=== PATIENT | male | born 1960 | race Caucasian/White ===

== ENCOUNTER 2017-08-04 16:35 | Inpatient (IN) | payer OTHER ==
[2017-08-04] MEDS ORDERED: Labetalol 25mg/5ml Syringe IV STA (17:12)
[2017-08-04] MEDS ORDERED: Labetalol 25mg/5ml Syringe ONE (17:13)
[2017-08-04 17:25] LABS: BASO # 0.1 K/uL (0.0-0.2); BASO % 0.6 % (0.0-2.0); EOS # 0.1 K/uL (0.0-0.7); EOS % 0.7 % (0.0-4.0); HEMOGLOBIN 12.5 g/dL (12.0-18.0); LYMPH # 1.8 K/uL (1.0-4.3); LYMPH % 16.9 % (20.0-40.0); MEAN CELL VOLUME 87.8 fL (80.0-94.0); MEAN CORPUSCULAR HEMOGLOBIN 30.8 pg (27.0-31.0); MEAN CORPUSCULAR HGB CONC 35.1 g/dL (33.0-37.0); MONO # 0.5 K/uL (0.0-0.8); MONO % 5.1 % (0.0-10.0); NEUT # 8.1 K/uL (1.8-7.0); NEUT % 76.7 % (50.0-75.0); NRBC % 0.1 % (0.0-2.0); RBC 4.05 Mil/uL (4.40-5.90); RED CELL DISTRIBUTION WIDTH 13.6 % (11.5-14.5); WHITE BLOOD COUNT 10.6 K/uL (4.8-10.8)
[2017-08-04] MEDS ORDERED: Sodium Chloride 0.9% 1,000 ML IV ONE (17:33)
[2017-08-04] MEDS ORDERED: (Novolin R) Insulin Human Regular 100 units/ml vial IV ONE (17:33)
[2017-08-04 17:39] LABS: ALBUMIN 3.7 g/dL (3.5-5.0); CALCIUM 9.1 mg/dl (8.6-10.4)
[2017-08-04] MEDS ORDERED: Sodium Chloride 0.9% 1,000 ML ONE (17:51)
[2017-08-04] MEDS ORDERED: (Novolin R) Insulin Human Regular 100 units/ml vial ONE (17:52)
--- NOTE | 2017-08-04 18:12 | CT ---
PROCEDURE: CT scan brain dated 08/04/2017 HISTORY: Headache COMPARISON: None available. TECHNIQUE: Axial computed tomography images were obtained through the head/brain without intravenous contrast. Radiation dose: Total exam DLP = 881.46 mGy-cm. This CT exam was performed using one or more of the following dose reduction techniques: Automated exposure control, adjustment of the mA and/or kV according to patient size, and/or use of iterative reconstruction technique. FINDINGS: HEMORRHAGE: The current study reveals what appears represent a large amount of subarachnoid hemorrhage pre pontine cistern extending posteriorly and inferiorly into the ambient cistern more so on the right side and pre medullary cistern and anterior to upper cervicomedullary junction. . Hemorrhage is also seen layering along the tentorium. While this could be secondary to rupture of a telangiectasia the possibility of a basilar tip aneurysm must also be excluded. Followup CTA of the brain is recommended. BRAIN: There are mild chronic periventricular white matter ischemic changes seen extending peripherally into the deep and subcortical regions of both cerebral hemispheres most pronounced in the occipito parietal watershed zones. There are also chronic bilateral basal nuclei lacunar type infarcts. VENTRICLES: No obstructive hydrocephalus. CALVARIUM: Unremarkable. PARANASAL SINUSES: Unremarkable as visualized. No significant inflammatory changes. MASTOID AIR CELLS: Unremarkable as visualized. No inflammatory changes. OTHER FINDINGS: None. IMPRESSION: The current study reveals what appears represent a large amount of subarachnoid hemorrhage pre pontine cistern extending posteriorly and inferiorly into the ambient cistern more so on the right side and premedullary cistern and anterior to upper cervicomedullary junction. . Hemorrhage is also seen layering along the tentorium. While this could be secondary to rupture of a telangiectasia the possibility of a basilar tip aneurysm must also be excluded. Followup CTA of the brain is recommended. Findings discussed with Dr. Calvillo at approximately 6 p.m. with written down and read back verification.
--- NOTE | 2017-08-04 18:19 | C.PDOC ---
History Of Present Illness 56 year old male, whose PMHx includes HTN, presents to the ED for evaluation of headache which began at around 1300 today. Patient states he was at work when he started to feel hot and flushed. His blood pressure was noted to be 216/135 in ED. Patient denies vision change, chest pain, and shortness of breath. He reports that he is compliant with his blood pressure medication and did take it this morning. Time Seen by Provider: 08/04/17 17:11 Chief Complaint (Nursing): Abdominal Pain History Per: Patient History/Exam Limitations: no limitations Onset/Duration Of Symptoms: Hrs Current Symptoms Are (Timing): Still Present Quality Of Discomfort: Aching Associated Symptoms: denies: Chest Pain Additional History Per: Patient Past Medical History Reviewed: Historical Data, Nursing Documentation, Vital Signs Vital Signs: Last Vital Signs Temp 98 F 08/04/17 16:54 Pulse 101 H 08/04/17 18:55 Resp 33 H 08/04/17 18:55 BP 231/130 H 08/04/17 19:00 Pulse Ox 99 08/04/17 19:39 - Medical History PMH: Asthma, CHF, COPD, Diabetes, HTN (uncontrolled), Hypercholesterolemia Denies: Chronic Kidney Disease Surgical History: Appendectomy (1997), Coronary Stent (1 stent placed 5 years ago) - [facility] Procedures DETOXIFICATION SERVICES FOR SUBSTANCE ABUSE TREATMENT (05/17/15) INSERTION OF ENDOTRACHEAL AIRWAY INTO TRACHEA, VIA OPENING (05/17/15) MEASURE OF CARDIAC SAMPL & PRESSURE, L HEART, PERC APPROACH (05/17/15) OTHER APPENDECTOMY (04/09/98) PLAIN RADIOGRAPHY OF LEFT HEART USING OTHER CONTRAST (05/17/15) PLAIN RADIOGRAPHY OF MULT COR ART USING OTH CONTRAST (05/17/15) RESPIRATORY VENTILATION, 24-96 CONSECUTIVE HOURS (05/17/15) Family History: States: Unknown Family Hx - Social History Hx Tobacco Use: Yes Hx Alcohol Use: Yes Hx Substance Use: No - Immunization History Hx Tetanus Toxoid Vaccination: Yes Hx Influenza Vaccination: No Hx Pneumococcal Vaccination: No Review Of Systems Constitutional: Positive for: Other (feeling hot and flushed ) Eyes: Negative for: Vision Change Cardiovascular: Negative for: Chest Pain Respiratory: Negative for: Shortness of Breath Neurological: Positive for: Headache Physical Exam - Physical Exam Appears: Non-toxic Skin: Warm, Dry, Other (flushed ) Head: Atraumatic, Normacephalic Eye(s): bilateral: Normal Inspection, PERRL, EOMI Oral Mucosa: Moist Neck: Normal ROM, Supple Chest: Symmetrical, No Deformity, No Tenderness Cardiovascular: Rhythm Regular, No Murmur Respiratory: Normal Breath Sounds, No Rales, No Rhonchi, No Wheezing Gastrointestinal/Abdominal: Normal Exam, Soft, No Tenderness Extremity: Normal ROM, Pedal Edema (2+ pitting in both lower legs), Capillary Refill (less than 2 seconds ) Pulses: Left Carotid: Normal, Right Carotid: Normal Neurological/Psych: Oriented x3, Normal Speech, Normal Cognition, Normal Cranial Nerves, Cerebellar Signs, Normal Motor, Normal Sensation, Normal Reflexes Gait: Steady Extremity: Right: No Drift, Left: No Drift, Upper: No Drift, Lower: No Drift ED Course And Treatment - Laboratory Results Result Diagrams: 08/04/17 17:20 08/04/17 17:20 Lab Interpretation: Abnormal (Glucose 455, BNP 8630, normal Troponin) ECG: Interpreted By Me ECG Rhythm: Sinus Tachycardia, ST/T Changes (T waves inverted I,AVL) O2 Sat by Pulse Oximetry: 99 (on RA) Pulse Ox Interpretation: Normal - Radiology CXR: Interpreted by Me CXR Interpretation: Yes: Cardiomegaly, Other (bilateral patchy infiltrates ) - CT Scan/US CT brain Other Rad Studies (CT/US): Interpreted By Me, Read By Radiologist CT/US Interpretation: PROCEDURE: CT scan brain dated 08/04/2017. HISTORY: Headache. COMPARISON: None available. TECHNIQUE: Axial computed tomography images were obtained through the head/brain without intravenous contrast. Radiation dose: Total exam DLP = 881.46 mGy-cm. This CT exam was performed using one or more of the following dose reduction techniques: Automated exposure control, adjustment of the mA and/or kV according to patient size, and/ or use of iterative reconstruction technique. FINDINGS: HEMORRHAGE: The current study reveals what appears represent a large amount of subarachnoid hemorrhage pre pontine cistern extending posteriorly and inferiorly into the ambient cistern more so on the right side and pre medullary cistern and anterior to upper cervicomedullary junction. . Hemorrhage is also seen layering along the tentorium. While this could be secondary to rupture of a telangiectasia the possibility of a basilar tip aneurysm must also be excluded. Followup CTA of the brain is recommended. BRAIN: There are mild chronic periventricular white matter ischemic changes seen extending peripherally into the deep and subcortical regions of both cerebral hemispheres most pronounced in the occipito parietal watershed zones. There are also chronic bilateral basal nuclei lacunar type infarcts. VENTRICLES: No obstructive hydrocephalus. CALVARIUM: Unremarkable. PARANASAL SINUSES: Unremarkable as visualized. No significant inflammatory changes. MASTOID AIR CELLS: Unremarkable as visualized. No inflammatory changes. OTHER FINDINGS: None. IMPRESSION: The current study reveals what appears represent a large amount of subarachnoid hemorrhage pre pontine cistern extending posteriorly and inferiorly into the ambient cistern more so on the right side and premedullary cistern and anterior to upper cervicomedullary junction. . Hemorrhage is also seen layering along the tentorium. While this could be secondary to rupture of a telangiectasia the possibility of a basilar tip aneurysm must also be excluded. Followup CTA of the brain is recommended. Findings discussed with Dr. Calvillo at approximately 6 p.m. with written down and read back verification. CTA Head Other Rad Studies (CT/US): Interpreted By Me, Read By Radiologist, Radiology Report Reviewed CT/US Interpretation: EXAM: CT Angiography Head With Intravenous Contrast. CLINICAL HISTORY: 56 years old, male; Condition or disease; Other: Hemmorhage; Additional info: Subarachnoid. hemorrhoid. TECHNIQUE: Axial computed tomographic angiography images of the head with intravenous contrast using CT. angiography protocol. All CT scans at this facility use one or more dose reduction techniques, viz.: automated exposure control; ma/kV adjustment per patient size (including targeted exams where. dose is matched to indication; i.e. head); or iterative reconstruction technique. MIP reconstructed images were created and reviewed. CONTRAST: 100 mL of visipaque 320 administered intravenously. COMPARISON: CT - HEAD W/O CONTRAST 2017-08-04 17:38. FINDINGS : Right internal carotid artery: The right cavernous ICA with diffuse arteriosclerosis of the arterial wall. Intracranial segment is patent with no significant stenosis. No aneurysm. Right anterior cerebral artery: Unremarkable. No occlusion or significant stenosis. No aneurysm. Right middle cerebral artery: Unremarkable. No occlusion or significant stenosis. No aneurysm. Right posterior cerebral artery: Unremarkable. No occlusion or significant stenosis. No aneurysm. Right vertebral artery: Unremarkable as visualized. Left internal carotid artery: The left cavernous ICA with diffuse arteriosclerosis of the arterial wall. Intracranial segment is patent with no significant stenosis. No aneurysm. Left anterior cerebral artery: Unremarkable. No occlusion or significant stenosis. No aneurysm. Left middle cerebral artery: Unremarkable. No occlusion or significant stenosis. No aneurysm. Left posterior cerebral artery: Unremarkable. No occlusion or significant stenosis. No aneurysm. Left vertebral artery: Unremarkable as visualized. Basilar artery: Unremarkable. No occlusion or significant stenosis. No aneurysm Other findings: Persistent circulation pattern is seen on the right, normal anatomic variant. IMPRESSION: No significant vascular abnormalities are visualized. Stenosis, no aneurysm, no arterial occlusion. Progress Note: Case discussed with Dr Roque and Dr Carvajal. Patient is not a surgical candidate at this time. Case to be discussed with Dr Wilson for IR. Patient continued to be severely hypertensiove despite receiving Labetolol 20mg IVP x2, Nicardipine drip, Hydralazine 10mg IVP. He developed a flash pulmonary edema with decrease of pulse ox to 92% on 2l NC associated with respiratory distress. Patient denies assoicated chest pain. O2 increased to 100 % NRB and patient administered Lasix 80mg IVP and NTG 0.4mg SL. Cross catheter inserted and drained 1200ml of clear urine. BP gradually decreased to 170/90 and respiratory distress resolved. Reevaluation Time: 19:59 Reassessment Condition: Improved - Physician Consult Information Outcome Of Conversation: Dr Romeo evaluated patient for admission to ICU. Dr Robles notified and accepts patient for Dr Fish. Dr Wilson states patient can be transferred to [facility] tomorrow after stabilization tonight. Medical Decision Making Medical Decision Making: Progress: Bloodwork, CXR, CT Angiography Head, CTA Head/Neck, CT Head ordered and reviewed. Novolin IV, Trandate IV, Cardene IV, and IV Fluids administered. Patient with sudden onset of shortness of breath. Patient denies chest pain. Diffuse rales and tachypnea noted. EKG shows no ST segment changes. 80mg Lasix IVP and 0.4mg Nitroglycerin SL administered. Patient's blood pressure continues to be elevated. 10mg Hydralazine administered. 19:32 Patient's condition has improved. He is resting comfortably, and appears to be in no further respiratory distress. blood pressure is now 170/90. 1200cc of urine obtained. Disposition - Disposition Disposition: HOSPITALIZED Disposition Time: 20:00 Condition: CRITICAL - POA Present On Arrival: Poor Glycemic Control - Clinical Impression Clinical Impression: Pulmonary edema, Subarachnoid hemorrhage - Scribe Statement The provider has reviewed the documentation as recorded by the Scribe Provider Attestation: All medical record entries made by the Scribe were at my direction and personally dictated by me. I have reviewed the chart and agree that the record accurately reflects my personal performance of the history, physical exam, medical decision making, and the department course for this patient. I have also personally directed, reviewed, and agree with the discharge instructions and disposition.
[2017-08-04] MEDS ORDERED: Iodixanol 320 MG/ML 100 ML BOTTLE IV ONE (18:24)
[2017-08-04] MEDS: niCARdipine IV 25 MG in Sodium Chloride 0.9% 240 ML IV SCH ×2 (18:30→21:30)
[2017-08-04 19:33] LABS: TROPONIN I 0.077 ng/mL (0.00-0.120)
--- NOTE | 2017-08-04 20:19 | CP.PCM.CON ---
History of Present Illness - History of Present Illness History of Present Illness: Attending: Abe Becerra MD PMD: Angelica Cardenas MD Reason for Consult: Critical care management Chief Complaint: Headache/Vomiting The Patient was seen and examined in the ED with his family present HPI: The hx was obtained from the Patient, his family and after review of the medical records. He is a 56 years old male with hx of DM II, HTN , CAD and Alcohol dependence. He was brought to the ED after he developed a sudden severe cja-[id number]-qysomrhe headache at work, feeling hot and flush with dizziness, blurring of the vision, nausea, vomits. No loss of consciousness, no hx of trauma. No chest pain nor palpitations. In the ED he was found to have Blood Pressure of 248/136mmHg. He was treated with IV labetalol, Hydralazine and later Cardene started. He also developed new and sudden unset of Shortness of breath with rales in both lung bergman in the ED. Treated with IV lasix. 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 absent: Fever, Lethargy, Malaise, Weakness - EENT Eyes: Blurred Vision, Requires Corrective Lenses. absent: Diplopia, Sees Flashes Ears: absent: Decreased Hearing, Ear Discharge, Tinnitus Nose/Mouth/Throat: absent: Epistaxis, Nasal Congestion, Nasal Discharge, Sinus Pain, Sinus Pressure - Cardiovascular Cardiovascular: Dyspnea, Edema, Leg Edema. absent: Chest Pain, Palpitations - Respiratory Respiratory: Dyspnea. absent: Cough, Wheezing, Stridor - Gastrointestinal Gastrointestinal: Nausea, Vomiting. absent: Abdominal Pain, Constipation, Diarrhea - Genitourinary Genitourinary: absent: Dysuria, Flank Pain - Musculoskeletal Musculoskeletal: absent: Arthralgias, Muscle Weakness, Stiffness - Integumentary Integumentary: absent: Pruritus, Rash, Skin Ulcer, Sores, Striae - Neurological Neurological: Dizziness, Headaches. absent: Confusion, Focal Weakness, Weakness - Psychiatric Psychiatric: absent: Anxiety, Depression, Panic Attacks - Endocrine Endocrine: absent: Palpitations, Polydipsia, Polyphagia, Polyuria - Hematologic/Lymphatic Hematologic: absent: Easy Bleeding, Easy Bruising Past Patient History - Past Medical History & Family History Past Medical History?: Yes - Past Social History Smoking Status: Former Smoker Chewing Tobacco Use: No Cigar Use: No Alcohol: > 2 Drinks/Day Drugs: Denies, Inhalants Home Situation {Lives}: Alone - CARDIAC Hx Congestive Heart Failure: Yes Hx Hypercholesterolemia: Yes Hx Hypertension: Yes (uncontrolled) - PULMONARY Hx Asthma: Yes Hx Chronic Obstructive Pulmonary Disease (COPD): Yes - NEUROLOGICAL Hx Neurological Disorder: No - HEENT Hx HEENT Problems: No - RENAL Hx Chronic Kidney Disease: No - ENDOCRINE/METABOLIC Hx Diabetes Mellitus Type 2: Yes (uncontrolled) - HEMATOLOGICAL/ONCOLOGICAL Hx Blood Disorders: No - INTEGUMENTARY Hx Dermatological Problems: No - MUSCULOSKELETAL/RHEUMATOLOGICAL Hx Musculoskeletal Disorders: No Hx Falls: No - GASTROINTESTINAL Hx Gastrointestinal Disorders: No Other/Comment: "liver problem" - GENITOURINARY/GYNECOLOGICAL Hx Genitourinary Disorders: No - PSYCHIATRIC Hx Substance Use: No - SURGICAL HISTORY Hx Appendectomy: Yes (1997) Hx Coronary Stent: Yes (1 stent placed 5 years ago) - ANESTHESIA Hx Anesthesia: Yes Hx Anesthesia Reactions: No Hx Malignant Hyperthermia: No Meds Allergies/Adverse Reactions: Allergies Allergy/AdvReac Type Severity Reaction Status Date / Time No Known Allergies Allergy Verified 05/14/15 06:15 - Medications Medications: Current Medications Hydralazine HCl (Apresoline) 10 mg IVP STAT JESSE Last Admin: 08/04/17 19:04 Dose: 10 mg Nicardipine HCl 25 mg/ Sodium (Chloride) 250 mls @ 50 mls/hr IV .Q5H JESSE; 5 MG/ HR PRN Reason: Protocol Last Admin: 08/04/17 18:30 Dose: 50 mls/hr Nitroglycerin (Nitrostat Sl Tab) 0.4 mg SL Q5M PRN PRN Reason: Shortness of Breath Last Admin: 08/04/17 18:50 Dose: 0.4 mg Physical Exam - Constitutional Appears: No Acute Distress - Head Exam Head Exam: ATRAUMATIC, NORMAL INSPECTION, NORMOCEPHALIC - Eye Exam Eye Exam: absent: Normal appearance Pupil Exam: NORMAL ACCOMODATION, PERRL Additional comments: Right lateral rectus muscle weakness with Diplopia. - ENT Exam ENT Exam: Mucous Membranes Moist, Normal Exam, Normal External Ear Exam - Neck Exam Neck exam: Positive for: Full Rom, Normal Inspection. Negative for: Lymphadenopathy, Tenderness - Respiratory Exam Additional comments: Inspiratory rales generalized at both lung bergman. - Cardiovascular Exam Cardiovascular Exam: REGULAR RHYTHM, RRR, +S1, +S2. absent: Gallop - GI/Abdominal Exam Additional comments: Full, soft, nontender, +ve bowel sounds No viceromegaleas - Rectal Exam Rectal Exam: Deferred - Extremities Exam Extremities exam: Negative for: calf tenderness Additional comments: Trace edema to both lower extremities - Back Exam Back exam: NORMAL INSPECTION. 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 with diplopia - Psychiatric Exam Psychiatric exam: Normal Affect, Normal Mood - Skin Skin Exam: Dry, Intact, Normal Color, Warm Results - Vital Signs Recent Vital Signs: Last Vital Signs Temp 98 F 08/04/17 16:54 Pulse 101 H 08/04/17 18:55 Resp 33 H 08/04/17 18:55 BP 231/130 H 08/04/17 19:00 Pulse Ox 99 08/04/17 20:01 - Labs Result Diagrams: 08/04/17 17:20 08/04/17 17:20 Labs: Laboratory Results - last 24 hr 08/04/17 08/04/17 08/04/17 17:20 17:20 17:25 WBC 10.6 D RBC 4.05 L Hgb 12.5 Hct 35.5 MCV 87.8 D MCH 30.8 MCHC 35.1 RDW 13.6 Plt Count 239 MPV 9.0 Neut % (Auto) 76.7 H Lymph % (Auto) 16.9 L [place] % (Auto) 5.1 Eos % (Auto) 0.7 Baso % (Auto) 0.6 Neut # (Auto) 8.1 H Lymph # (Auto) 1.8 [place] # (Auto) 0.5 Eos # (Auto) 0.1 Baso # (Auto) 0.1 Sodium 137 Potassium 3.8 Chloride 104 Carbon Dioxide 20 L Anion Gap 18 BUN 26 H Creatinine 1.5 Est GFR ( Amer) 58 Est GFR (Non-Af Amer) 48 POC Glucose (mg/dL) 413 H* Random Glucose 455 H* D Calcium 9.1 Total Bilirubin 0.6 AST 65 H D ALT 48 Alkaline Phosphatase 169 H D Troponin I NT-Pro-B Natriuret Pep Total Protein 7.4 Albumin 3.7 Globulin 3.7 Albumin/Globulin Ratio 1.0 08/04/17 08/04/17 08/04/17 17:27 18:33 19:06 WBC RBC Hgb Hct MCV MCH MCHC RDW Plt Count MPV Neut % (Auto) Lymph % (Auto) [place] % (Auto) Eos % (Auto) Baso % (Auto) Neut # (Auto) Lymph # (Auto) [place] # (Auto) Eos # (Auto) Baso # (Auto) Sodium Potassium Chloride Carbon Dioxide Anion Gap BUN Creatinine Est GFR ( Amer) Est GFR (Non-Af Amer) POC Glucose (mg/dL) 419 H* 349 H Random Glucose Calcium Total Bilirubin AST ALT Alkaline Phosphatase Troponin I 0.0770 NT-Pro-B Natriuret Pep 8630 H Total Protein Albumin Globulin Albumin/Globulin Ratio - Imaging and Cardiology CT scan - head Status: Image reviewed by me, Report reviewed by me Additional comment: CT brain FINDINGS: HEMORRHAGE: The current study reveals what appears represent a large amount of subarachnoid hemorrhage pre pontine cistern extending posteriorly and inferiorly into the ambient cistern more so on the right side and pre medullary cistern and anterior to upper cervicomedullary junction. . Hemorrhage is also seen layering along the tentorium. While this could be secondary to rupture of a telangiectasia the possibility of a basilar tip aneurysm must also be excluded. Followup CTA of the brain is recommended. BRAIN: There are mild chronic periventricular white matter ischemic changes seen extending peripherally into the deep and subcortical regions of both cerebral hemispheres most pronounced in the occipito parietal watershed zones. There are also chronic bilateral basal nuclei lacunar type infarcts. VENTRICLES: No obstructive hydrocephalus. CALVARIUM: Unremarkable. PARANASAL SINUSES: Unremarkable as visualized. No significant inflammatory changes. MASTOID AIR CELLS: Unremarkable as visualized. No inflammatory changes. OTHER FINDINGS: None. IMPRESSION: The current study reveals what appears represent a large amount of subarachnoid hemorrhage pre pontine cistern extending posteriorly and inferiorly into the ambient cistern more so on the right side and premedullary cistern and anterior to upper cervicomedullary junction. . Hemorrhage is also seen layering along the tentorium. While this could be secondary to rupture of a telangiectasia the possibility of a basilar tip aneurysm must also be excluded. Followup CTA of the brain is recommended. Findings discussed with Dr. Calvillo at approximately 6 p.m. with written down and read back verification. CTA Brain Status: Report reviewed by me Additional comment: CTA Head FINDINGS: Right internal carotid artery: The right cavernous ICA with diffuse arteriosclerosis of the arterial wall. Intracranial segment is patent with no significant stenosis. No aneurysm. Right anterior cerebral artery: Unremarkable. No occlusion or significant stenosis. No aneurysm. Right middle cerebral artery: Unremarkable. No occlusion or significant stenosis. No aneurysm. Right posterior cerebral artery: Unremarkable. No occlusion or significant stenosis. No aneurysm. Right vertebral artery: Unremarkable as visualized. Left internal carotid artery: The left cavernous ICA with diffuse arteriosclerosis of the arterial wall. Intracranial segment is patent with no significant stenosis. No aneurysm. Left anterior cerebral artery: Unremarkable. No occlusion or significant stenosis. No aneurysm. Left middle cerebral artery: Unremarkable. No occlusion or significant stenosis. No aneurysm. Left posterior cerebral artery: Unremarkable. No occlusion or significant stenosis. No aneurysm. Left vertebral artery: Unremarkable as visualized. Basilar artery: Unremarkable. No occlusion or significant stenosis. No aneurysm Other findings: Persistent circulation pattern is seen on the right, normal anatomic variant. IMPRESSION: No significant vascular abnormalities are visualized. Stenosis, no aneurysm, no arterial occlusion. Chest x-ray Status: Image reviewed by me Additional comment: Increased Cardiac Silhouette Bibasal interstitial infiltrate Assessment & Plan - Assessment and Plan (Free Text) Assessment: #. Subaracnoid Hemorrhage #. Hypertensive Emergency #. Acute Pulmonary Edema #. Dm II with hyperglycemia #. Azotemia #. CAD Plan: 56 years old male with hx of DM II, HTN , CAD and Alcohol dependence, comes with sudden unset of headache associated with dizziness, blurring of the vision , nausea and vomits. In the ED he was found to have Blood Pressure of 248/ 136mmHg. Here he also developed sudden Shortness of breath with rales in both lung bergman.In the ICU he was noted to have weakness of the right lateral rectus muscle. #. 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 . Hemorrhage is also seen layering along the tentorium. - Dr Roque neurologist on consult - Dr Carvajal neurosurgeon was called by ED - Dr Lepe from IR was called by ED The patient was treated with Labetalol and Hydralazine in the ED. Cardene drip started. Titrate to maintain SBP 140-150mmHg or a MAP no lower than 110 - Neuro checks Q1h and repeat Head CT without contrast if any changes - Maintain head of bed 45 degrees up - Swallow evaluation - PT/OT #. Acute Pulmonary Edema most likely caused by the elevated blood pressure in a patient with hx of EF of 20-25% in 05/21/15 and Systolic/Diastolic Congested Heart failure. - Consult Cardiology Dr Davenport - Lasix 80mg given in ED - Lasix 40mg IV Daily - Restart Vasotec when patient start taking oral medication - Restart Coreg - ECHO #. DM II with hyperglycemia - Hold metformin for 48 hours post Radiocontrast - Regular insulin sliding scale according to accucheck - Levemir - HbA1c #. Azotemia - Follow renal labs #. Alcohol dependence - Banana bag with Thiamine/Folic Acid/ Multivitamins Low rate IV #. Stress ulcer Prophylaxis with #. DVT prophylaxis with SCD #. Code Status: Full Apparently Decision was made to transfer the patient to [facility] by ED Dr Calvillo and Dr Lepe from IR, but, because of the Flash Pulmonary edema and the patient becoming unstable, and the fact that no bed was available, Mr Osuna is being admitted to the ICU here at [facility] for management with stabilization and probably transfer in The AM if he agrees. Attempt was made to contact Dr Lepe but his Mail box was full on his telephone. Kaiden Romeo MD - Date & Time Date: 08/04/17 Time: 20:19
[2017-08-04] MEDS ORDERED: Insulin Detemir 100 units/ml Vial (Levemir) SC SCH (20:35)
[2017-08-04 21:16] LABS: ABG ALLEN TEST POS; ARTERIAL BLOOD GAS HCO3 21.3 mmol/L (21-28); ARTERIAL BLOOD GAS HEMOGLOBIN 12.3 g/dL (11.7-17.4); ARTERIAL BLOOD GAS O2 SAT 100.1 % (95-98); ARTERIAL BLOOD GAS PCO2 31 mm/Hg (35-45); ARTERIAL BLOOD GAS PO2 262 mm/Hg (80-100); ARTERIAL BLOOD GAS TCO2 20.2 mmol/L (22-28)
[2017-08-04 21:36] LABS: INR 1.1; PROTHROMBIN TIME 11.7 SECONDS (9.7-12.2)
[2017-08-04] MEDS ORDERED: Multivitamin (MVI) 10 ML, Thiamine 100 MG, Folic Acid 1 MG in Sodium Chloride 0.9% 1,00... IV ONE (21:43)
--- NOTE | 2017-08-04 23:32 | CP.PCM.HP ---
<Isaac Marion - Last Filed: 08/05/17 04:10> History of Present Illness - History of Present Illness History of Present Illness: This is a 56 yo male, originally from [place], with past medical hx of HTN, DM, HLD, cardiac stent, presenting to ER with chief complaint of headache. Pt was brought in by ambulance. 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 He started having a headache suddenly about 1 PM. He denies trauma. He says it has never happened before. It is frontal in location. It was 5/10 in intensity. He denies radiation. Denies fevers, chills, vomiting. He denies chest pain, palpitations, syncope, dizziness. 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 He denies any change in vision currently, but did have some blurry vision when the headache first started. Pt had cardiac cath done in [address] Arellano showing severe cardiomyopathy with EF of 20-25 percent. In ER, blood pressure, was in 240s systolic and patient was given IV labetalol and hydralazine and started on a nicardipine drip. Pt developed shortness of breath and flash pulmonary edema and rales were heard in the lungs. PMD: Theresa Specialists: none Insurance: [employer] PPO Code status: full code PMH: DM, HTN, HLD, cardiac stent (2017), asthma, COPD, heart failure with reduced ejection fraction PSH: appendectomy, cardiac stent Allergies: NKDA FH: Mother- - pt does not know her medical hx Father- - pt does not know his medical hx Social hx: Lives in [place], [place]. Former smoker. Quit 10 yrs ago. Smoked 3 ppd for 20 yrs. Lives alone with dog. Denies drug use. Says he drinks 1 beer/day. 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 Able to do all ADLs and live independently. Present on Admission - Present on Admission Any Indicators Present on Admission: No History of DVT/PE: No History of Uncontrolled Diabetes: No Urinary Catheter: No Decubitus Ulcer Present: No Review of Systems - Constitutional Constitutional: Headache. absent: Chills, Fever - EENT Eyes: absent: Blurred Vision, Change in Vision Ears: absent: Ear Pain Nose/Mouth/Throat: absent: Sore Throat, Neck Pain - Cardiovascular Cardiovascular: absent: Chest Pain, Chest Pain at Rest, Dyspnea - Respiratory Respiratory: Dyspnea. absent: Cough, Hemoptysis, Dyspnea on Exertion - Gastrointestinal Gastrointestinal: absent: Abdominal Pain, Nausea, Vomiting - Genitourinary Genitourinary: absent: Change in Urinary Stream, Difficulty Urinating - Musculoskeletal Musculoskeletal: absent: Numbness, Stiffness - Integumentary Integumentary: absent: Bleeding Lesions, Changing Lesions - Neurological Neurological: absent: Syncope, Tingling, Weakness - Psychiatric Psychiatric: absent: Hallucinations, Visual Hallucinations - Hematologic/Lymphatic Hematologic: absent: Easy Bleeding, Easy Bruising Past Patient History - Infectious Disease Hx of Infectious Diseases: None - Tetanus Immunizations Tetanus Immunization: Unknown - Past Medical History & Family History Past Medical History?: Yes Past Family History: Reviewed and not pertinent - Past Social History Smoking Status: Former Smoker Chewing Tobacco Use: No Cigar Use: No Alcohol: < 2 Drinks/Day Drugs: Denies Home Situation {Lives}: Alone - CARDIAC Hx Congestive Heart Failure: Yes Hx Hypercholesterolemia: Yes Hx Hypertension: Yes (uncontrolled) - PULMONARY Hx Asthma: Yes Hx Chronic Obstructive Pulmonary Disease (COPD): Yes - NEUROLOGICAL Hx Neurological Disorder: No - HEENT Hx HEENT Problems: No - RENAL Hx Chronic Kidney Disease: No - ENDOCRINE/METABOLIC Hx Diabetes Mellitus Type 2: Yes (uncontrolled) - HEMATOLOGICAL/ONCOLOGICAL Hx Blood Disorders: No - INTEGUMENTARY Hx Dermatological Problems: No - MUSCULOSKELETAL/RHEUMATOLOGICAL Hx Musculoskeletal Disorders: No Hx Falls: No - GASTROINTESTINAL Hx Gastrointestinal Disorders: No Other/Comment: "liver problem" - GENITOURINARY/GYNECOLOGICAL Hx Genitourinary Disorders: No - PSYCHIATRIC Hx Substance Use: No - SURGICAL HISTORY Hx Appendectomy: Yes (1997) Hx Coronary Stent: Yes (1 stent placed 5 years ago) - ANESTHESIA Hx Anesthesia: Yes Hx Anesthesia Reactions: No Hx Malignant Hyperthermia: No Meds Allergies/Adverse Reactions: Allergies Allergy/AdvReac Type Severity Reaction Status Date / Time No Known Allergies Allergy Verified 05/14/15 06:15 Physical Exam - Constitutional Appears: Non-toxic, No Acute Distress - Head Exam Head Exam: ATRAUMATIC, NORMAL INSPECTION, NORMOCEPHALIC - Eye Exam Eye Exam: PERRL. absent: EOMI, Nystagmus Additional comments: right lateral rectus weakness with diplopia - ENT Exam ENT Exam: Mucous Membranes Moist - Neck Exam Neck exam: Positive for: Full Rom, Normal Inspection - Respiratory Exam Respiratory Exam: Rales, NORMAL BREATHING PATTERN. absent: Respiratory Distress - Cardiovascular Exam Cardiovascular Exam: REGULAR RHYTHM, +S1, +S2 - GI/Abdominal Exam GI & Abdominal Exam: Normal Bowel Sounds, Soft. absent: Tenderness - Extremities Exam Extremities exam: Positive for: full ROM, normal inspection - Back Exam Back exam: NORMAL INSPECTION - Neurological Exam Neurological exam: Alert, CN II-XII Intact, Oriented x3 - Psychiatric Exam Psychiatric exam: Normal Affect, Normal Mood - Skin Skin Exam: Dry, Intact, Normal Color, Warm Results - Vital Signs Recent Vital Signs: Last Vital Signs Temp 98 F 08/04/17 16:54 Pulse 95 H 08/04/17 21:32 Resp 30 H 08/04/17 21:32 BP 165/80 H 08/04/17 21:32 Pulse Ox 98 08/04/17 21:32 - Labs Result Diagrams: 08/04/17 17:20 08/04/17 17:20 Labs: Laboratory Results - last 24 hr 08/04/17 08/04/17 08/04/17 17:20 17:20 17:25 WBC 10.6 D RBC 4.05 L Hgb 12.5 Hct 35.5 MCV 87.8 D MCH 30.8 MCHC 35.1 RDW 13.6 Plt Count 239 MPV 9.0 Neut % (Auto) 76.7 H Lymph % (Auto) 16.9 L [place] % (Auto) 5.1 Eos % (Auto) 0.7 Baso % (Auto) 0.6 Neut # (Auto) 8.1 H Lymph # (Auto) 1.8 [place] # (Auto) 0.5 Eos # (Auto) 0.1 Baso # (Auto) 0.1 PT INR APTT Puncture Site pCO2 pO2 HCO3 ABG pH ABG Total CO2 ABG O2 Saturation ABG Base Excess ABG Hemoglobin ABG Carboxyhemoglobin POC ABG HHb (Measured) ABG Methemoglobin Davon Test A-a O2 Difference Respiratory Index Hgb O2 Saturation Liter Flow FiO2 Sodium 137 Potassium 3.8 Chloride 104 Carbon Dioxide 20 L Anion Gap 18 BUN 26 H Creatinine 1.5 Est GFR ( Amer) 58 Est GFR (Non-Af Amer) 48 POC Glucose (mg/dL) 413 H* Random Glucose 455 H* D Calcium 9.1 Total Bilirubin 0.6 AST 65 H D ALT 48 Alkaline Phosphatase 169 H D Troponin I NT-Pro-B Natriuret Pep Total Protein 7.4 Albumin 3.7 Globulin 3.7 Albumin/Globulin Ratio 1.0 08/04/17 08/04/17 08/04/17 17:27 18:33 19:06 WBC RBC Hgb Hct MCV MCH MCHC RDW Plt Count MPV Neut % (Auto) Lymph % (Auto) [place] % (Auto) Eos % (Auto) Baso % (Auto) Neut # (Auto) Lymph # (Auto) [place] # (Auto) Eos # (Auto) Baso # (Auto) PT INR APTT Puncture Site pCO2 pO2 HCO3 ABG pH ABG Total CO2 ABG O2 Saturation ABG Base Excess ABG Hemoglobin ABG Carboxyhemoglobin POC ABG HHb (Measured) ABG Methemoglobin Davon Test A-a O2 Difference Respiratory Index Hgb O2 Saturation Liter Flow FiO2 Sodium Potassium Chloride Carbon Dioxide Anion Gap BUN Creatinine Est GFR ( Amer) Est GFR (Non-Af Amer) POC Glucose (mg/dL) 419 H* 349 H Random Glucose Calcium Total Bilirubin AST ALT Alkaline Phosphatase Troponin I 0.0770 NT-Pro-B Natriuret Pep 8630 H Total Protein Albumin Globulin Albumin/Globulin Ratio 08/04/17 08/04/17 08/04/17 20:32 21:06 21:14 WBC RBC Hgb Hct MCV MCH MCHC RDW Plt Count MPV Neut % (Auto) Lymph % (Auto) [place] % (Auto) Eos % (Auto) Baso % (Auto) Neut # (Auto) Lymph # (Auto) [place] # (Auto) Eos # (Auto) Baso # (Auto) PT 11.7 INR 1.1 APTT 34 Puncture Site Rba pCO2 31 L pO2 262 H HCO3 21.3 ABG pH 7.40 ABG Total CO2 20.2 L ABG O2 Saturation 100.1 H ABG Base Excess -4.6 L ABG Hemoglobin 12.3 ABG Carboxyhemoglobin 1.8 H POC ABG HHb (Measured) -0.1 L ABG Methemoglobin 1.3 Davon Test Pos A-a O2 Difference 412.0 Respiratory Index 1.6 Hgb O2 Saturation 97.1 Liter Flow 15.0 FiO2 100.0 Sodium Potassium Chloride Carbon Dioxide Anion Gap BUN Creatinine Est GFR ( Amer) Est GFR (Non-Af Amer) POC Glucose (mg/dL) 354 H Random Glucose Calcium Total Bilirubin AST ALT Alkaline Phosphatase Troponin I NT-Pro-B Natriuret Pep Total Protein Albumin Globulin Albumin/Globulin Ratio Assessment & Plan - Assessment and Plan (Free Text) Assessment: This is a 56 yo male, originally from [place], with past medical hx of HTN, DM, HLD, cardiac stent, presenting with 1. Headache/subarachnoid hemorrhage. -head ct shows large amount of subarachnoid hemorrhage pre pontine cistern extending posteriorly and inferiorly into the ambient cistern more so on the right side and premedullary cistern and anterior to upper cervicomedullary junction. . Hemorrhage is also seen layering along the tentorium. -neurosurgery consult. Dr. Carvajal. luli appreciated. -Dr. Carvajal wants patient transferred, Dr. Kaiden Romeo aware -neurology consult. Dr. Korya. rockwell appreciated -neurochecks -swallow evaluation -maintain head of bed 45 degrees up -CTA negative -will be seen by IR in morning -needs diagnostic angiography 2. Acute pulmonary edema -lasix 40 mg iv daily -cardiology consult. Dr. Pandya. rockwell appreciated -echo pending 3. Hypertensive emergency given IV labetalol and hydralazine in ER -currently on nicardipine drip -nitroglycerin SL .4 mg PRN 4. hx of DM -levemir 10 units sc HS -regular insulin sliding scale -accuchecks -hypoglycemia protocol -check hgb a1c 5. hx of alcohol use/abuse? -started pt on banana bag -continue to monitor 6. Azotemia -continue to monitor GI/DVT ppx -scds -pepcid 20 mg iv daily -full code status Dispo: plan was initially to transfer pt [facility] but pt was becoming unstable in ER so decision was made to admit here to ICU; f/u <Hernan Fish P - Last Filed: 08/05/17 07:19> Results - Vital Signs Recent Vital Signs: Last Vital Signs Temp 97.7 F 08/05/17 04:00 Pulse 91 H 08/05/17 07:02 Resp 19 08/05/17 07:02 BP 149/73 08/05/17 07:02 Pulse Ox 99 08/05/17 07:02 - Labs Result Diagrams: 08/05/17 06:00 08/05/17 06:00 Labs: Laboratory Results - last 24 hr 08/04/17 08/04/17 08/04/17 17:20 17:20 17:25 WBC 10.6 D RBC 4.05 L Hgb 12.5 Hct 35.5 MCV 87.8 D MCH 30.8 MCHC 35.1 RDW 13.6 Plt Count 239 MPV 9.0 Neut % (Auto) 76.7 H Lymph % (Auto) 16.9 L [place] % (Auto) 5.1 Eos % (Auto) 0.7 Baso % (Auto) 0.6 Neut # (Auto) 8.1 H Lymph # (Auto) 1.8 [place] # (Auto) 0.5 Eos # (Auto) 0.1 Baso # (Auto) 0.1 PT INR APTT Puncture Site pCO2 pO2 HCO3 ABG pH ABG Total CO2 ABG O2 Saturation ABG Base Excess ABG Hemoglobin ABG Carboxyhemoglobin POC ABG HHb (Measured) ABG Methemoglobin Davon Test A-a O2 Difference Respiratory Index Hgb O2 Saturation Liter Flow FiO2 Sodium 137 Potassium 3.8 Chloride 104 Carbon Dioxide 20 L Anion Gap 18 BUN 26 H Creatinine 1.5 Est GFR ( Amer) 58 Est GFR (Non-Af Amer) 48 POC Glucose (mg/dL) 413 H* Random Glucose 455 H* D Calcium 9.1 Phosphorus Magnesium Total Bilirubin 0.6 AST 65 H D ALT 48 Alkaline Phosphatase 169 H D Troponin I NT-Pro-B Natriuret Pep Total Protein 7.4 Albumin 3.7 Globulin 3.7 Albumin/Globulin Ratio 1.0 Triglycerides Cholesterol LDL Cholesterol Direct HDL Cholesterol Urine Color Urine Clarity Urine pH Ur Specific [place] Urine Protein Urine Glucose (UA) Urine Ketones Urine Blood Urine Nitrate Urine Bilirubin Urine Urobilinogen Ur Leukocyte Esterase Urine WBC (Auto) Urine RBC (Auto) Ur Squamous Epith Cells Amorphous Sediment Urine Bacteria 08/04/17 08/04/17 08/04/17 17:27 18:33 19:06 WBC RBC Hgb Hct MCV MCH MCHC RDW Plt Count MPV Neut % (Auto) Lymph % (Auto) [place] % (Auto) Eos % (Auto) Baso % (Auto) Neut # (Auto) Lymph # (Auto) [place] # (Auto) Eos # (Auto) Baso # (Auto) PT INR APTT Puncture Site pCO2 pO2 HCO3 ABG pH ABG Total CO2 ABG O2 Saturation ABG Base Excess ABG Hemoglobin ABG Carboxyhemoglobin POC ABG HHb (Measured) ABG Methemoglobin Davon Test A-a O2 Difference Respiratory Index Hgb O2 Saturation Liter Flow FiO2 Sodium Potassium Chloride Carbon Dioxide Anion Gap BUN Creatinine Est GFR ( Amer) Est GFR (Non-Af Amer) POC Glucose (mg/dL) 419 H* 349 H Random Glucose Calcium Phosphorus Magnesium Total Bilirubin AST ALT Alkaline Phosphatase Troponin I 0.0770 NT-Pro-B Natriuret Pep 8630 H Total Protein Albumin Globulin Albumin/Globulin Ratio Triglycerides Cholesterol LDL Cholesterol Direct HDL Cholesterol Urine Color Urine Clarity Urine pH Ur Specific [place] Urine Protein Urine Glucose (UA) Urine Ketones Urine Blood Urine Nitrate Urine Bilirubin Urine Urobilinogen Ur Leukocyte Esterase Urine WBC (Auto) Urine RBC (Auto) Ur Squamous Epith Cells Amorphous Sediment Urine Bacteria 08/04/17 08/04/17 08/04/17 20:32 21:06 21:14 WBC RBC Hgb Hct MCV MCH MCHC RDW Plt Count MPV Neut % (Auto) Lymph % (Auto) [place] % (Auto) Eos % (Auto) Baso % (Auto) Neut # (Auto) Lymph # (Auto) [place] # (Auto) Eos # (Auto) Baso # (Auto) PT 11.7 INR 1.1 APTT 34 Puncture Site Rba pCO2 31 L pO2 262 H HCO3 21.3 ABG pH 7.40 ABG Total CO2 20.2 L ABG O2 Saturation 100.1 H ABG Base Excess -4.6 L ABG Hemoglobin 12.3 ABG Carboxyhemoglobin 1.8 H POC ABG HHb (Measured) -0.1 L ABG Methemoglobin 1.3 Davon Test Pos A-a O2 Difference 412.0 Respiratory Index 1.6 Hgb O2 Saturation 97.1 Liter Flow 15.0 FiO2 100.0 Sodium Potassium Chloride Carbon Dioxide Anion Gap BUN Creatinine Est GFR ( Amer) Est GFR (Non-Af Amer) POC Glucose (mg/dL) 354 H Random Glucose Calcium Phosphorus Magnesium Total Bilirubin AST ALT Alkaline Phosphatase Troponin I NT-Pro-B Natriuret Pep Total Protein Albumin Globulin Albumin/Globulin Ratio Triglycerides Cholesterol LDL Cholesterol Direct HDL Cholesterol Urine Color Urine Clarity Urine pH Ur Specific [place] Urine Protein Urine Glucose (UA) Urine Ketones Urine Blood Urine Nitrate Urine Bilirubin Urine Urobilinogen Ur Leukocyte Esterase Urine WBC (Auto) Urine RBC (Auto) Ur Squamous Epith Cells Amorphous Sediment Urine Bacteria 08/04/17 08/05/17 08/05/17 23:45 06:00 06:00 WBC RBC Hgb Hct MCV MCH MCHC RDW Plt Count MPV Neut % (Auto) Lymph % (Auto) [place] % (Auto) Eos % (Auto) Baso % (Auto) Neut # (Auto) Lymph # (Auto) [place] # (Auto) Eos # (Auto) Baso # (Auto) PT INR APTT Puncture Site pCO2 pO2 HCO3 ABG pH ABG Total CO2 ABG O2 Saturation ABG Base Excess ABG Hemoglobin ABG Carboxyhemoglobin POC ABG HHb (Measured) ABG Methemoglobin Davon Test A-a O2 Difference Respiratory Index Hgb O2 Saturation Liter Flow FiO2 Sodium 141 Potassium 3.5 L Chloride 105 Carbon Dioxide 22 Anion Gap 18 BUN 30 H Creatinine 1.5 Est GFR ( Amer) 58 Est GFR (Non-Af Amer) 48 POC Glucose (mg/dL) 475 H* Random Glucose 333 H Calcium 8.6 Phosphorus 3.9 Magnesium 1.9 Total Bilirubin 0.6 AST 29 ALT 30 Alkaline Phosphatase 116 Troponin I 0.1170 NT-Pro-B Natriuret Pep Total Protein 6.7 Albumin 3.2 L Globulin 3.5 Albumin/Globulin Ratio 0.9 L Triglycerides 65 D Cholesterol 253 H LDL Cholesterol Direct 154 H HDL Cholesterol 82 H Urine Color Yellow Urine Clarity Hazy Urine pH 5.0 Ur Specific [place] 1.021 Urine Protein 2+ H Urine Glucose (UA) 3+ H Urine Ketones 1+ H Urine Blood 1+ H Urine Nitrate Negative Urine Bilirubin Negative Urine Urobilinogen Normal Ur Leukocyte Esterase Neg Urine WBC (Auto) 2 Urine RBC (Auto) 7 H Ur Squamous Epith Cells 2 Amorphous Sediment Occ H Urine Bacteria Rare 08/05/17 08/05/17 06:00 06:13 WBC 10.1 RBC 3.65 L Hgb 11.3 L Hct 32.2 L MCV 88.3 MCH 31.0 MCHC 35.1 RDW 14.2 Plt Count 224 MPV 9.4 Neut % (Auto) Lymph % (Auto) [place] % (Auto) Eos % (Auto) Baso % (Auto) Neut # (Auto) Lymph # (Auto) [place] # (Auto) Eos # (Auto) Baso # (Auto) PT INR APTT Puncture Site pCO2 pO2 HCO3 ABG pH ABG Total CO2 ABG O2 Saturation ABG Base Excess ABG Hemoglobin ABG Carboxyhemoglobin POC ABG HHb (Measured) ABG Methemoglobin Davon Test A-a O2 Difference Respiratory Index Hgb O2 Saturation Liter Flow FiO2 Sodium Potassium Chloride Carbon Dioxide Anion Gap BUN Creatinine Est GFR ( Amer) Est GFR (Non-Af Amer) POC Glucose (mg/dL) 343 H Random Glucose Calcium Phosphorus Magnesium Total Bilirubin AST ALT Alkaline Phosphatase Troponin I NT-Pro-B Natriuret Pep Total Protein Albumin Globulin Albumin/Globulin Ratio Triglycerides Cholesterol LDL Cholesterol Direct HDL Cholesterol Urine Color Urine Clarity Urine pH Ur Specific [place] Urine Protein Urine Glucose (UA) Urine Ketones Urine Blood Urine Nitrate Urine Bilirubin Urine Urobilinogen Ur Leukocyte Esterase Urine WBC (Auto) Urine RBC (Auto) Ur Squamous Epith Cells Amorphous Sediment Urine Bacteria Attending/Attestation - Attestation I have personally seen and examined this patient.: Yes I have fully participated in the care of the patient.: Yes I have reviewed all pertinent clinical information: Yes Notes (Text): 08/05/17 07:13 Spontaneous tentorial subdural and subarachnoid bleeding with secondary htn, leading to acute chf, in the baseline cardiomyopathy ef of 20-30% in 2016, improved with control of BP with nicardipine. Patient's only c/o headache but unchanged, on exam right lateral rectus paralysis noticed, unclear if old or new , not h/o diplopia. Plan Control BP with nicardipine, contine ccb any way to prevent vasosmapsm Plan for transfer to [facility] as per neuro intervention eco industrial development consultant Echo May avoid hypertonic saline due to presence of chf, rather use mannitol if needed for raised ict unless other contraindication, or hpertonic saline has to be use with cautiously with lasix. See orders for detail.
[2017-08-05] MEDS ORDERED: (Novolin R) Insulin Human Regular 100 units/ml vial SC SCH
[2017-08-05] MEDS: (Novolin R) Insulin Human Regular 100 units/ml vial SC SCH ×2 (00:15→06:35)
[2017-08-05] MEDS: niCARdipine IV 25 MG in Sodium Chloride 0.9% 240 ML IV SCH ×5 (00:25→15:21)
--- NOTE | 2017-08-05 01:31 | PCM.IRP ---
Chief Complaint: SAH Objective - Vital Signs/Intake and Output Vital Signs (last 24 hours): Vital Signs - 24 hr 08/04/17 08/04/17 08/04/17 16:54 17:10 17:26 Temperature 98 F Pulse Rate 100 H 83 84 Pulse Rate [ Apical] Respiratory 19 20 20 Rate Blood Pressure 248/136 H 234/135 H 209/125 H O2 Sat by Pulse 96 95 96 Oximetry 08/04/17 08/04/17 08/04/17 17:44 18:15 18:55 Temperature Pulse Rate 86 86 101 H Pulse Rate [ Apical] Respiratory 20 26 H 33 H Rate Blood Pressure 216/135 H 226/136 H 231/130 H O2 Sat by Pulse 99 95 94 L Oximetry 08/04/17 08/04/17 08/04/17 19:00 20:01 20:42 Temperature Pulse Rate 93 H Pulse Rate [ Apical] Respiratory 29 H Rate Blood Pressure 231/130 H 159/79 H O2 Sat by Pulse 99 100 Oximetry 08/04/17 08/04/17 08/04/17 21:20 21:29 21:30 Temperature Pulse Rate 96 H 96 H 96 H Pulse Rate [ Apical] Respiratory 26 H Rate Blood Pressure 173/84 H O2 Sat by Pulse 100 Oximetry 08/04/17 08/04/17 08/04/17 21:32 21:47 22:00 Temperature 97.5 F L Pulse Rate 95 H 95 H Pulse Rate [ 94 H Apical] Respiratory 30 H 25 H 25 H Rate Blood Pressure 165/80 H 162/83 H O2 Sat by Pulse 98 100 100 Oximetry 08/04/17 08/04/17 08/05/17 22:03 23:02 00:00 Temperature 97.4 F L Pulse Rate 94 H 100 H 103 H Pulse Rate [ Apical] Respiratory 28 H 30 H 28 H Rate Blood Pressure 144/87 157/81 H 157/81 H O2 Sat by Pulse 100 100 100 Oximetry 08/05/17 08/05/17 00:03 01:02 Temperature Pulse Rate 101 H 100 H Pulse Rate [ Apical] Respiratory 26 H 25 H Rate Blood Pressure 158/79 H 163/78 H O2 Sat by Pulse 100 Oximetry Intake and Output (last 12 hours): Intake & Output 08/04/17 08/04/17 08/05/17 06:59 18:59 06:59 Intake Total 830 Output Total 2705 Balance -1875 Weight 197 lb Intake: IV 350 Intake, IV Amount 480 Left Antecubital 400 Right Antecubital 80 Output: Urine 2705 Urethral (Cross) 410 - Medications Medications: Current Medications Famotidine (Pepcid) 20 mg IVP DAILY JESSE Furosemide (Lasix) 40 mg IVP DAILY JESSE Hydralazine HCl (Apresoline) 10 mg IVP STAT JESSE Last Admin: 08/04/17 19:04 Dose: 10 mg Nicardipine HCl 25 mg/ Sodium (Chloride) 250 mls @ 50 mls/hr IV .Q5H JESSE; 5 MG/ HR PRN Reason: Protocol Last Admin: 08/05/17 00:25 Dose: 10 mg/hr, 100 mls/hr Multivitamins/Vitamin C 10 ml/Thiamine HCl 100 mg/ Folic Acid 1 mg/ Sodium Chloride 1,011.2 mls @ 40 mls/hr IV .Q24H ONE Stop: 08/05/17 21:42 Last Admin: 08/05/17 00:10 Dose: 40 mls/hr Insulin Detemir (Levemir) 10 unit SC HS JESSE Last Admin: 08/04/17 20:40 Dose: 10 unit Insulin Human Regular (Novolin R) 0 unit SC Q6 JESSE PRN Reason: Protocol Last Admin: 08/05/17 00:15 Dose: 12 unit Nitroglycerin (Nitrostat Sl Tab) 0.4 mg SL Q5M PRN PRN Reason: Shortness of Breath Last Admin: 08/04/17 18:50 Dose: 0.4 mg - Labs Labs (last 24 hours): Laboratory Results - last 24 hr 08/04/17 08/04/17 08/04/17 17:20 17:20 17:25 WBC 10.6 D RBC 4.05 L Hgb 12.5 Hct 35.5 MCV 87.8 D MCH 30.8 MCHC 35.1 RDW 13.6 Plt Count 239 MPV 9.0 Neut % (Auto) 76.7 H Lymph % (Auto) 16.9 L [place] % (Auto) 5.1 Eos % (Auto) 0.7 Baso % (Auto) 0.6 Neut # (Auto) 8.1 H Lymph # (Auto) 1.8 [place] # (Auto) 0.5 Eos # (Auto) 0.1 Baso # (Auto) 0.1 PT INR APTT Puncture Site pCO2 pO2 HCO3 ABG pH ABG Total CO2 ABG O2 Saturation ABG Base Excess ABG Hemoglobin ABG Carboxyhemoglobin POC ABG HHb (Measured) ABG Methemoglobin Davon Test A-a O2 Difference Respiratory Index Hgb O2 Saturation Liter Flow FiO2 Sodium 137 Potassium 3.8 Chloride 104 Carbon Dioxide 20 L Anion Gap 18 BUN 26 H Creatinine 1.5 Est GFR ( Amer) 58 Est GFR (Non-Af Amer) 48 POC Glucose (mg/dL) 413 H* Random Glucose 455 H* D Calcium 9.1 Total Bilirubin 0.6 AST 65 H D ALT 48 Alkaline Phosphatase 169 H D Troponin I NT-Pro-B Natriuret Pep Total Protein 7.4 Albumin 3.7 Globulin 3.7 Albumin/Globulin Ratio 1.0 08/04/17 08/04/17 08/04/17 17:27 18:33 19:06 WBC RBC Hgb Hct MCV MCH MCHC RDW Plt Count MPV Neut % (Auto) Lymph % (Auto) [place] % (Auto) Eos % (Auto) Baso % (Auto) Neut # (Auto) Lymph # (Auto) [place] # (Auto) Eos # (Auto) Baso # (Auto) PT INR APTT Puncture Site pCO2 pO2 HCO3 ABG pH ABG Total CO2 ABG O2 Saturation ABG Base Excess ABG Hemoglobin ABG Carboxyhemoglobin POC ABG HHb (Measured) ABG Methemoglobin Davon Test A-a O2 Difference Respiratory Index Hgb O2 Saturation Liter Flow FiO2 Sodium Potassium Chloride Carbon Dioxide Anion Gap BUN Creatinine Est GFR ( Amer) Est GFR (Non-Af Amer) POC Glucose (mg/dL) 419 H* 349 H Random Glucose Calcium Total Bilirubin AST ALT Alkaline Phosphatase Troponin I 0.0770 NT-Pro-B Natriuret Pep 8630 H Total Protein Albumin Globulin Albumin/Globulin Ratio 08/04/17 08/04/17 08/04/17 20:32 21:06 21:14 WBC RBC Hgb Hct MCV MCH MCHC RDW Plt Count MPV Neut % (Auto) Lymph % (Auto) [place] % (Auto) Eos % (Auto) Baso % (Auto) Neut # (Auto) Lymph # (Auto) [place] # (Auto) Eos # (Auto) Baso # (Auto) PT 11.7 INR 1.1 APTT 34 Puncture Site Rba pCO2 31 L pO2 262 H HCO3 21.3 ABG pH 7.40 ABG Total CO2 20.2 L ABG O2 Saturation 100.1 H ABG Base Excess -4.6 L ABG Hemoglobin 12.3 ABG Carboxyhemoglobin 1.8 H POC ABG HHb (Measured) -0.1 L ABG Methemoglobin 1.3 Davon Test Pos A-a O2 Difference 412.0 Respiratory Index 1.6 Hgb O2 Saturation 97.1 Liter Flow 15.0 FiO2 100.0 Sodium Potassium Chloride Carbon Dioxide Anion Gap BUN Creatinine Est GFR ( Amer) Est GFR (Non-Af Amer) POC Glucose (mg/dL) 354 H Random Glucose Calcium Total Bilirubin AST ALT Alkaline Phosphatase Troponin I NT-Pro-B Natriuret Pep Total Protein Albumin Globulin Albumin/Globulin Ratio 08/04/17 23:45 WBC RBC Hgb Hct MCV MCH MCHC RDW Plt Count MPV Neut % (Auto) Lymph % (Auto) [place] % (Auto) Eos % (Auto) Baso % (Auto) Neut # (Auto) Lymph # (Auto) [place] # (Auto) Eos # (Auto) Baso # (Auto) PT INR APTT Puncture Site pCO2 pO2 HCO3 ABG pH ABG Total CO2 ABG O2 Saturation ABG Base Excess ABG Hemoglobin ABG Carboxyhemoglobin POC ABG HHb (Measured) ABG Methemoglobin Davon Test A-a O2 Difference Respiratory Index Hgb O2 Saturation Liter Flow FiO2 Sodium Potassium Chloride Carbon Dioxide Anion Gap BUN Creatinine Est GFR ( Amer) Est GFR (Non-Af Amer) POC Glucose (mg/dL) 475 H* Random Glucose Calcium Total Bilirubin AST ALT Alkaline Phosphatase Troponin I NT-Pro-B Natriuret Pep Total Protein Albumin Globulin Albumin/Globulin Ratio Assessment/Plan - Assessment and Plan (Free Text) Assessment: 56 year old male with SAH. CTA negative. Differential dx includes aneurysmal/ avm rupture versus permiicecephalic bleed. Plan: 1- will see patient in am. 2-will need diagnostic angiography, plan will be to transfer patient to [facility] [place]. - Date & Time Date: 08/05/17 Time: 01:31
--- NOTE | 2017-08-05 05:25 | CT ---
EXAM: CT Head Without Intravenous Contrast CLINICAL HISTORY: 56 years old, male; Pain; Other: Follow up subaracnoid hemorrhage; Patient HX: 08-04-17 TECHNIQUE: Axial computed tomography images of the head/brain without intravenous contrast. All CT scans at this facility use one or more dose reduction techniques, viz.: automated exposure control; ma/kV adjustment per patient size (including targeted exams where dose is matched to indication; i.e. head); or iterative reconstruction technique. 134 images are submitted. COMPARISON: CT - HEAD W/O CONTRAST 2017-08-04 17:38 FINDINGS: Brain: There is bilateral tentorial subdural hemorrhage and subarachnoid hemorrhage in the pre-pontine and interpeduncular cisterns. There is interval redistribution of the hemorrhage. Cerebral and cerebellar volume loss. Patchy hypodensity is seen in the periventricular and subcortical white matter. Ventricles: There is interval layering intraventricular hemorrhage involving the posterior horn of lateral ventricles. Bones/joints: Unremarkable. No acute fracture. Soft tissues: Posterior scalp soft tissue swelling near the vertex. Vasculature: Vascular calcifications. Sinuses: Patchy sinus disease. Mastoid air cells: Unremarkable. No mastoid effusion. Orbits: Globe and lens are intact. IMPRESSION: 1. 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 Correlation with neurosurgical expectation/history clinical evaluation and further workup or followup as recommended by patient's clinical data.
[2017-08-05 06:08] LABS: SQUAMOUS EPITHIAL 2 /hpf (0-5); URINE AMORPHOUS SEDIMENT OCC /ul (<OCC); URINE BACTERIA RARE (<OCC); URINE BILIRUBIN NEGATIVE (NEGATIVE); URINE BLOOD 1+ (NEGATIVE); URINE CLARITY Hazy (Clear); URINE COLOR Yellow (YELLOW); URINE GLUCOSE (UA) 3+ mg/dL (Normal); URINE LEUKOCYTE ESTERASE NEG Leu/uL (Negative); URINE PROTEIN 2+ mg/dL (NEGATIVE); URINE UROBILINOGEN NORMAL mg/dL (0.2-1.0)
[2017-08-05 06:09] LABS: HEMOGLOBIN 11.3 g/dL (12.0-18.0); MEAN CELL VOLUME 88.3 fL (80.0-94.0); MEAN CORPUSCULAR HGB CONC 35.1 g/dL (33.0-37.0); MEAN PLATELET VOLUME 9.4 fL (7.2-11.7); RBC 3.65 Mil/uL (4.40-5.90); RED CELL DISTRIBUTION WIDTH 14.2 % (11.5-14.5); WHITE BLOOD COUNT 10.1 K/uL (4.8-10.8)
[2017-08-05 06:34] LABS: TROPONIN I 0.117 ng/mL (0.00-0.120)
[2017-08-05 06:36] LABS: ALB/GLOB RATIO 0.9 (1.0-2.1); ALBUMIN 3.2 g/dL (3.5-5.0); CALCIUM 8.6 mg/dl (8.6-10.4)
--- NOTE | 2017-08-05 08:21 | RAD ---
Chest x-ray single frontal view History: Shortness of breath. Comparison: 05/24/2015 Findings: Confluent consolidative changes noted at the right lung base suggestive for infiltrate and or atelectasis. Moderate venous congestion. Right hilar prominence. Mild cardiomegaly. Impression: Confluent consolidative changes noted at the right lung base suggestive for infiltrate and or atelectasis. Moderate venous congestion. Right hilar prominence. Mild cardiomegaly.
--- NOTE | 2017-08-05 08:32 | RAD ---
Chest x-ray single frontal view History: Pulmonary congestion. Comparison: 08/04/2017 Findings: Prominent patchy consolidative opacifications seen within the right mid to lower lung zone. Diffuse increased interstitial lung markings which may represent edema and or infiltrate. Right hilar prominence. Cardiomegaly. Degenerative changes in the spine. Impression: Prominent patchy consolidative opacifications seen within the right mid to lower lung zone. Diffuse increased interstitial lung markings which may represent edema and or infiltrate. Right hilar prominence. Cardiomegaly.
[2017-08-05] MEDS ORDERED: Acetylcysteine 20% Inhal Soln (4ml) PO SCH (09:00)
[2017-08-05] MEDS ORDERED: Potassium Chloride 20 mEq/15 ml LIQ UD PO ONE (09:15)
[2017-08-05] MEDS ORDERED: (Novolog) Insulin Aspart, Recombinant 100 u/ml 10 ml vial SC SCH (09:15)
[2017-08-05] MEDS: (Novolog) Insulin Aspart, Recombinant 100 u/ml 10 ml vial SC SCH ×3 (10:10→21:00)
--- NOTE | 2017-08-05 10:20 | CT ---
PROCEDURE: CT Angiography of the Brain. HISTORY: Subarachnoid hemorrhage COMPARISON: None available. TECHNIQUE: CT angiography of the intracranial arteries was performed. Coronal and sagittal maximum intensity projectionreformatted images were generated. This CT exam was performed using one or more of the following dose reduction techniques: Automated exposure control, adjustment of the mA and/or kV according to patient size, and/or use of iterative reconstruction technique. FINDINGS: INTERNAL CEREBRAL ARTERIES: There is normal flow and moderate atherosclerotic calcifications in the cavernous carotid segments. The skull base, petrous, cavernous and supraclinoid segments are bilaterally widely patent. ANTERIOR CEREBRAL ARTERIES: Normal flow. A1 and A2 segments are widely patent. Smaller distal branches unremarkable, as visualized. MIDDLE CEREBRAL ARTERIES: Normal flow. M1 and M2 segments are widely patent. Perisylvian branches grossly symmetric. POSTERIOR CIRCULATION: Basilar Artery: Normal flow in caliber. Distal Vertebral Arteries: Normal flow in caliber. Posterior Cerebral Arteries: Normal flow in caliber. Posterior Inferior Cerebellar Arteries: Normal flow in caliber. ANEURYSM/ VASCULAR MALFORMATIONS: None. OTHER FINDINGS: None. IMPRESSION: No evidence for saccular aneurysm. Moderate atherosclerotic vascular calcifications in the cavernous segments of the internal carotid arteries. No evidence for occlusion or intraluminal thrombus. A preliminary report was provided by [employer].
--- NOTE | 2017-08-05 10:44 | CP.CCUPN ---
<Jerod Flood - Last Filed: 08/05/17 10:39> CCU Subjective - Physician Review Subjective (Free Text): Patient seen and examined at bedside. No overnight events reported. Patient still complains of blurry vision (Improved), and headache (Improve). Patient denies any fever, chills, SOB, abdominal pain, nausea, vomiting, change sin bowel habits or urinary symptoms. CCU Objective - Vital Signs / Intake & Output Vital Signs (Last 4 hours): Vital Signs Pulse Resp BP Pulse Ox 08/05/17 10:09 147/71 08/05/17 07:02 91 H 19 149/73 99 Intake and Output (Last 8hrs): Intake & Output 08/04/17 08/05/17 08/05/17 22:59 06:59 14:59 Intake Total 200 1830 140 Output Total 2445 1150 Balance -2245 680 140 Weight 197 lb Intake: IV 100 750 Intake, IV Amount 100 1080 140 Left Antecubital 100 800 100 Right Antecubital 280 40 Output: Urine 2445 1150 Urethral (Cross) 150 1150 - Physical Exam Head: Positive for: Atraumatic, Normocephalic Pupils: Positive for: PERRL Extroacular Muscles: Positive for: EOMI Conjunctiva: Positive for: Normal Mouth: Positive for: Moist Mucous Membranes Respiratory/Chest: Positive for: Clear to Auscultation Cardiovascular: Positive for: Regular Rate and Rhythm, Normal S1, S2 Abdomen: Positive for: Normal Bowel Sounds. Negative for: Tenderness Upper Extremity: Positive for: Normal Inspection Lower Extremity: Positive for: Normal Inspection Neurological: Positive for: GCS=15, CN II-XII Intact, Motor Func Grossly Intact , Normal Sensory Function Psychiatric: Positive for: Alert, Oriented x 3, Normal Affect, Normal Mood - Medications Active Medications: Active Medications Generic Name Dose Route Start Last Admin Trade Name Freq PRN Reason Stop Dose Admin Acetylcysteine 8 ml 08/05/17 09:00 Acetylcysteine 20% PO 08/06/17 21:01 Q12H JESSE Famotidine 20 mg 08/05/17 10:00 Pepcid IVP DAILY JESSE Furosemide 40 mg 08/05/17 10:00 08/05/17 10:09 Lasix PO 40 mg DAILY JESSE Administration Hydralazine HCl 10 mg 08/04/17 19:15 08/04/17 19:04 Apresoline IVP 10 mg STAT JESSE Administration Hydralazine HCl 10 mg 08/05/17 10:00 Apresoline PO Q8H JESSE Nicardipine HCl 25 mg/ Sodium 250 mls @ 50 mls/hr 08/04/17 18:15 08/05/17 06: 05 Chloride IV 10 mg/hr .Q5H JESSE 100 mls/hr Protocol Administration 5 MG/HR Levetiracetam 500 mg/ Dextrose 105 mls @ 420 mls/hr 08/05/17 10:00 IVPB Q12H JESSE Insulin Aspart 0 unit 08/05/17 09:30 08/05/17 10:10 Novolog SC 4 unit Q4 JESSE Administration Protocol Insulin Detemir 20 unit 08/05/17 09:12 Levemir SC HS JESSE Isosorbide Dinitrate 10 mg 08/05/17 10:00 Isordil PO BID JESSE Labetalol HCl 200 mg 08/05/17 09:15 Trandate PO Q8 JESSE Nitroglycerin 0.4 mg 08/04/17 19:03 08/04/17 18:50 Nitrostat Sl Tab SL 0.4 mg Q5M PRN Administration Shortness of Breath - Patient Studies Lab Studies: Lab Studies 08/05/17 08/05/17 08/05/17 Range/Units 09:22 06:13 06:00 WBC 10.1 (4.8-10.8) K/uL RBC 3.65 L (4.40-5.90) Mil/uL Hgb 11.3 L (12.0-18.0) g/dL Hct 32.2 L (35.0-51.0) % MCV 88.3 (80.0-94.0) fL MCH 31.0 (27.0-31.0) pg MCHC 35.1 (33.0-37.0) g/dL RDW 14.2 (11.5-14.5) % Plt Count 224 (130-400) K/uL MPV 9.4 (7.2-11.7) fL Neut % (Auto) (50.0-75.0) % Lymph % (Auto) (20.0-40.0) % [place] % (Auto) (0.0-10.0) % Eos % (Auto) (0.0-4.0) % Baso % (Auto) (0.0-2.0) % Neut # (Auto) (1.8-7.0) K/uL Lymph # (Auto) (1.0-4.3) K/uL [place] # (Auto) (0.0-0.8) K/uL Eos # (Auto) (0.0-0.7) K/uL Baso # (Auto) (0.0-0.2) K/uL PT (9.7-12.2) SECONDS INR APTT (21-34) SECONDS Puncture Site pCO2 (35-45) mm/Hg pO2 (80-100) mm/Hg HCO3 (21-28) mmol/L ABG pH (7.35-7.45) ABG Total CO2 (22-28) mmol/L ABG O2 Saturation (95-98) % ABG Base Excess (-2.0-3.0) mmol/L ABG Hemoglobin (11.7-17.4) g/dL ABG Carboxyhemoglobin (0.5-1.5) % POC ABG HHb (Measured) (0.0-5.0) % ABG Methemoglobin (0.0-3.0) % Davon Test A-a O2 Difference mm/Hg Respiratory Index Hgb O2 Saturation (95.0-98.0) % Liter Flow FiO2 % Sodium (132-148) mmol/L Potassium (3.6-5.2) mmol/L Chloride (98-107) mmol/L Carbon Dioxide (22-30) mmol/L Anion Gap (10-20) BUN (9-20) mg/dL Creatinine (0.8-1.5) mg/dL Est GFR ( Amer) Est GFR (Non-Af Amer) POC Glucose (mg/dL) 254 H 343 H (65-110) mg/dL Random Glucose (75-110) mg/dL Calcium (8.6-10.4) mg/dl Phosphorus (2.5-4.5) mg/dL Magnesium (1.6-2.3) mg/dL Total Bilirubin (0.2-1.3) mg/dL AST (17-59) U/L ALT (21-72) U/L Alkaline Phosphatase (38-126) U/L Troponin I (0.00-0.120) ng/mL NT-Pro-B Natriuret Pep (0-900) pg/mL Total Protein (6.3-8.3) g/dL Albumin (3.5-5.0) g/dL Globulin (2.2-3.9) gm/dL Albumin/Globulin Ratio (1.0-2.1) Triglycerides (0-149) mg/dL Cholesterol (0-199) mg/dL LDL Cholesterol Direct (0-129) mg/dL HDL Cholesterol (30-70) mg/dL Urine Color (YELLOW) Urine Clarity (Clear) Urine pH (5.0-8.0) Ur Specific Hagerman (1.003-1.030) Urine Protein (NEGATIVE) mg/dL Urine Glucose (UA) (Normal) mg/dL Urine Ketones (NEGATIVE) mg/dL Urine Blood (NEGATIVE) Urine Nitrate (NEGATIVE) Urine Bilirubin (NEGATIVE) Urine Urobilinogen (0.2-1.0) mg/dL Ur Leukocyte Esterase (Negative) Lb/uL Urine WBC (Auto) (0-5) /hpf Urine RBC (Auto) (0-3) /hpf Ur Squamous Epith Cells (0-5) /hpf Amorphous Sediment (<OCC) /ul Urine Bacteria (<OCC) 08/05/17 08/05/17 08/04/17 Range/Units 06:00 06:00 23:45 WBC (4.8-10.8) K/uL RBC (4.40-5.90) Mil/uL Hgb (12.0-18.0) g/dL Hct (35.0-51.0) % MCV (80.0-94.0) fL MCH (27.0-31.0) pg MCHC (33.0-37.0) g/dL RDW (11.5-14.5) % Plt Count (130-400) K/uL MPV (7.2-11.7) fL Neut % (Auto) (50.0-75.0) % Lymph % (Auto) (20.0-40.0) % [place] % (Auto) (0.0-10.0) % Eos % (Auto) (0.0-4.0) % Baso % (Auto) (0.0-2.0) % Neut # (Auto) (1.8-7.0) K/uL Lymph # (Auto) (1.0-4.3) K/uL [place] # (Auto) (0.0-0.8) K/uL Eos # (Auto) (0.0-0.7) K/uL Baso # (Auto) (0.0-0.2) K/uL PT (9.7-12.2) SECONDS INR APTT (21-34) SECONDS Puncture Site pCO2 (35-45) mm/Hg pO2 (80-100) mm/Hg HCO3 (21-28) mmol/L ABG pH (7.35-7.45) ABG Total CO2 (22-28) mmol/L ABG O2 Saturation (95-98) % ABG Base Excess (-2.0-3.0) mmol/L ABG Hemoglobin (11.7-17.4) g/dL ABG Carboxyhemoglobin (0.5-1.5) % POC ABG HHb (Measured) (0.0-5.0) % ABG Methemoglobin (0.0-3.0) % Davon Test A-a O2 Difference mm/Hg Respiratory Index Hgb O2 Saturation (95.0-98.0) % Liter Flow FiO2 % Sodium 141 (132-148) mmol/L Potassium 3.5 L (3.6-5.2) mmol/L Chloride 105 (98-107) mmol/L Carbon Dioxide 22 (22-30) mmol/L Anion Gap 18 (10-20) BUN 30 H (9-20) mg/dL Creatinine 1.5 (0.8-1.5) mg/dL Est GFR ( Amer) 58 Est GFR (Non-Af Amer) 48 POC Glucose (mg/dL) 475 H* (65-110) mg/dL Random Glucose 333 H (75-110) mg/dL Calcium 8.6 (8.6-10.4) mg/dl Phosphorus 3.9 (2.5-4.5) mg/dL Magnesium 1.9 (1.6-2.3) mg/dL Total Bilirubin 0.6 (0.2-1.3) mg/dL AST 29 (17-59) U/L ALT 30 (21-72) U/L Alkaline Phosphatase 116 (38-126) U/L Troponin I 0.1170 (0.00-0.120) ng/mL NT-Pro-B Natriuret Pep (0-900) pg/mL Total Protein 6.7 (6.3-8.3) g/dL Albumin 3.2 L (3.5-5.0) g/dL Globulin 3.5 (2.2-3.9) gm/dL Albumin/Globulin Ratio 0.9 L (1.0-2.1) Triglycerides 65 D (0-149) mg/dL Cholesterol 253 H (0-199) mg/dL LDL Cholesterol Direct 154 H (0-129) mg/dL HDL Cholesterol 82 H (30-70) mg/dL Urine Color Yellow (YELLOW) Urine Clarity Hazy (Clear) Urine pH 5.0 (5.0-8.0) Ur Specific Hagerman 1.021 (1.003-1.030) Urine Protein 2+ H (NEGATIVE) mg/dL Urine Glucose (UA) 3+ H (Normal) mg/dL Urine Ketones 1+ H (NEGATIVE) mg/dL Urine Blood 1+ H (NEGATIVE) Urine Nitrate Negative (NEGATIVE) Urine Bilirubin Negative (NEGATIVE) Urine Urobilinogen Normal (0.2-1.0) mg/dL Ur Leukocyte Esterase Neg (Negative) Lb/uL Urine WBC (Auto) 2 (0-5) /hpf Urine RBC (Auto) 7 H (0-3) /hpf Ur Squamous Epith Cells 2 (0-5) /hpf Amorphous Sediment Occ H (<OCC) /ul Urine Bacteria Rare (<OCC) 08/04/17 08/04/17 08/04/17 Range/Units 21:14 21:06 20:32 WBC (4.8-10.8) K/uL RBC (4.40-5.90) Mil/uL Hgb (12.0-18.0) g/dL Hct (35.0-51.0) % MCV (80.0-94.0) fL MCH (27.0-31.0) pg MCHC (33.0-37.0) g/dL RDW (11.5-14.5) % Plt Count (130-400) K/uL MPV (7.2-11.7) fL Neut % (Auto) (50.0-75.0) % Lymph % (Auto) (20.0-40.0) % [place] % (Auto) (0.0-10.0) % Eos % (Auto) (0.0-4.0) % Baso % (Auto) (0.0-2.0) % Neut # (Auto) (1.8-7.0) K/uL Lymph # (Auto) (1.0-4.3) K/uL [place] # (Auto) (0.0-0.8) K/uL Eos # (Auto) (0.0-0.7) K/uL Baso # (Auto) (0.0-0.2) K/uL PT 11.7 (9.7-12.2) SECONDS INR 1.1 APTT 34 (21-34) SECONDS Puncture Site Rba pCO2 31 L (35-45) mm/Hg pO2 262 H (80-100) mm/Hg HCO3 21.3 (21-28) mmol/L ABG pH 7.40 (7.35-7.45) ABG Total CO2 20.2 L (22-28) mmol/L ABG O2 Saturation 100.1 H (95-98) % ABG Base Excess -4.6 L (-2.0-3.0) mmol/L ABG Hemoglobin 12.3 (11.7-17.4) g/dL ABG Carboxyhemoglobin 1.8 H (0.5-1.5) % POC ABG HHb (Measured) -0.1 L (0.0-5.0) % ABG Methemoglobin 1.3 (0.0-3.0) % Davon Test Pos A-a O2 Difference 412.0 mm/Hg Respiratory Index 1.6 Hgb O2 Saturation 97.1 (95.0-98.0) % Liter Flow 15.0 FiO2 100.0 % Sodium (132-148) mmol/L Potassium (3.6-5.2) mmol/L Chloride (98-107) mmol/L Carbon Dioxide (22-30) mmol/L Anion Gap (10-20) BUN (9-20) mg/dL Creatinine (0.8-1.5) mg/dL Est GFR ( Amer) Est GFR (Non-Af Amer) POC Glucose (mg/dL) 354 H (65-110) mg/dL Random Glucose (75-110) mg/dL Calcium (8.6-10.4) mg/dl Phosphorus (2.5-4.5) mg/dL Magnesium (1.6-2.3) mg/dL Total Bilirubin (0.2-1.3) mg/dL AST (17-59) U/L ALT (21-72) U/L Alkaline Phosphatase (38-126) U/L Troponin I (0.00-0.120) ng/mL NT-Pro-B Natriuret Pep (0-900) pg/mL Total Protein (6.3-8.3) g/dL Albumin (3.5-5.0) g/dL Globulin (2.2-3.9) gm/dL Albumin/Globulin Ratio (1.0-2.1) Triglycerides (0-149) mg/dL Cholesterol (0-199) mg/dL LDL Cholesterol Direct (0-129) mg/dL HDL Cholesterol (30-70) mg/dL Urine Color (YELLOW) Urine Clarity (Clear) Urine pH (5.0-8.0) Ur Specific Hagerman (1.003-1.030) Urine Protein (NEGATIVE) mg/dL Urine Glucose (UA) (Normal) mg/dL Urine Ketones (NEGATIVE) mg/dL Urine Blood (NEGATIVE) Urine Nitrate (NEGATIVE) Urine Bilirubin (NEGATIVE) Urine Urobilinogen (0.2-1.0) mg/dL Ur Leukocyte Esterase (Negative) Lb/uL Urine WBC (Auto) (0-5) /hpf Urine RBC (Auto) (0-3) /hpf Ur Squamous Epith Cells (0-5) /hpf Amorphous Sediment (<OCC) /ul Urine Bacteria (<OCC) 08/04/17 08/04/17 08/04/17 Range/Units 19:06 18:33 17:27 WBC (4.8-10.8) K/uL RBC (4.40-5.90) Mil/uL Hgb (12.0-18.0) g/dL Hct (35.0-51.0) % MCV (80.0-94.0) fL MCH (27.0-31.0) pg MCHC (33.0-37.0) g/dL RDW (11.5-14.5) % Plt Count (130-400) K/uL MPV (7.2-11.7) fL Neut % (Auto) (50.0-75.0) % Lymph % (Auto) (20.0-40.0) % [place] % (Auto) (0.0-10.0) % Eos % (Auto) (0.0-4.0) % Baso % (Auto) (0.0-2.0) % Neut # (Auto) (1.8-7.0) K/uL Lymph # (Auto) (1.0-4.3) K/uL [place] # (Auto) (0.0-0.8) K/uL Eos # (Auto) (0.0-0.7) K/uL Baso # (Auto) (0.0-0.2) K/uL PT (9.7-12.2) SECONDS INR APTT (21-34) SECONDS Puncture Site pCO2 (35-45) mm/Hg pO2 (80-100) mm/Hg HCO3 (21-28) mmol/L ABG pH (7.35-7.45) ABG Total CO2 (22-28) mmol/L ABG O2 Saturation (95-98) % ABG Base Excess (-2.0-3.0) mmol/L ABG Hemoglobin (11.7-17.4) g/dL ABG Carboxyhemoglobin (0.5-1.5) % POC ABG HHb (Measured) (0.0-5.0) % ABG Methemoglobin (0.0-3.0) % Davon Test A-a O2 Difference mm/Hg Respiratory Index Hgb O2 Saturation (95.0-98.0) % Liter Flow FiO2 % Sodium (132-148) mmol/L Potassium (3.6-5.2) mmol/L Chloride (98-107) mmol/L Carbon Dioxide (22-30) mmol/L Anion Gap (10-20) BUN (9-20) mg/dL Creatinine (0.8-1.5) mg/dL Est GFR ( Amer) Est GFR (Non-Af Amer) POC Glucose (mg/dL) 349 H 419 H* (65-110) mg/dL Random Glucose (75-110) mg/dL Calcium (8.6-10.4) mg/dl Phosphorus (2.5-4.5) mg/dL Magnesium (1.6-2.3) mg/dL Total Bilirubin (0.2-1.3) mg/dL AST (17-59) U/L ALT (21-72) U/L Alkaline Phosphatase (38-126) U/L Troponin I 0.0770 (0.00-0.120) ng/mL NT-Pro-B Natriuret Pep 8630 H (0-900) pg/mL Total Protein (6.3-8.3) g/dL Albumin (3.5-5.0) g/dL Globulin (2.2-3.9) gm/dL Albumin/Globulin Ratio (1.0-2.1) Triglycerides (0-149) mg/dL Cholesterol (0-199) mg/dL LDL Cholesterol Direct (0-129) mg/dL HDL Cholesterol (30-70) mg/dL Urine Color (YELLOW) Urine Clarity (Clear) Urine pH (5.0-8.0) Ur Specific Hagerman (1.003-1.030) Urine Protein (NEGATIVE) mg/dL Urine Glucose (UA) (Normal) mg/dL Urine Ketones (NEGATIVE) mg/dL Urine Blood (NEGATIVE) Urine Nitrate (NEGATIVE) Urine Bilirubin (NEGATIVE) Urine Urobilinogen (0.2-1.0) mg/dL Ur Leukocyte Esterase (Negative) Lb/uL Urine WBC (Auto) (0-5) /hpf Urine RBC (Auto) (0-3) /hpf Ur Squamous Epith Cells (0-5) /hpf Amorphous Sediment (<OCC) /ul Urine Bacteria (<OCC) 08/04/17 08/04/17 08/04/17 Range/Units 17:25 17:20 17:20 WBC 10.6 D (4.8-10.8) K/uL RBC 4.05 L (4.40-5.90) Mil/uL Hgb 12.5 (12.0-18.0) g/dL Hct 35.5 (35.0-51.0) % MCV 87.8 D (80.0-94.0) fL MCH 30.8 (27.0-31.0) pg MCHC 35.1 (33.0-37.0) g/dL RDW 13.6 (11.5-14.5) % Plt Count 239 (130-400) K/uL MPV 9.0 (7.2-11.7) fL Neut % (Auto) 76.7 H (50.0-75.0) % Lymph % (Auto) 16.9 L (20.0-40.0) % [place] % (Auto) 5.1 (0.0-10.0) % Eos % (Auto) 0.7 (0.0-4.0) % Baso % (Auto) 0.6 (0.0-2.0) % Neut # (Auto) 8.1 H (1.8-7.0) K/uL Lymph # (Auto) 1.8 (1.0-4.3) K/uL [place] # (Auto) 0.5 (0.0-0.8) K/uL Eos # (Auto) 0.1 (0.0-0.7) K/uL Baso # (Auto) 0.1 (0.0-0.2) K/uL PT (9.7-12.2) SECONDS INR APTT (21-34) SECONDS Puncture Site pCO2 (35-45) mm/Hg pO2 (80-100) mm/Hg HCO3 (21-28) mmol/L ABG pH (7.35-7.45) ABG Total CO2 (22-28) mmol/L ABG O2 Saturation (95-98) % ABG Base Excess (-2.0-3.0) mmol/L ABG Hemoglobin (11.7-17.4) g/dL ABG Carboxyhemoglobin (0.5-1.5) % POC ABG HHb (Measured) (0.0-5.0) % ABG Methemoglobin (0.0-3.0) % Davon Test A-a O2 Difference mm/Hg Respiratory Index Hgb O2 Saturation (95.0-98.0) % Liter Flow FiO2 % Sodium 137 (132-148) mmol/L Potassium 3.8 (3.6-5.2) mmol/L Chloride 104 (98-107) mmol/L Carbon Dioxide 20 L (22-30) mmol/L Anion Gap 18 (10-20) BUN 26 H (9-20) mg/dL Creatinine 1.5 (0.8-1.5) mg/dL Est GFR ( Amer) 58 Est GFR (Non-Af Amer) 48 POC Glucose (mg/dL) 413 H* (65-110) mg/dL Random Glucose 455 H* D (75-110) mg/dL Calcium 9.1 (8.6-10.4) mg/dl Phosphorus (2.5-4.5) mg/dL Magnesium (1.6-2.3) mg/dL Total Bilirubin 0.6 (0.2-1.3) mg/dL AST 65 H D (17-59) U/L ALT 48 (21-72) U/L Alkaline Phosphatase 169 H D (38-126) U/L Troponin I (0.00-0.120) ng/mL NT-Pro-B Natriuret Pep (0-900) pg/mL Total Protein 7.4 (6.3-8.3) g/dL Albumin 3.7 (3.5-5.0) g/dL Globulin 3.7 (2.2-3.9) gm/dL Albumin/Globulin Ratio 1.0 (1.0-2.1) Triglycerides (0-149) mg/dL Cholesterol (0-199) mg/dL LDL Cholesterol Direct (0-129) mg/dL HDL Cholesterol (30-70) mg/dL Urine Color (YELLOW) Urine Clarity (Clear) Urine pH (5.0-8.0) Ur Specific Hagerman (1.003-1.030) Urine Protein (NEGATIVE) mg/dL Urine Glucose (UA) (Normal) mg/dL Urine Ketones (NEGATIVE) mg/dL Urine Blood (NEGATIVE) Urine Nitrate (NEGATIVE) Urine Bilirubin (NEGATIVE) Urine Urobilinogen (0.2-1.0) mg/dL Ur Leukocyte Esterase (Negative) Lb/uL Urine WBC (Auto) (0-5) /hpf Urine RBC (Auto) (0-3) /hpf Ur Squamous Epith Cells (0-5) /hpf Amorphous Sediment (<OCC) /ul Urine Bacteria (<OCC) Laboratory Results - last 24 hr 08/04/17 08/04/17 08/04/17 17:20 17:20 17:25 WBC 10.6 D RBC 4.05 L Hgb 12.5 Hct 35.5 MCV 87.8 D MCH 30.8 MCHC 35.1 RDW 13.6 Plt Count 239 MPV 9.0 Neut % (Auto) 76.7 H Lymph % (Auto) 16.9 L [place] % (Auto) 5.1 Eos % (Auto) 0.7 Baso % (Auto) 0.6 Neut # (Auto) 8.1 H Lymph # (Auto) 1.8 [place] # (Auto) 0.5 Eos # (Auto) 0.1 Baso # (Auto) 0.1 PT INR APTT Puncture Site pCO2 pO2 HCO3 ABG pH ABG Total CO2 ABG O2 Saturation ABG Base Excess ABG Hemoglobin ABG Carboxyhemoglobin POC ABG HHb (Measured) ABG Methemoglobin Davon Test A-a O2 Difference Respiratory Index Hgb O2 Saturation Liter Flow FiO2 Sodium 137 Potassium 3.8 Chloride 104 Carbon Dioxide 20 L Anion Gap 18 BUN 26 H Creatinine 1.5 Est GFR ( Amer) 58 Est GFR (Non-Af Amer) 48 POC Glucose (mg/dL) 413 H* Random Glucose 455 H* D Calcium 9.1 Phosphorus Magnesium Total Bilirubin 0.6 AST 65 H D ALT 48 Alkaline Phosphatase 169 H D Troponin I NT-Pro-B Natriuret Pep Total Protein 7.4 Albumin 3.7 Globulin 3.7 Albumin/Globulin Ratio 1.0 Triglycerides Cholesterol LDL Cholesterol Direct HDL Cholesterol Urine Color Urine Clarity Urine pH Ur Specific Hagerman Urine Protein Urine Glucose (UA) Urine Ketones Urine Blood Urine Nitrate Urine Bilirubin Urine Urobilinogen Ur Leukocyte Esterase Urine WBC (Auto) Urine RBC (Auto) Ur Squamous Epith Cells Amorphous Sediment Urine Bacteria 08/04/17 08/04/17 08/04/17 17:27 18:33 19:06 WBC RBC Hgb Hct MCV MCH MCHC RDW Plt Count MPV Neut % (Auto) Lymph % (Auto) [place] % (Auto) Eos % (Auto) Baso % (Auto) Neut # (Auto) Lymph # (Auto) [place] # (Auto) Eos # (Auto) Baso # (Auto) PT INR APTT Puncture Site pCO2 pO2 HCO3 ABG pH ABG Total CO2 ABG O2 Saturation ABG Base Excess ABG Hemoglobin ABG Carboxyhemoglobin POC ABG HHb (Measured) ABG Methemoglobin Davon Test A-a O2 Difference Respiratory Index Hgb O2 Saturation Liter Flow FiO2 Sodium Potassium Chloride Carbon Dioxide Anion Gap BUN Creatinine Est GFR ( Amer) Est GFR (Non-Af Amer) POC Glucose (mg/dL) 419 H* 349 H Random Glucose Calcium Phosphorus Magnesium Total Bilirubin AST ALT Alkaline Phosphatase Troponin I 0.0770 NT-Pro-B Natriuret Pep 8630 H Total Protein Albumin Globulin Albumin/Globulin Ratio Triglycerides Cholesterol LDL Cholesterol Direct HDL Cholesterol Urine Color Urine Clarity Urine pH Ur Specific Hagerman Urine Protein Urine Glucose (UA) Urine Ketones Urine Blood Urine Nitrate Urine Bilirubin Urine Urobilinogen Ur Leukocyte Esterase Urine WBC (Auto) Urine RBC (Auto) Ur Squamous Epith Cells Amorphous Sediment Urine Bacteria 08/04/17 08/04/17 08/04/17 20:32 21:06 21:14 WBC RBC Hgb Hct MCV MCH MCHC RDW Plt Count MPV Neut % (Auto) Lymph % (Auto) [place] % (Auto) Eos % (Auto) Baso % (Auto) Neut # (Auto) Lymph # (Auto) [place] # (Auto) Eos # (Auto) Baso # (Auto) PT 11.7 INR 1.1 APTT 34 Puncture Site Rba pCO2 31 L pO2 262 H HCO3 21.3 ABG pH 7.40 ABG Total CO2 20.2 L ABG O2 Saturation 100.1 H ABG Base Excess -4.6 L ABG Hemoglobin 12.3 ABG Carboxyhemoglobin 1.8 H POC ABG HHb (Measured) -0.1 L ABG Methemoglobin 1.3 Davon Test Pos A-a O2 Difference 412.0 Respiratory Index 1.6 Hgb O2 Saturation 97.1 Liter Flow 15.0 FiO2 100.0 Sodium Potassium Chloride Carbon Dioxide Anion Gap BUN Creatinine Est GFR ( Amer) Est GFR (Non-Af Amer) POC Glucose (mg/dL) 354 H Random Glucose Calcium Phosphorus Magnesium Total Bilirubin AST ALT Alkaline Phosphatase Troponin I NT-Pro-B Natriuret Pep Total Protein Albumin Globulin Albumin/Globulin Ratio Triglycerides Cholesterol LDL Cholesterol Direct HDL Cholesterol Urine Color Urine Clarity Urine pH Ur Specific Hagerman Urine Protein Urine Glucose (UA) Urine Ketones Urine Blood Urine Nitrate Urine Bilirubin Urine Urobilinogen Ur Leukocyte Esterase Urine WBC (Auto) Urine RBC (Auto) Ur Squamous Epith Cells Amorphous Sediment Urine Bacteria 08/04/17 08/05/17 08/05/17 23:45 06:00 06:00 WBC RBC Hgb Hct MCV MCH MCHC RDW Plt Count MPV Neut % (Auto) Lymph % (Auto) [place] % (Auto) Eos % (Auto) Baso % (Auto) Neut # (Auto) Lymph # (Auto) [place] # (Auto) Eos # (Auto) Baso # (Auto) PT INR APTT Puncture Site pCO2 pO2 HCO3 ABG pH ABG Total CO2 ABG O2 Saturation ABG Base Excess ABG Hemoglobin ABG Carboxyhemoglobin POC ABG HHb (Measured) ABG Methemoglobin Davon Test A-a O2 Difference Respiratory Index Hgb O2 Saturation Liter Flow FiO2 Sodium 141 Potassium 3.5 L Chloride 105 Carbon Dioxide 22 Anion Gap 18 BUN 30 H Creatinine 1.5 Est GFR ( Amer) 58 Est GFR (Non-Af Amer) 48 POC Glucose (mg/dL) 475 H* Random Glucose 333 H Calcium 8.6 Phosphorus 3.9 Magnesium 1.9 Total Bilirubin 0.6 AST 29 ALT 30 Alkaline Phosphatase 116 Troponin I 0.1170 NT-Pro-B Natriuret Pep Total Protein 6.7 Albumin 3.2 L Globulin 3.5 Albumin/Globulin Ratio 0.9 L Triglycerides 65 D Cholesterol 253 H LDL Cholesterol Direct 154 H HDL Cholesterol 82 H Urine Color Yellow Urine Clarity Hazy Urine pH 5.0 Ur Specific Hagerman 1.021 Urine Protein 2+ H Urine Glucose (UA) 3+ H Urine Ketones 1+ H Urine Blood 1+ H Urine Nitrate Negative Urine Bilirubin Negative Urine Urobilinogen Normal Ur Leukocyte Esterase Neg Urine WBC (Auto) 2 Urine RBC (Auto) 7 H Ur Squamous Epith Cells 2 Amorphous Sediment Occ H Urine Bacteria Rare 08/05/17 08/05/17 08/05/17 06:00 06:13 09:22 WBC 10.1 RBC 3.65 L Hgb 11.3 L Hct 32.2 L MCV 88.3 MCH 31.0 MCHC 35.1 RDW 14.2 Plt Count 224 MPV 9.4 Neut % (Auto) Lymph % (Auto) [place] % (Auto) Eos % (Auto) Baso % (Auto) Neut # (Auto) Lymph # (Auto) [place] # (Auto) Eos # (Auto) Baso # (Auto) PT INR APTT Puncture Site pCO2 pO2 HCO3 ABG pH ABG Total CO2 ABG O2 Saturation ABG Base Excess ABG Hemoglobin ABG Carboxyhemoglobin POC ABG HHb (Measured) ABG Methemoglobin Davon Test A-a O2 Difference Respiratory Index Hgb O2 Saturation Liter Flow FiO2 Sodium Potassium Chloride Carbon Dioxide Anion Gap BUN Creatinine Est GFR ( Amer) Est GFR (Non-Af Amer) POC Glucose (mg/dL) 343 H 254 H Random Glucose Calcium Phosphorus Magnesium Total Bilirubin AST ALT Alkaline Phosphatase Troponin I NT-Pro-B Natriuret Pep Total Protein Albumin Globulin Albumin/Globulin Ratio Triglycerides Cholesterol LDL Cholesterol Direct HDL Cholesterol Urine Color Urine Clarity Urine pH Ur Specific Hagerman Urine Protein Urine Glucose (UA) Urine Ketones Urine Blood Urine Nitrate Urine Bilirubin Urine Urobilinogen Ur Leukocyte Esterase Urine WBC (Auto) Urine RBC (Auto) Ur Squamous Epith Cells Amorphous Sediment Urine Bacteria EKG/Cardiology Studies: Cardiology / EKG Studies 08/04/17 17:05 ELECTROCARDIOGRAM Stat Comment: Mode Of Transportation: BED Reason For Exam: Headache 08/04/17 17:12 ELECTROCARDIOGRAM Stat Comment: Mode Of Transportation: BED Reason For Exam: Headache 08/04/17 19:16 EKG [ELECTROCARDIOGRAM] Stat Comment: Mode Of Transportation: BED Reason For Exam: repeat 08/05/17 07:30 EKG [ELECTROCARDIOGRAM] Routine Comment: Mode Of Transportation: PORTABLE Reason For Exam: Pulmonary edema Fingerstick Blood Sugar Results: 343 Review of Systems - Review of Systems Review of Systems: As per Subjective Critical Care Progress Note - Nutrition Nutrition: Nutrition Category Date Time Status NPO Diet [DIET] Diets 08/04/17 Dinner Active Assessment/Plan - Assessment and Plan (Free Text) Assessment: 56 years old male with hx of DM II, HTN , CAD and Alcohol dependence, comes with sudden unset of headache associated with dizziness, blurring of the vision , nausea and vomits. In the ED he was found to have Blood Pressure of 248/ 136mmHg. Here he also developed sudden Shortness of breath with rales in both lung bergman.In the ICU he was noted to have weakness of the right lateral rectus muscle. CT of the Head was positive for a large Subarachnoid HEmmorhage. Plan: Neuro GCS: 15 Sedation: None Consult: Neurology, Neurosurgery, IR - Recs Appreciated. A: Subarachnoid Hemmorhage (ANeurysmal/avm rupture vs permiicecephalic bleed) CT Head (Adm): The current study reveals what appears represent a large amount of subarachnoid hemorrhage pre pontine cistern extending posteriorly and inferiorly into the ambient cistern more so on the right side and premedullary cistern and anterior to upper cervicomedullary junction. . Hemorrhage is also seen layering along the tentorium. While this could be secondary to rupture of a telangiectasia the possibility of a basilar tip aneurysm must also be excluded. Followup CTA of the brain is recommended. CTA (Adm): No significant vascular abnormalities are visualized. Stenosis, no aneurysm, no arterial occlusion. ECHO (08/05): PENDING Troponins: NEGATIVE Continue Cardene drip Titrate to maintain SBP 140-150mmHg or a MAP no lower than 110 Neuro checks Q1h Maintain head of bed 45 degrees up Swallow evaluation PT/OT Keppra 500 Q12H for Seizure proph NitroStat SL tab PRN Patient Scheduled for diagnostic angiography here today. If Lesion is found patient will need to be transferred outl. Cardio A: Hypertensive Emergency, Acute on Chronic CHF Exacerbation (EF of 20-25%) Consult: Cardiology - Recs Appreciated Elevated LDL, Total Chol. TG and HDL WNL. Elevated BNP on Admission Continue NiCARdipine Drip Wean as tolerated, Lasix 20mg IVP Daily, Hydralazine 10mg PO Q8H Started Isosorbid Dinitrate 10mg BID Increased Home Carvedilol from 12.5 PO BID to 25 PO BID Restart Vasotec tomorrow morning. Pulm A: Pulm Edema Cont. Lasix 20mg IVP Daily Endo A: DM II HgBA1C - 11.8 Levemir 20 HS, ISS High Renal: A: Azotemia, Hypokalemia Monitor Potassium Replaced Psych: A: Alcohol Dependence Banana Bag. Proph Pepcid/SCD's Patient seen and discussed with Attending Jerod Flood, PGY-1 <Faviola Robles - Last Filed: 08/05/17 14:13> CCU Objective - Vital Signs / Intake & Output Vital Signs (Last 4 hours): Vital Signs Pulse Resp BP Pulse Ox 08/05/17 13:38 73 13 113/68 08/05/17 13:02 71 17 107/68 100 08/05/17 13:00 73 18 99 08/05/17 12:03 78 17 117/67 08/05/17 12:00 78 21 99 08/05/17 11:17 98 H 19 160/79 H 92 L 08/05/17 11:02 89 17 150/73 99 08/05/17 11:00 91 H 11 L 99 Intake and Output (Last 8hrs): Intake & Output 08/04/17 08/05/17 08/05/17 22:59 06:59 14:59 Intake Total 200 1830 1180 Output Total 2445 1150 300 Balance -2245 680 880 Weight 197 lb Intake: IV 100 750 250 Intake, IV Amount 100 1080 780 Left Antecubital 100 800 500 Right Antecubital 280 280 Oral 150 Output: Urine 2445 1150 300 Urethral (Cross) 150 1150 300 - Medications Active Medications: Active Medications Generic Name Dose Route Start Last Admin Trade Name Freq PRN Reason Stop Dose Admin Acetylcysteine 8 ml 08/05/17 10:45 Acetylcysteine 20% PO 08/06/17 22:01 Q12 JESSE Carvedilol 25 mg 08/05/17 18:00 Coreg PO BID [facility] Enalapril Maleate 20 mg 08/06/17 10:00 Vasotec PO DAILY JESSE Famotidine 20 mg 08/05/17 10:00 Pepcid IVP DAILY JESSE Furosemide 40 mg 08/05/17 10:00 08/05/17 10:09 Lasix PO 40 mg DAILY JESSE Administration Hydralazine HCl 10 mg 08/04/17 19:15 08/04/17 19:04 Apresoline IVP 10 mg STAT JESSE Administration Hydralazine HCl 10 mg 08/05/17 10:00 08/05/17 10:40 Apresoline PO 10 mg Q8H JESSE Administration Nicardipine HCl 25 mg/ Sodium 250 mls @ 50 mls/hr 08/04/17 18:15 08/05/17 09: 15 Chloride IV 10 mg/hr .Q5H JSESE 100 mls/hr Protocol Administration 5 MG/HR Levetiracetam 500 mg/ Dextrose 105 mls @ 420 mls/hr 08/05/17 10:00 IVPB Q12H JESSE Insulin Aspart 0 unit 08/05/17 09:30 08/05/17 10:10 Novolog SC 4 unit Q4 JESSE Administration Protocol Insulin Detemir 20 unit 08/05/17 09:12 Levemir SC HS JESSE Isosorbide Dinitrate 10 mg 08/05/17 10:00 08/05/17 10:40 Isordil PO 10 mg BID JESSE Administration Nitroglycerin 0.4 mg 08/04/17 19:03 08/04/17 18:50 Nitrostat Sl Tab SL 0.4 mg Q5M PRN Administration Shortness of Breath - Patient Studies Lab Studies: Lab Studies 08/05/17 08/05/17 08/05/17 Range/Units 11:43 10:52 10:52 WBC (4.8-10.8) K/uL RBC (4.40-5.90) Mil/uL Hgb (12.0-18.0) g/dL Hct (35.0-51.0) % MCV (80.0-94.0) fL MCH (27.0-31.0) pg MCHC (33.0-37.0) g/dL RDW (11.5-14.5) % Plt Count (130-400) K/uL MPV (7.2-11.7) fL Neut % (Auto) (50.0-75.0) % Lymph % (Auto) (20.0-40.0) % [place] % (Auto) (0.0-10.0) % Eos % (Auto) (0.0-4.0) % Baso % (Auto) (0.0-2.0) % Neut # (Auto) (1.8-7.0) K/uL Lymph # (Auto) (1.0-4.3) K/uL [place] # (Auto) (0.0-0.8) K/uL Eos # (Auto) (0.0-0.7) K/uL Baso # (Auto) (0.0-0.2) K/uL PT (9.7-12.2) SECONDS INR APTT (21-34) SECONDS Puncture Site pCO2 (35-45) mm/Hg pO2 (80-100) mm/Hg HCO3 (21-28) mmol/L ABG pH (7.35-7.45) ABG Total CO2 (22-28) mmol/L ABG O2 Saturation (95-98) % ABG Base Excess (-2.0-3.0) mmol/L ABG Hemoglobin (11.7-17.4) g/dL ABG Carboxyhemoglobin (0.5-1.5) % POC ABG HHb (Measured) (0.0-5.0) % ABG Methemoglobin (0.0-3.0) % Davon Test A-a O2 Difference mm/Hg Respiratory Index Hgb O2 Saturation (95.0-98.0) % Liter Flow FiO2 % Sodium (132-148) mmol/L Potassium (3.6-5.2) mmol/L Chloride (98-107) mmol/L Carbon Dioxide (22-30) mmol/L Anion Gap (10-20) BUN (9-20) mg/dL Creatinine (0.8-1.5) mg/dL Est GFR ( Amer) Est GFR (Non-Af Amer) POC Glucose (mg/dL) 175 H (65-110) mg/dL Random Glucose (75-110) mg/dL Hemoglobin A1c 11.8 H D (4.2-6.5) % Calcium (8.6-10.4) mg/dl Phosphorus (2.5-4.5) mg/dL Magnesium (1.6-2.3) mg/dL Total Bilirubin (0.2-1.3) mg/dL AST (17-59) U/L ALT (21-72) U/L Alkaline Phosphatase (38-126) U/L Troponin I 0.1320 H* (0.00-0.120) ng/mL NT-Pro-B Natriuret Pep (0-900) pg/mL Total Protein (6.3-8.3) g/dL Albumin (3.5-5.0) g/dL Globulin (2.2-3.9) gm/dL Albumin/Globulin Ratio (1.0-2.1) Triglycerides (0-149) mg/dL Cholesterol (0-199) mg/dL LDL Cholesterol Direct (0-129) mg/dL HDL Cholesterol (30-70) mg/dL Urine Color (YELLOW) Urine Clarity (Clear) Urine pH (5.0-8.0) Ur Specific Hagerman (1.003-1.030) Urine Protein (NEGATIVE) mg/dL Urine Glucose (UA) (Normal) mg/dL Urine Ketones (NEGATIVE) mg/dL Urine Blood (NEGATIVE) Urine Nitrate (NEGATIVE) Urine Bilirubin (NEGATIVE) Urine Urobilinogen (0.2-1.0) mg/dL Ur Leukocyte Esterase (Negative) Lb/uL Urine WBC (Auto) (0-5) /hpf Urine RBC (Auto) (0-3) /hpf Ur Squamous Epith Cells (0-5) /hpf Amorphous Sediment (<OCC) /ul Urine Bacteria (<OCC) 08/05/17 08/05/17 08/05/17 Range/Units 09:22 06:13 06:00 WBC 10.1 (4.8-10.8) K/uL RBC 3.65 L (4.40-5.90) Mil/uL Hgb 11.3 L (12.0-18.0) g/dL Hct 32.2 L (35.0-51.0) % MCV 88.3 (80.0-94.0) fL MCH 31.0 (27.0-31.0) pg MCHC 35.1 (33.0-37.0) g/dL RDW 14.2 (11.5-14.5) % Plt Count 224 (130-400) K/uL MPV 9.4 (7.2-11.7) fL Neut % (Auto) (50.0-75.0) % Lymph % (Auto) (20.0-40.0) % [place] % (Auto) (0.0-10.0) % Eos % (Auto) (0.0-4.0) % Baso % (Auto) (0.0-2.0) % Neut # (Auto) (1.8-7.0) K/uL Lymph # (Auto) (1.0-4.3) K/uL [place] # (Auto) (0.0-0.8) K/uL Eos # (Auto) (0.0-0.7) K/uL Baso # (Auto) (0.0-0.2) K/uL PT (9.7-12.2) SECONDS INR APTT (21-34) SECONDS Puncture Site pCO2 (35-45) mm/Hg pO2 (80-100) mm/Hg HCO3 (21-28) mmol/L ABG pH (7.35-7.45) ABG Total CO2 (22-28) mmol/L ABG O2 Saturation (95-98) % ABG Base Excess (-2.0-3.0) mmol/L ABG Hemoglobin (11.7-17.4) g/dL ABG Carboxyhemoglobin (0.5-1.5) % POC ABG HHb (Measured) (0.0-5.0) % ABG Methemoglobin (0.0-3.0) % Davon Test A-a O2 Difference mm/Hg Respiratory Index Hgb O2 Saturation (95.0-98.0) % Liter Flow FiO2 % Sodium (132-148) mmol/L Potassium (3.6-5.2) mmol/L Chloride (98-107) mmol/L Carbon Dioxide (22-30) mmol/L Anion Gap (10-20) BUN (9-20) mg/dL Creatinine (0.8-1.5) mg/dL Est GFR ( Amer) Est GFR (Non-Af Amer) POC Glucose (mg/dL) 254 H 343 H (65-110) mg/dL Random Glucose (75-110) mg/dL Hemoglobin A1c (4.2-6.5) % Calcium (8.6-10.4) mg/dl Phosphorus (2.5-4.5) mg/dL Magnesium (1.6-2.3) mg/dL Total Bilirubin (0.2-1.3) mg/dL AST (17-59) U/L ALT (21-72) U/L Alkaline Phosphatase (38-126) U/L Troponin I (0.00-0.120) ng/mL NT-Pro-B Natriuret Pep (0-900) pg/mL Total Protein (6.3-8.3) g/dL Albumin (3.5-5.0) g/dL Globulin (2.2-3.9) gm/dL Albumin/Globulin Ratio (1.0-2.1) Triglycerides (0-149) mg/dL Cholesterol (0-199) mg/dL LDL Cholesterol Direct (0-129) mg/dL HDL Cholesterol (30-70) mg/dL Urine Color (YELLOW) Urine Clarity (Clear) Urine pH (5.0-8.0) Ur Specific Hagerman (1.003-1.030) Urine Protein (NEGATIVE) mg/dL Urine Glucose (UA) (Normal) mg/dL Urine Ketones (NEGATIVE) mg/dL Urine Blood (NEGATIVE) Urine Nitrate (NEGATIVE) Urine Bilirubin (NEGATIVE) Urine Urobilinogen (0.2-1.0) mg/dL Ur Leukocyte Esterase (Negative) Lb/uL Urine WBC (Auto) (0-5) /hpf Urine RBC (Auto) (0-3) /hpf Ur Squamous Epith Cells (0-5) /hpf Amorphous Sediment (<OCC) /ul Urine Bacteria (<OCC) 08/05/17 08/05/17 08/04/17 Range/Units 06:00 06:00 23:45 WBC (4.8-10.8) K/uL RBC (4.40-5.90) Mil/uL Hgb (12.0-18.0) g/dL Hct (35.0-51.0) % MCV (80.0-94.0) fL MCH (27.0-31.0) pg MCHC (33.0-37.0) g/dL RDW (11.5-14.5) % Plt Count (130-400) K/uL MPV (7.2-11.7) fL Neut % (Auto) (50.0-75.0) % Lymph % (Auto) (20.0-40.0) % [place] % (Auto) (0.0-10.0) % Eos % (Auto) (0.0-4.0) % Baso % (Auto) (0.0-2.0) % Neut # (Auto) (1.8-7.0) K/uL Lymph # (Auto) (1.0-4.3) K/uL [place] # (Auto) (0.0-0.8) K/uL Eos # (Auto) (0.0-0.7) K/uL Baso # (Auto) (0.0-0.2) K/uL PT (9.7-12.2) SECONDS INR APTT (21-34) SECONDS Puncture Site pCO2 (35-45) mm/Hg pO2 (80-100) mm/Hg HCO3 (21-28) mmol/L ABG pH (7.35-7.45) ABG Total CO2 (22-28) mmol/L ABG O2 Saturation (95-98) % ABG Base Excess (-2.0-3.0) mmol/L ABG Hemoglobin (11.7-17.4) g/dL ABG Carboxyhemoglobin (0.5-1.5) % POC ABG HHb (Measured) (0.0-5.0) % ABG Methemoglobin (0.0-3.0) % Davon Test A-a O2 Difference mm/Hg Respiratory Index Hgb O2 Saturation (95.0-98.0) % Liter Flow FiO2 % Sodium 141 (132-148) mmol/L Potassium 3.5 L (3.6-5.2) mmol/L Chloride 105 (98-107) mmol/L Carbon Dioxide 22 (22-30) mmol/L Anion Gap 18 (10-20) BUN 30 H (9-20) mg/dL Creatinine 1.5 (0.8-1.5) mg/dL Est GFR ( Amer) 58 Est GFR (Non-Af Amer) 48 POC Glucose (mg/dL) 475 H* (65-110) mg/dL Random Glucose 333 H (75-110) mg/dL Hemoglobin A1c (4.2-6.5) % Calcium 8.6 (8.6-10.4) mg/dl Phosphorus 3.9 (2.5-4.5) mg/dL Magnesium 1.9 (1.6-2.3) mg/dL Total Bilirubin 0.6 (0.2-1.3) mg/dL AST 29 (17-59) U/L ALT 30 (21-72) U/L Alkaline Phosphatase 116 (38-126) U/L Troponin I 0.1170 (0.00-0.120) ng/mL NT-Pro-B Natriuret Pep (0-900) pg/mL Total Protein 6.7 (6.3-8.3) g/dL Albumin 3.2 L (3.5-5.0) g/dL Globulin 3.5 (2.2-3.9) gm/dL Albumin/Globulin Ratio 0.9 L (1.0-2.1) Triglycerides 65 D (0-149) mg/dL Cholesterol 253 H (0-199) mg/dL LDL Cholesterol Direct 154 H (0-129) mg/dL HDL Cholesterol 82 H (30-70) mg/dL Urine Color Yellow (YELLOW) Urine Clarity Hazy (Clear) Urine pH 5.0 (5.0-8.0) Ur Specific Hagerman 1.021 (1.003-1.030) Urine Protein 2+ H (NEGATIVE) mg/dL Urine Glucose (UA) 3+ H (Normal) mg/dL Urine Ketones 1+ H (NEGATIVE) mg/dL Urine Blood 1+ H (NEGATIVE) Urine Nitrate Negative (NEGATIVE) Urine Bilirubin Negative (NEGATIVE) Urine Urobilinogen Normal (0.2-1.0) mg/dL Ur Leukocyte Esterase Neg (Negative) Lb/uL Urine WBC (Auto) 2 (0-5) /hpf Urine RBC (Auto) 7 H (0-3) /hpf Ur Squamous Epith Cells 2 (0-5) /hpf Amorphous Sediment Occ H (<OCC) /ul Urine Bacteria Rare (<OCC) 08/04/17 08/04/17 08/04/17 Range/Units 21:14 21:06 20:32 WBC (4.8-10.8) K/uL RBC (4.40-5.90) Mil/uL Hgb (12.0-18.0) g/dL Hct (35.0-51.0) % MCV (80.0-94.0) fL MCH (27.0-31.0) pg MCHC (33.0-37.0) g/dL RDW (11.5-14.5) % Plt Count (130-400) K/uL MPV (7.2-11.7) fL Neut % (Auto) (50.0-75.0) % Lymph % (Auto) (20.0-40.0) % [place] % (Auto) (0.0-10.0) % Eos % (Auto) (0.0-4.0) % Baso % (Auto) (0.0-2.0) % Neut # (Auto) (1.8-7.0) K/uL Lymph # (Auto) (1.0-4.3) K/uL [place] # (Auto) (0.0-0.8) K/uL Eos # (Auto) (0.0-0.7) K/uL Baso # (Auto) (0.0-0.2) K/uL PT 11.7 (9.7-12.2) SECONDS INR 1.1 APTT 34 (21-34) SECONDS Puncture Site Rba pCO2 31 L (35-45) mm/Hg pO2 262 H (80-100) mm/Hg HCO3 21.3 (21-28) mmol/L ABG pH 7.40 (7.35-7.45) ABG Total CO2 20.2 L (22-28) mmol/L ABG O2 Saturation 100.1 H (95-98) % ABG Base Excess -4.6 L (-2.0-3.0) mmol/L ABG Hemoglobin 12.3 (11.7-17.4) g/dL ABG Carboxyhemoglobin 1.8 H (0.5-1.5) % POC ABG HHb (Measured) -0.1 L (0.0-5.0) % ABG Methemoglobin 1.3 (0.0-3.0) % Davon Test Pos A-a O2 Difference 412.0 mm/Hg Respiratory Index 1.6 Hgb O2 Saturation 97.1 (95.0-98.0) % Liter Flow 15.0 FiO2 100.0 % Sodium (132-148) mmol/L Potassium (3.6-5.2) mmol/L Chloride (98-107) mmol/L Carbon Dioxide (22-30) mmol/L Anion Gap (10-20) BUN (9-20) mg/dL Creatinine (0.8-1.5) mg/dL Est GFR ( Amer) Est GFR (Non-Af Amer) POC Glucose (mg/dL) 354 H (65-110) mg/dL Random Glucose (75-110) mg/dL Hemoglobin A1c (4.2-6.5) % Calcium (8.6-10.4) mg/dl Phosphorus (2.5-4.5) mg/dL Magnesium (1.6-2.3) mg/dL Total Bilirubin (0.2-1.3) mg/dL AST (17-59) U/L ALT (21-72) U/L Alkaline Phosphatase (38-126) U/L Troponin I (0.00-0.120) ng/mL NT-Pro-B Natriuret Pep (0-900) pg/mL Total Protein (6.3-8.3) g/dL Albumin (3.5-5.0) g/dL Globulin (2.2-3.9) gm/dL Albumin/Globulin Ratio (1.0-2.1) Triglycerides (0-149) mg/dL Cholesterol (0-199) mg/dL LDL Cholesterol Direct (0-129) mg/dL HDL Cholesterol (30-70) mg/dL Urine Color (YELLOW) Urine Clarity (Clear) Urine pH (5.0-8.0) Ur Specific Hagerman (1.003-1.030) Urine Protein (NEGATIVE) mg/dL Urine Glucose (UA) (Normal) mg/dL Urine Ketones (NEGATIVE) mg/dL Urine Blood (NEGATIVE) Urine Nitrate (NEGATIVE) Urine Bilirubin (NEGATIVE) Urine Urobilinogen (0.2-1.0) mg/dL Ur Leukocyte Esterase (Negative) Lb/uL Urine WBC (Auto) (0-5) /hpf Urine RBC (Auto) (0-3) /hpf Ur Squamous Epith Cells (0-5) /hpf Amorphous Sediment (<OCC) /ul Urine Bacteria (<OCC) 08/04/17 08/04/17 08/04/17 Range/Units 19:06 18:33 17:27 WBC (4.8-10.8) K/uL RBC (4.40-5.90) Mil/uL Hgb (12.0-18.0) g/dL Hct (35.0-51.0) % MCV (80.0-94.0) fL MCH (27.0-31.0) pg MCHC (33.0-37.0) g/dL RDW (11.5-14.5) % Plt Count (130-400) K/uL MPV (7.2-11.7) fL Neut % (Auto) (50.0-75.0) % Lymph % (Auto) (20.0-40.0) % [place] % (Auto) (0.0-10.0) % Eos % (Auto) (0.0-4.0) % Baso % (Auto) (0.0-2.0) % Neut # (Auto) (1.8-7.0) K/uL Lymph # (Auto) (1.0-4.3) K/uL [place] # (Auto) (0.0-0.8) K/uL Eos # (Auto) (0.0-0.7) K/uL Baso # (Auto) (0.0-0.2) K/uL PT (9.7-12.2) SECONDS INR APTT (21-34) SECONDS Puncture Site pCO2 (35-45) mm/Hg pO2 (80-100) mm/Hg HCO3 (21-28) mmol/L ABG pH (7.35-7.45) ABG Total CO2 (22-28) mmol/L ABG O2 Saturation (95-98) % ABG Base Excess (-2.0-3.0) mmol/L ABG Hemoglobin (11.7-17.4) g/dL ABG Carboxyhemoglobin (0.5-1.5) % POC ABG HHb (Measured) (0.0-5.0) % ABG Methemoglobin (0.0-3.0) % Davon Test A-a O2 Difference mm/Hg Respiratory Index Hgb O2 Saturation (95.0-98.0) % Liter Flow FiO2 % Sodium (132-148) mmol/L Potassium (3.6-5.2) mmol/L Chloride (98-107) mmol/L Carbon Dioxide (22-30) mmol/L Anion Gap (10-20) BUN (9-20) mg/dL Creatinine (0.8-1.5) mg/dL Est GFR ( Amer) Est GFR (Non-Af Amer) POC Glucose (mg/dL) 349 H 419 H* (65-110) mg/dL Random Glucose (75-110) mg/dL Hemoglobin A1c (4.2-6.5) % Calcium (8.6-10.4) mg/dl Phosphorus (2.5-4.5) mg/dL Magnesium (1.6-2.3) mg/dL Total Bilirubin (0.2-1.3) mg/dL AST (17-59) U/L ALT (21-72) U/L Alkaline Phosphatase (38-126) U/L Troponin I 0.0770 (0.00-0.120) ng/mL NT-Pro-B Natriuret Pep 8630 H (0-900) pg/mL Total Protein (6.3-8.3) g/dL Albumin (3.5-5.0) g/dL Globulin (2.2-3.9) gm/dL Albumin/Globulin Ratio (1.0-2.1) Triglycerides (0-149) mg/dL Cholesterol (0-199) mg/dL LDL Cholesterol Direct (0-129) mg/dL HDL Cholesterol (30-70) mg/dL Urine Color (YELLOW) Urine Clarity (Clear) Urine pH (5.0-8.0) Ur Specific Hagerman (1.003-1.030) Urine Protein (NEGATIVE) mg/dL Urine Glucose (UA) (Normal) mg/dL Urine Ketones (NEGATIVE) mg/dL Urine Blood (NEGATIVE) Urine Nitrate (NEGATIVE) Urine Bilirubin (NEGATIVE) Urine Urobilinogen (0.2-1.0) mg/dL Ur Leukocyte Esterase (Negative) Lb/uL Urine WBC (Auto) (0-5) /hpf Urine RBC (Auto) (0-3) /hpf Ur Squamous Epith Cells (0-5) /hpf Amorphous Sediment (<OCC) /ul Urine Bacteria (<OCC) 08/04/17 08/04/17 08/04/17 Range/Units 17:25 17:20 17:20 WBC 10.6 D (4.8-10.8) K/uL RBC 4.05 L (4.40-5.90) Mil/uL Hgb 12.5 (12.0-18.0) g/dL Hct 35.5 (35.0-51.0) % MCV 87.8 D (80.0-94.0) fL MCH 30.8 (27.0-31.0) pg MCHC 35.1 (33.0-37.0) g/dL RDW 13.6 (11.5-14.5) % Plt Count 239 (130-400) K/uL MPV 9.0 (7.2-11.7) fL Neut % (Auto) 76.7 H (50.0-75.0) % Lymph % (Auto) 16.9 L (20.0-40.0) % [place] % (Auto) 5.1 (0.0-10.0) % Eos % (Auto) 0.7 (0.0-4.0) % Baso % (Auto) 0.6 (0.0-2.0) % Neut # (Auto) 8.1 H (1.8-7.0) K/uL Lymph # (Auto) 1.8 (1.0-4.3) K/uL [place] # (Auto) 0.5 (0.0-0.8) K/uL Eos # (Auto) 0.1 (0.0-0.7) K/uL Baso # (Auto) 0.1 (0.0-0.2) K/uL PT (9.7-12.2) SECONDS INR APTT (21-34) SECONDS Puncture Site pCO2 (35-45) mm/Hg pO2 (80-100) mm/Hg HCO3 (21-28) mmol/L ABG pH (7.35-7.45) ABG Total CO2 (22-28) mmol/L ABG O2 Saturation (95-98) % ABG Base Excess (-2.0-3.0) mmol/L ABG Hemoglobin (11.7-17.4) g/dL ABG Carboxyhemoglobin (0.5-1.5) % POC ABG HHb (Measured) (0.0-5.0) % ABG Methemoglobin (0.0-3.0) % Davon Test A-a O2 Difference mm/Hg Respiratory Index Hgb O2 Saturation (95.0-98.0) % Liter Flow FiO2 % Sodium 137 (132-148) mmol/L Potassium 3.8 (3.6-5.2) mmol/L Chloride 104 (98-107) mmol/L Carbon Dioxide 20 L (22-30) mmol/L Anion Gap 18 (10-20) BUN 26 H (9-20) mg/dL Creatinine 1.5 (0.8-1.5) mg/dL Est GFR ( Amer) 58 Est GFR (Non-Af Amer) 48 POC Glucose (mg/dL) 413 H* (65-110) mg/dL Random Glucose 455 H* D (75-110) mg/dL Hemoglobin A1c (4.2-6.5) % Calcium 9.1 (8.6-10.4) mg/dl Phosphorus (2.5-4.5) mg/dL Magnesium (1.6-2.3) mg/dL Total Bilirubin 0.6 (0.2-1.3) mg/dL AST 65 H D (17-59) U/L ALT 48 (21-72) U/L Alkaline Phosphatase 169 H D (38-126) U/L Troponin I (0.00-0.120) ng/mL NT-Pro-B Natriuret Pep (0-900) pg/mL Total Protein 7.4 (6.3-8.3) g/dL Albumin 3.7 (3.5-5.0) g/dL Globulin 3.7 (2.2-3.9) gm/dL Albumin/Globulin Ratio 1.0 (1.0-2.1) Triglycerides (0-149) mg/dL Cholesterol (0-199) mg/dL LDL Cholesterol Direct (0-129) mg/dL HDL Cholesterol (30-70) mg/dL Urine Color (YELLOW) Urine Clarity (Clear) Urine pH (5.0-8.0) Ur Specific Hagerman (1.003-1.030) Urine Protein (NEGATIVE) mg/dL Urine Glucose (UA) (Normal) mg/dL Urine Ketones (NEGATIVE) mg/dL Urine Blood (NEGATIVE) Urine Nitrate (NEGATIVE) Urine Bilirubin (NEGATIVE) Urine Urobilinogen (0.2-1.0) mg/dL Ur Leukocyte Esterase (Negative) Lb/uL Urine WBC (Auto) (0-5) /hpf Urine RBC (Auto) (0-3) /hpf Ur Squamous Epith Cells (0-5) /hpf Amorphous Sediment (<OCC) /ul Urine Bacteria (<OCC) Laboratory Results - last 24 hr 08/04/17 08/04/17 08/04/17 17:20 17:20 17:25 WBC 10.6 D RBC 4.05 L Hgb 12.5 Hct 35.5 MCV 87.8 D MCH 30.8 MCHC 35.1 RDW 13.6 Plt Count 239 MPV 9.0 Neut % (Auto) 76.7 H Lymph % (Auto) 16.9 L [place] % (Auto) 5.1 Eos % (Auto) 0.7 Baso % (Auto) 0.6 Neut # (Auto) 8.1 H Lymph # (Auto) 1.8 [place] # (Auto) 0.5 Eos # (Auto) 0.1 Baso # (Auto) 0.1 PT INR APTT Puncture Site pCO2 pO2 HCO3 ABG pH ABG Total CO2 ABG O2 Saturation ABG Base Excess ABG Hemoglobin ABG Carboxyhemoglobin POC ABG HHb (Measured) ABG Methemoglobin Davon Test A-a O2 Difference Respiratory Index Hgb O2 Saturation Liter Flow FiO2 Sodium 137 Potassium 3.8 Chloride 104 Carbon Dioxide 20 L Anion Gap 18 BUN 26 H Creatinine 1.5 Est GFR ( Amer) 58 Est GFR (Non-Af Amer) 48 POC Glucose (mg/dL) 413 H* Random Glucose 455 H* D Hemoglobin A1c Calcium 9.1 Phosphorus Magnesium Total Bilirubin 0.6 AST 65 H D ALT 48 Alkaline Phosphatase 169 H D Troponin I NT-Pro-B Natriuret Pep Total Protein 7.4 Albumin 3.7 Globulin 3.7 Albumin/Globulin Ratio 1.0 Triglycerides Cholesterol LDL Cholesterol Direct HDL Cholesterol Urine Color Urine Clarity Urine pH Ur Specific Hagerman Urine Protein Urine Glucose (UA) Urine Ketones Urine Blood Urine Nitrate Urine Bilirubin Urine Urobilinogen Ur Leukocyte Esterase Urine WBC (Auto) Urine RBC (Auto) Ur Squamous Epith Cells Amorphous Sediment Urine Bacteria 08/04/17 08/04/17 08/04/17 17:27 18:33 19:06 WBC RBC Hgb Hct MCV MCH MCHC RDW Plt Count MPV Neut % (Auto) Lymph % (Auto) [place] % (Auto) Eos % (Auto) Baso % (Auto) Neut # (Auto) Lymph # (Auto) [place] # (Auto) Eos # (Auto) Baso # (Auto) PT INR APTT Puncture Site pCO2 pO2 HCO3 ABG pH ABG Total CO2 ABG O2 Saturation ABG Base Excess ABG Hemoglobin ABG Carboxyhemoglobin POC ABG HHb (Measured) ABG Methemoglobin Davon Test A-a O2 Difference Respiratory Index Hgb O2 Saturation Liter Flow FiO2 Sodium Potassium Chloride Carbon Dioxide Anion Gap BUN Creatinine Est GFR ( Amer) Est GFR (Non-Af Amer) POC Glucose (mg/dL) 419 H* 349 H Random Glucose Hemoglobin A1c Calcium Phosphorus Magnesium Total Bilirubin AST ALT Alkaline Phosphatase Troponin I 0.0770 NT-Pro-B Natriuret Pep 8630 H Total Protein Albumin Globulin Albumin/Globulin Ratio Triglycerides Cholesterol LDL Cholesterol Direct HDL Cholesterol Urine Color Urine Clarity Urine pH Ur Specific Hagerman Urine Protein Urine Glucose (UA) Urine Ketones Urine Blood Urine Nitrate Urine Bilirubin Urine Urobilinogen Ur Leukocyte Esterase Urine WBC (Auto) Urine RBC (Auto) Ur Squamous Epith Cells Amorphous Sediment Urine Bacteria 08/04/17 08/04/17 08/04/17 20:32 21:06 21:14 WBC RBC Hgb Hct MCV MCH MCHC RDW Plt Count MPV Neut % (Auto) Lymph % (Auto) [place] % (Auto) Eos % (Auto) Baso % (Auto) Neut # (Auto) Lymph # (Auto) [place] # (Auto) Eos # (Auto) Baso # (Auto) PT 11.7 INR 1.1 APTT 34 Puncture Site Rba pCO2 31 L pO2 262 H HCO3 21.3 ABG pH 7.40 ABG Total CO2 20.2 L ABG O2 Saturation 100.1 H ABG Base Excess -4.6 L ABG Hemoglobin 12.3 ABG Carboxyhemoglobin 1.8 H POC ABG HHb (Measured) -0.1 L ABG Methemoglobin 1.3 Davon Test Pos A-a O2 Difference 412.0 Respiratory Index 1.6 Hgb O2 Saturation 97.1 Liter Flow 15.0 FiO2 100.0 Sodium Potassium Chloride Carbon Dioxide Anion Gap BUN Creatinine Est GFR ( Amer) Est GFR (Non-Af Amer) POC Glucose (mg/dL) 354 H Random Glucose Hemoglobin A1c Calcium Phosphorus Magnesium Total Bilirubin AST ALT Alkaline Phosphatase Troponin I NT-Pro-B Natriuret Pep Total Protein Albumin Globulin Albumin/Globulin Ratio Triglycerides Cholesterol LDL Cholesterol Direct HDL Cholesterol Urine Color Urine Clarity Urine pH Ur Specific [place]erman Urine Protein Urine Glucose (UA) Urine Ketones Urine Blood Urine Nitrate Urine Bilirubin Urine Urobilinogen Ur Leukocyte Esterase Urine WBC (Auto) Urine RBC (Auto) Ur Squamous Epith Cells Amorphous Sediment Urine Bacteria 08/04/17 08/05/17 08/05/17 23:45 06:00 06:00 WBC RBC Hgb Hct MCV MCH MCHC RDW Plt Count MPV Neut % (Auto) Lymph % (Auto) [place] % (Auto) Eos % (Auto) Baso % (Auto) Neut # (Auto) Lymph # (Auto) [place] # (Auto) Eos # (Auto) Baso # (Auto) PT INR APTT Puncture Site pCO2 pO2 HCO3 ABG pH ABG Total CO2 ABG O2 Saturation ABG Base Excess ABG Hemoglobin ABG Carboxyhemoglobin POC ABG HHb (Measured) ABG Methemoglobin Davon Test A-a O2 Difference Respiratory Index Hgb O2 Saturation Liter Flow FiO2 Sodium 141 Potassium 3.5 L Chloride 105 Carbon Dioxide 22 Anion Gap 18 BUN 30 H Creatinine 1.5 Est GFR ( Amer) 58 Est GFR (Non-Af Amer) 48 POC Glucose (mg/dL) 475 H* Random Glucose 333 H Hemoglobin A1c Calcium 8.6 Phosphorus 3.9 Magnesium 1.9 Total Bilirubin 0.6 AST 29 ALT 30 Alkaline Phosphatase 116 Troponin I 0.1170 NT-Pro-B Natriuret Pep Total Protein 6.7 Albumin 3.2 L Globulin 3.5 Albumin/Globulin Ratio 0.9 L Triglycerides 65 D Cholesterol 253 H LDL Cholesterol Direct 154 H HDL Cholesterol 82 H Urine Color Yellow Urine Clarity Hazy Urine pH 5.0 Ur Specific Hagerman 1.021 Urine Protein 2+ H Urine Glucose (UA) 3+ H Urine Ketones 1+ H Urine Blood 1+ H Urine Nitrate Negative Urine Bilirubin Negative Urine Urobilinogen Normal Ur Leukocyte Esterase Neg Urine WBC (Auto) 2 Urine RBC (Auto) 7 H Ur Squamous Epith Cells 2 Amorphous Sediment Occ H Urine Bacteria Rare 08/05/17 08/05/17 08/05/17 06:00 06:13 09:22 WBC 10.1 RBC 3.65 L Hgb 11.3 L Hct 32.2 L MCV 88.3 MCH 31.0 MCHC 35.1 RDW 14.2 Plt Count 224 MPV 9.4 Neut % (Auto) Lymph % (Auto) [place] % (Auto) Eos % (Auto) Baso % (Auto) Neut # (Auto) Lymph # (Auto) [place] # (Auto) Eos # (Auto) Baso # (Auto) PT INR APTT Puncture Site pCO2 pO2 HCO3 ABG pH ABG Total CO2 ABG O2 Saturation ABG Base Excess ABG Hemoglobin ABG Carboxyhemoglobin POC ABG HHb (Measured) ABG Methemoglobin Davon Test A-a O2 Difference Respiratory Index Hgb O2 Saturation Liter Flow FiO2 Sodium Potassium Chloride Carbon Dioxide Anion Gap BUN Creatinine Est GFR ( Amer) Est GFR (Non-Af Amer) POC Glucose (mg/dL) 343 H 254 H Random Glucose Hemoglobin A1c Calcium Phosphorus Magnesium Total Bilirubin AST ALT Alkaline Phosphatase Troponin I NT-Pro-B Natriuret Pep Total Protein Albumin Globulin Albumin/Globulin Ratio Triglycerides Cholesterol LDL Cholesterol Direct HDL Cholesterol Urine Color Urine Clarity Urine pH Ur Specific [place]erman Urine Protein Urine Glucose (UA) Urine Ketones Urine Blood Urine Nitrate Urine Bilirubin Urine Urobilinogen Ur Leukocyte Esterase Urine WBC (Auto) Urine RBC (Auto) Ur Squamous Epith Cells Amorphous Sediment Urine Bacteria 08/05/17 08/05/17 08/05/17 10:52 10:52 11:43 WBC RBC Hgb Hct MCV MCH MCHC RDW Plt Count MPV Neut % (Auto) Lymph % (Auto) [place] % (Auto) Eos % (Auto) Baso % (Auto) Neut # (Auto) Lymph # (Auto) [place] # (Auto) Eos # (Auto) Baso # (Auto) PT INR APTT Puncture Site pCO2 pO2 HCO3 ABG pH ABG Total CO2 ABG O2 Saturation ABG Base Excess ABG Hemoglobin ABG Carboxyhemoglobin POC ABG HHb (Measured) ABG Methemoglobin Davon Test A-a O2 Difference Respiratory Index Hgb O2 Saturation Liter Flow FiO2 Sodium Potassium Chloride Carbon Dioxide Anion Gap BUN Creatinine Est GFR ( Amer) Est GFR (Non-Af Amer) POC Glucose (mg/dL) 175 H Random Glucose Hemoglobin A1c 11.8 H D Calcium Phosphorus Magnesium Total Bilirubin AST ALT Alkaline Phosphatase Troponin I 0.1320 H* NT-Pro-B Natriuret Pep Total Protein Albumin Globulin Albumin/Globulin Ratio Triglycerides Cholesterol LDL Cholesterol Direct HDL Cholesterol Urine Color Urine Clarity Urine pH Ur Specific [place] Urine Protein Urine Glucose (UA) Urine Ketones Urine Blood Urine Nitrate Urine Bilirubin Urine Urobilinogen Ur Leukocyte Esterase Urine WBC (Auto) Urine RBC (Auto) Ur Squamous Epith Cells Amorphous Sediment Urine Bacteria EKG/Cardiology Studies: Cardiology / EKG Studies 08/04/17 17:05 ELECTROCARDIOGRAM Stat Comment: Mode Of Transportation: BED Reason For Exam: Headache 08/04/17 17:12 ELECTROCARDIOGRAM Stat Comment: Mode Of Transportation: BED Reason For Exam: Headache 08/04/17 19:16 EKG [ELECTROCARDIOGRAM] Stat Comment: Mode Of Transportation: BED Reason For Exam: repeat 08/05/17 07:30 EKG [ELECTROCARDIOGRAM] Routine Comment: Mode Of Transportation: PORTABLE Reason For Exam: Pulmonary edema Critical Care Progress Note - Nutrition Nutrition: Nutrition Category Date Time Status NPO Diet [DIET] Diets 08/04/17 Dinner Active Assessment/Plan - Assessment and Plan (Free Text) Plan: Patient seen and examined at bedside. Above resident note reviewed and verified. Patient has baseline chroinc systolic heart failure with HTN. -CVA: hemorrahgic: hold asa/anticoagulant, continue statin -Chronic systolic heart failure: continue coreg, hold vasotec as cretinine high , start hydralazine and nitrates as BP toleraes, continue lasix oral -pulmonaryedema resolved saturating >92 on room air -DM: continue levemir and ISS ETOH abuse: no signs of withdrawal, continue MVI/thiamine/foalte -Patient remains hemodynamically stable. titrat eoff nicardipine dvt: scds pud pepcid patient remains hemodynamically stable. - Date & Time Date: 08/05/17 Time: 11:00
[2017-08-05] MEDS: Acetylcysteine 20% Inhal Soln (4ml) PO SCH ×2 (10:45→23:20)
--- NOTE | 2017-08-05 11:28 | CP.PCM.CON ---
History of Present Illness - History of Present Illness History of Present Illness: NEURO-INTERVENTIONAL CONSULTATION The patient is a 56 year old male with a PMH that is signifigant for HTN, DM, HLD, Cardiac disease s/p stent, cardiomyopthy who came to the ER at [facility] complaining of a severe sudden onset headache. SBPs in the ER was into the 240's and was initally refractory to multiple antihypertensive agents. The patient also developed flash pulmonary edema and was stabilized and transferred to the ICU. Review of Systems - Constitutional Constitutional: As Per HPI - EENT Eyes: As Per HPI - Cardiovascular Cardiovascular: As Per HPI - Respiratory Respiratory: As Per HPI - Musculoskeletal Musculoskeletal: As Per HPI - Neurological Neurological: As Per HPI Past Patient History - Infectious Disease Hx of Infectious Diseases: None - Tetanus Immunizations Tetanus Immunization: Unknown - Past Medical History & Family History Past Medical History?: Yes Past Family History: Reviewed and not pertinent - Past Social History Smoking Status: Former Smoker Chewing Tobacco Use: No Cigar Use: No Alcohol: < 2 Drinks/Day Drugs: Denies Home Situation {Lives}: Alone - CARDIAC Hx Congestive Heart Failure: Yes Hx Hypercholesterolemia: Yes Hx Hypertension: Yes (uncontrolled) - PULMONARY Hx Asthma: Yes Hx Chronic Obstructive Pulmonary Disease (COPD): Yes - NEUROLOGICAL Hx Neurological Disorder: No - HEENT Hx HEENT Problems: No - RENAL Hx Chronic Kidney Disease: No - ENDOCRINE/METABOLIC Hx Diabetes Mellitus Type 2: Yes (uncontrolled) - HEMATOLOGICAL/ONCOLOGICAL Hx Blood Disorders: No - INTEGUMENTARY Hx Dermatological Problems: No - MUSCULOSKELETAL/RHEUMATOLOGICAL Hx Musculoskeletal Disorders: No Hx Falls: No - GASTROINTESTINAL Hx Gastrointestinal Disorders: No Other/Comment: "liver problem" - GENITOURINARY/GYNECOLOGICAL Hx Genitourinary Disorders: No - PSYCHIATRIC Hx Substance Use: No - SURGICAL HISTORY Hx Appendectomy: Yes (1997) Hx Coronary Stent: Yes (1 stent placed 5 years ago) - ANESTHESIA Hx Anesthesia: Yes Hx Anesthesia Reactions: No Hx Malignant Hyperthermia: No Meds Allergies/Adverse Reactions: Allergies Allergy/AdvReac Type Severity Reaction Status Date / Time No Known Allergies Allergy Verified 05/14/15 06:15 - Medications Medications: Current Medications Acetylcysteine (Acetylcysteine 20%) 8 ml PO Q12 JESSE Stop: 08/06/17 22:01 Famotidine (Pepcid) 20 mg IVP DAILY JESSE Furosemide (Lasix) 40 mg PO DAILY JESSE Last Admin: 08/05/17 10:09 Dose: 40 mg Hydralazine HCl (Apresoline) 10 mg IVP STAT [facility] [place] Last Admin: 08/04/17 19:04 Dose: 10 mg Hydralazine HCl (Apresoline) 10 mg PO Q8H [facility] Last Admin: 08/05/17 10:40 Dose: 10 mg Nicardipine HCl 25 mg/ Sodium (Chloride) 250 mls @ 50 mls/hr IV .Q5H JESSE; 5 MG/ HR PRN Reason: Protocol Last Admin: 08/05/17 09:15 Dose: 10 mg/hr, 100 mls/hr Levetiracetam 500 mg/ Dextrose 105 mls @ 420 mls/hr IVPB Q12H JESSE Insulin Aspart (Novolog) 0 unit SC Q4 JESSE PRN Reason: Protocol Last Admin: 08/05/17 10:10 Dose: 4 unit Insulin Detemir (Levemir) 20 unit SC HS JESSE Isosorbide Dinitrate (Isordil) 10 mg PO BID [facility] Last Admin: 08/05/17 10:40 Dose: 10 mg Labetalol HCl (Trandate) 200 mg PO Q8 [facility] [place] Last Admin: 08/05/17 10:40 Dose: 200 mg Nitroglycerin (Nitrostat Sl Tab) 0.4 mg SL Q5M PRN PRN Reason: Shortness of Breath Last Admin: 08/04/17 18:50 Dose: 0.4 mg Physical Exam - Additional Findings Additional findings: NEURO EXAM AOx3, No dysarthria No aphasia, speech fluent No facial droop, T/U midline PERRL, +right CN 6 palsy with inability to exo deviate right eye. +diplopia on horizontal gaze No nystagmus Moves all extremities, No drift No gross sensory abnomalities FNF normal B/L gait deferred Results - Vital Signs Recent Vital Signs: Last Vital Signs Temp 97.7 F 08/05/17 04:00 Pulse 91 H 08/05/17 07:02 Resp 19 08/05/17 07:02 BP 147/71 08/05/17 10:09 Pulse Ox 99 08/05/17 07:02 - Labs Result Diagrams: 08/05/17 06:00 08/05/17 06:00 Labs: Laboratory Results - last 24 hr 08/04/17 08/04/17 08/04/17 17:20 17:20 17:25 WBC 10.6 D RBC 4.05 L Hgb 12.5 Hct 35.5 MCV 87.8 D MCH 30.8 MCHC 35.1 RDW 13.6 Plt Count 239 MPV 9.0 Neut % (Auto) 76.7 H Lymph % (Auto) 16.9 L [place] % (Auto) 5.1 Eos % (Auto) 0.7 Baso % (Auto) 0.6 Neut # (Auto) 8.1 H Lymph # (Auto) 1.8 [place] # (Auto) 0.5 Eos # (Auto) 0.1 Baso # (Auto) 0.1 PT INR APTT Puncture Site pCO2 pO2 HCO3 ABG pH ABG Total CO2 ABG O2 Saturation ABG Base Excess ABG Hemoglobin ABG Carboxyhemoglobin POC ABG HHb (Measured) ABG Methemoglobin Davon Test A-a O2 Difference Respiratory Index Hgb O2 Saturation Liter Flow FiO2 Sodium 137 Potassium 3.8 Chloride 104 Carbon Dioxide 20 L Anion Gap 18 BUN 26 H Creatinine 1.5 Est GFR ( Amer) 58 Est GFR (Non-Af Amer) 48 POC Glucose (mg/dL) 413 H* Random Glucose 455 H* D Calcium 9.1 Phosphorus Magnesium Total Bilirubin 0.6 AST 65 H D ALT 48 Alkaline Phosphatase 169 H D Troponin I NT-Pro-B Natriuret Pep Total Protein 7.4 Albumin 3.7 Globulin 3.7 Albumin/Globulin Ratio 1.0 Triglycerides Cholesterol LDL Cholesterol Direct HDL Cholesterol Urine Color Urine Clarity Urine pH Ur Specific [place] Urine Protein Urine Glucose (UA) Urine Ketones Urine Blood Urine Nitrate Urine Bilirubin Urine Urobilinogen Ur Leukocyte Esterase Urine WBC (Auto) Urine RBC (Auto) Ur Squamous Epith Cells Amorphous Sediment Urine Bacteria 08/04/17 08/04/17 08/04/17 17:27 18:33 19:06 WBC RBC Hgb Hct MCV MCH MCHC RDW Plt Count MPV Neut % (Auto) Lymph % (Auto) [place] % (Auto) Eos % (Auto) Baso % (Auto) Neut # (Auto) Lymph # (Auto) [place] # (Auto) Eos # (Auto) Baso # (Auto) PT INR APTT Puncture Site pCO2 pO2 HCO3 ABG pH ABG Total CO2 ABG O2 Saturation ABG Base Excess ABG Hemoglobin ABG Carboxyhemoglobin POC ABG HHb (Measured) ABG Methemoglobin Davon Test A-a O2 Difference Respiratory Index Hgb O2 Saturation Liter Flow FiO2 Sodium Potassium Chloride Carbon Dioxide Anion Gap BUN Creatinine Est GFR ( Amer) Est GFR (Non-Af Amer) POC Glucose (mg/dL) 419 H* 349 H Random Glucose Calcium Phosphorus Magnesium Total Bilirubin AST ALT Alkaline Phosphatase Troponin I 0.0770 NT-Pro-B Natriuret Pep 8630 H Total Protein Albumin Globulin Albumin/Globulin Ratio Triglycerides Cholesterol LDL Cholesterol Direct HDL Cholesterol Urine Color Urine Clarity Urine pH Ur Specific [place] Urine Protein Urine Glucose (UA) Urine Ketones Urine Blood Urine Nitrate Urine Bilirubin Urine Urobilinogen Ur Leukocyte Esterase Urine WBC (Auto) Urine RBC (Auto) Ur Squamous Epith Cells Amorphous Sediment Urine Bacteria 08/04/17 08/04/17 08/04/17 20:32 21:06 21:14 WBC RBC Hgb Hct MCV MCH MCHC RDW Plt Count MPV Neut % (Auto) Lymph % (Auto) [place] % (Auto) Eos % (Auto) Baso % (Auto) Neut # (Auto) Lymph # (Auto) [place] # (Auto) Eos # (Auto) Baso # (Auto) PT 11.7 INR 1.1 APTT 34 Puncture Site Rba pCO2 31 L pO2 262 H HCO3 21.3 ABG pH 7.40 ABG Total CO2 20.2 L ABG O2 Saturation 100.1 H ABG Base Excess -4.6 L ABG Hemoglobin 12.3 ABG Carboxyhemoglobin 1.8 H POC ABG HHb (Measured) -0.1 L ABG Methemoglobin 1.3 Davon Test Pos A-a O2 Difference 412.0 Respiratory Index 1.6 Hgb O2 Saturation 97.1 Liter Flow 15.0 FiO2 100.0 Sodium Potassium Chloride Carbon Dioxide Anion Gap BUN Creatinine Est GFR ( Amer) Est GFR (Non-Af Amer) POC Glucose (mg/dL) 354 H Random Glucose Calcium Phosphorus Magnesium Total Bilirubin AST ALT Alkaline Phosphatase Troponin I NT-Pro-B Natriuret Pep Total Protein Albumin Globulin Albumin/Globulin Ratio Triglycerides Cholesterol LDL Cholesterol Direct HDL Cholesterol Urine Color Urine Clarity Urine pH Ur Specific [place] Urine Protein Urine Glucose (UA) Urine Ketones Urine Blood Urine Nitrate Urine Bilirubin Urine Urobilinogen Ur Leukocyte Esterase Urine WBC (Auto) Urine RBC (Auto) Ur Squamous Epith Cells Amorphous Sediment Urine Bacteria 08/04/17 08/05/17 08/05/17 23:45 06:00 06:00 WBC RBC Hgb Hct MCV MCH MCHC RDW Plt Count MPV Neut % (Auto) Lymph % (Auto) [place] % (Auto) Eos % (Auto) Baso % (Auto) Neut # (Auto) Lymph # (Auto) [place] # (Auto) Eos # (Auto) Baso # (Auto) PT INR APTT Puncture Site pCO2 pO2 HCO3 ABG pH ABG Total CO2 ABG O2 Saturation ABG Base Excess ABG Hemoglobin ABG Carboxyhemoglobin POC ABG HHb (Measured) ABG Methemoglobin Davon Test A-a O2 Difference Respiratory Index Hgb O2 Saturation Liter Flow FiO2 Sodium 141 Potassium 3.5 L Chloride 105 Carbon Dioxide 22 Anion Gap 18 BUN 30 H Creatinine 1.5 Est GFR ( Amer) 58 Est GFR (Non-Af Amer) 48 POC Glucose (mg/dL) 475 H* Random Glucose 333 H Calcium 8.6 Phosphorus 3.9 Magnesium 1.9 Total Bilirubin 0.6 AST 29 ALT 30 Alkaline Phosphatase 116 Troponin I 0.1170 NT-Pro-B Natriuret Pep Total Protein 6.7 Albumin 3.2 L Globulin 3.5 Albumin/Globulin Ratio 0.9 L Triglycerides 65 D Cholesterol 253 H LDL Cholesterol Direct 154 H HDL Cholesterol 82 H Urine Color Yellow Urine Clarity Hazy Urine pH 5.0 Ur Specific [place] 1.021 Urine Protein 2+ H Urine Glucose (UA) 3+ H Urine Ketones 1+ H Urine Blood 1+ H Urine Nitrate Negative Urine Bilirubin Negative Urine Urobilinogen Normal Ur Leukocyte Esterase Neg Urine WBC (Auto) 2 Urine RBC (Auto) 7 H Ur Squamous Epith Cells 2 Amorphous Sediment Occ H Urine Bacteria Rare 08/05/17 08/05/17 08/05/17 06:00 06:13 09:22 WBC 10.1 RBC 3.65 L Hgb 11.3 L Hct 32.2 L MCV 88.3 MCH 31.0 MCHC 35.1 RDW 14.2 Plt Count 224 MPV 9.4 Neut % (Auto) Lymph % (Auto) [place] % (Auto) Eos % (Auto) Baso % (Auto) Neut # (Auto) Lymph # (Auto) [place] # (Auto) Eos # (Auto) Baso # (Auto) PT INR APTT Puncture Site pCO2 pO2 HCO3 ABG pH ABG Total CO2 ABG O2 Saturation ABG Base Excess ABG Hemoglobin ABG Carboxyhemoglobin POC ABG HHb (Measured) ABG Methemoglobin Davon Test A-a O2 Difference Respiratory Index Hgb O2 Saturation Liter Flow FiO2 Sodium Potassium Chloride Carbon Dioxide Anion Gap BUN Creatinine Est GFR ( Amer) Est GFR (Non-Af Amer) POC Glucose (mg/dL) 343 H 254 H Random Glucose Calcium Phosphorus Magnesium Total Bilirubin AST ALT Alkaline Phosphatase Troponin I NT-Pro-B Natriuret Pep Total Protein Albumin Globulin Albumin/Globulin Ratio Triglycerides Cholesterol LDL Cholesterol Direct HDL Cholesterol Urine Color Urine Clarity Urine pH Ur Specific [place] Urine Protein Urine Glucose (UA) Urine Ketones Urine Blood Urine Nitrate Urine Bilirubin Urine Urobilinogen Ur Leukocyte Esterase Urine WBC (Auto) Urine RBC (Auto) Ur Squamous Epith Cells Amorphous Sediment Urine Bacteria - Imaging and Cardiology CTA Brain Status: Image reviewed by me Assessment & Plan - Assessment and Plan (Free Text) Assessment: 56 year old male with a 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 2-If a vascular lesion is found will need transfer out to anouther facility for treatment. 3-Management in the ICU as per neurology and critical care medicine. - Date & Time Date: 08/05/17 Time: 11:28
--- NOTE | 2017-08-05 12:10 | CP.PCM.PN ---
Subjective - Date & Time of Evaluation Date of Evaluation: 08/05/17 Time of Evaluation: 11:30 - Subjective Subjective: Hospitalist Progress Note Patient was seen and examined at 11:30 AM ICU Bed 6 56 year old male who presented with headache and was found to have Hypertensive Emergency and Subarachnoid Hemorrhage. Upon questioning patient he is unable to provide any information what medications he takes, when was the last time that he took them, where in [place] he gets them filled or the name of the pharmacy where he gets them filled. I have asked him to have his friend who will be coming by later after work to bring his medications from home. I spoke with his PMD Dr. Cardenas and updated her as to patient status. She explained that the patient has a history of coming to see her after he has run out of his medications. His last time at her office for exam was some time in March 2017 and at that time he was taking the following medications: Saxagliptin 5 mg PO 1x/day Lasix 20 mg PO 1x/day Lipitor 40 mg PO 1x/day Metformin 1,000 mg PO 2x/day ASA 81 mg PO 1x/day Dr. Cardenas explained that the patient was also supposed to be taking Coreg, Fenofibrate but he stated at the time that he stopped them on his own. Spoke with Interventional Radiologist and he will be taking patient for diagnostic angiogram and if aneurysm is found, will at that time request patient to be transferred to [facility] which patient refused at this time. Upon FULL ROS: Headache has improved NO other complaints Exam: General: AAOX3, NAD HEENT: NCA, PERRLA, Right Eye without ability to abduct laterally (states that this has been present for years but can not tell situation around what caused this, EOM for Left Eye are intact, NO cervical/supraclavicular/submandibular lymphadenopathy, NO pharyngeal erythema/exudate, Nasal Turbinates are nonerythematous/nonedematous, Oral Mucosa is moist Cardio: NS1 and NS2, NO M/R/G Resp: CTA B/L, NO R/R/W GI: BSx4, Soft, NT, NO HSM, NO guarding/rebound tenderness Ext: Pulses are strong and equal, Capillary Refill is 2 seconds, NO edema Neuro: CN II through XII are grossly intact Assessment and Plan: 1). SAH Levetiracetam For Diagnostic Angiogram 2). Uncontrolled Blood Pressure Hydralazine 10 mg PO Q8H Labetalol 200 mg PO Q8H Isosorbide Dinitrate 10 mg PO 2x/day Nicardipine Drip 5 mg/hr 3). CAD with Stent/HFrEF Cardiac Catheterization by Dr. Arellano 2015 showed cariomyopathy with EF 20-25% Lasix 40 mg PO 1x/day Hydralazine 10 mg PO Q8H Isosorbide Dinitrate 10 mg PO 2x/day 4). COPD/Asthma NOT on medications at this time 5). HLD Crestor 20 mg PO 1x/day 6). DM 2 Levemir 20 units SC HS HgBA1C is 11.8 7). Prophylaxis Acetylcystien 20% PO Q12H x 4 doses Pepcid 20 mg IV 1x/day NO anticoagulation considering SAH: SCDs for now Andrew Robles D.O. Objective - Vital Signs/Intake and Output Vital Signs (last 24 hours): Temp Pulse Resp BP Pulse Ox 97.7 F 91 H 19 147/71 99 08/05/17 04:00 08/05/17 07:02 08/05/17 07:02 08/05/17 10:09 08/05/17 07:02 Intake and Output: 08/05/17 08/05/17 06:59 18:59 Intake Total 2030 390 Output Total 3595 Balance -1565 390 - Medications Medications: Current Medications Acetylcysteine (Acetylcysteine 20%) 8 ml PO Q12 JESSE Stop: 08/06/17 22:01 Carvedilol (Coreg) 25 mg PO BID [facility] Enalapril Maleate (Vasotec) 20 mg PO DAILY JESSE Famotidine (Pepcid) 20 mg IVP DAILY JESSE Furosemide (Lasix) 40 mg PO DAILY JESSE Last Admin: 08/05/17 10:09 Dose: 40 mg Hydralazine HCl (Apresoline) 10 mg IVP STAT JESSE Last Admin: 08/04/17 19:04 Dose: 10 mg Hydralazine HCl (Apresoline) 10 mg PO Q8H JESSE Last Admin: 08/05/17 10:40 Dose: 10 mg Nicardipine HCl 25 mg/ Sodium (Chloride) 250 mls @ 50 mls/hr IV .Q5H JESSE; 5 MG/ HR PRN Reason: Protocol Last Admin: 08/05/17 09:15 Dose: 10 mg/hr, 100 mls/hr Levetiracetam 500 mg/ Dextrose 105 mls @ 420 mls/hr IVPB Q12H JESSE Insulin Aspart (Novolog) 0 unit SC Q4 JESSE PRN Reason: Protocol Last Admin: 08/05/17 10:10 Dose: 4 unit Insulin Detemir (Levemir) 20 unit SC HS [facility] Isosorbide Dinitrate (Isordil) 10 mg PO BID JESSE Last Admin: 08/05/17 10:40 Dose: 10 mg Nitroglycerin (Nitrostat Sl Tab) 0.4 mg SL Q5M PRN PRN Reason: Shortness of Breath Last Admin: 08/04/17 18:50 Dose: 0.4 mg - Labs Labs: 08/05/17 06:00 08/05/17 06:00 PT 11.7 SECONDS (9.7-12.2) 08/04/17 21:06 INR 1.1 08/04/17 21:06 APTT 34 SECONDS (21-34) 08/04/17 21:06
[2017-08-05] MEDS ORDERED: Lidocaine Hydrochloride 10 ML INJ ONE (14:02)
--- NOTE | 2017-08-05 14:20 | PCM.IRPREO ---
Pre Procedure Note - History Proposed Procedure: Diagnostic Cerebral Angiogram - Pre Procedure Were any radiologic studies performed in the last 12 months: Yes List of radiologic studies performed: CT head and a CTA of the head and neck Was medical management performed in the past 24 months: Yes List of medical management performed: Mainstay of treatment has been manging HTN and treating his flash pulmonary edema Clinical indication for the procedure: Subarachnoid Bleed. CTA negative. Need to rule out any underlying vascular pathology that could pose a risk of re- bleedind. Have risks and benefits been explained to the patient: Yes Risks and benefits been explained to the patient: Allergic reaction, infection, groin site complications, renal damge, stroke with resultant persistant neruological deficits, complications from anastehsia (explained by the anasthesia team eric). Have alternatives to surgery explained to the patient as applicable: Yes ( Alternatives are repeating the CTA. DSA is the standard of care and the gold standard) - Allergies Allergies: Allergies No Known Allergies Allergy (Verified 05/14/15 06:15) - Physical Exam General Appearance: NEURO EXAM. AOx3, No dysarthria. No aphasia, speech fluent. No facial droop, T/U midline. PERRL, +right CN 6 palsy with inability to exo deviate right eye. +diplopia on horizontal gaze. No nystagmus. Moves all extremities, No drift. No gross sensory abnomalities. FNF normal B/L. gait deferred Vital Signs: Vital Signs 08/05/17 08/05/17 08/05/17 07:02 08:00 08:02 Pulse Rate 91 H 90 91 H Respiratory 19 22 21 Rate Blood Pressure 149/73 151/76 H O2 Sat by Pulse 99 98 99 Oximetry 08/05/17 08/05/17 08/05/17 09:00 09:02 10:00 Pulse Rate 94 H 93 H 90 Respiratory 13 21 16 Rate Blood Pressure 157/75 H O2 Sat by Pulse 100 100 100 Oximetry 08/05/17 08/05/17 08/05/17 10:02 10:09 11:00 Pulse Rate 90 91 H Respiratory 21 11 L Rate Blood Pressure 146/73 147/71 O2 Sat by Pulse 100 99 Oximetry 08/05/17 08/05/17 08/05/17 11:02 11:17 12:00 Pulse Rate 89 98 H 78 Respiratory 17 19 21 Rate Blood Pressure 150/73 160/79 H O2 Sat by Pulse 99 92 L 99 Oximetry 08/05/17 08/05/17 08/05/17 12:03 13:00 13:02 Pulse Rate 78 73 71 Respiratory 17 18 17 Rate Blood Pressure 117/67 107/68 O2 Sat by Pulse 99 100 Oximetry 08/05/17 13:38 Pulse Rate 73 Respiratory 13 Rate Blood Pressure 113/68 O2 Sat by Pulse Oximetry Neuro: WNL, Other - Impression Impression: 56 year old male with subarchnoid hemmoraghe, needs DSA to rule out underlying vascular lesion. Case discussed with the anastehsia team, given his poor EF (20-25%) and recent episode of flash pulmonary edema intubation and general ansthesia poses some risk. We will attempt to do the procedure with MAC , if we cannot, due to patient movment and discomfort we will switch to GA. - Date & Time Date: 08/05/17 Time: 14:19
[2017-08-05] MEDS ORDERED: Lidocaine 2% MPF (5 ml) Inj ONE (14:21)
[2017-08-05] MEDS ORDERED: Iodixanol 320 MG/ML 100 ML BOTTLE IV ONE (14:22)
--- NOTE | 2017-08-05 14:26 | CP.PCM.CON ---
History of Present Illness - History of Present Illness History of Present Illness: COMPREHENSIVE HISTORY & PHYSICAL EXAM HPI Patient is admitted in ICU with the diagnosis of subarachnoid and subdural hemorrhage with flash pulmonary edema. Patient while at work suddenly became unconscious and was brought to the emergency room. The CAT scan of the head showed subarachnoid and subdural hemorrhage involving pre-pontine and interpeduncular area and in the morning other posterior horns. Patient was brought to to the ICU and suddenly became short of breath and went into pulmonary edema. Patients blood pressure initially was 230/130 mmHg. With IV antihypertensive medication the blood pressure stabilized to 170/90. Patients pulmonary edema improved on 80 mg of Lasix. Patient was admitted in [facility] in 2016 for chest pain and CHF. Patient had a cardiac catheterization done which showed a left ventricle ejection fraction of 20-25% with normal coronary. [employer] Air Announcer was also consulted and patient was put on LifeVest and discharged home. Further cardiac evaluation is not known at this stage. On further review of chart patient was also noncompliant with some of the cardiac medication which is Coreg. PAST HIST. PERSONAL HIST: Smoking. N Alcohol. N Allergy N Travel_- . FAMILY HIST : ROS : Constitutional: Negative for weight change, chills, night sweats Eyes: Negative for redness, swelling, itching, discharge, vision changes, blurry vision, double vision, glaucoma, cataracts, Ears: Negative for hearing loss, ringing, , tinnitus, vertigo Nose: Negative for rhinorrhea, stuffiness, sniffing, itching, postnasal drip, discoloration, nasal congestion and epistaxis. Throat: Negative for throat clearing, sore throat, hoarseness, difficulty swallowing and difficulty speaking. Respiratory: Negative for cough, , sputum production, chest tightness, wheezing, pleuritic chest pain ,daytime somnolence, chronic cough, hemoptysis, snoring at night, Cardiovascular: Negative for chest pain, , Edema of legs, leg cramps, angina, claudication, , irregular heartbeat, Neurology change of mental status Gastrointestinal: Negative for difficulty swallowing, diarrhea, constipation, black stools, rectal bleeding, nausea, flatulence, reflux, poor appetite, changes in bowel habits, abdominal pain Genitourinary: Negative for frequent urination, hematuria, discharge, incontinence, urinary retention, frequent UTI, Psychiatric: Negative for depression, anxiety/panic, suicidal tendencies, Musculoskeletal: Negative for swollen joints, back pain, , neck pain, morning stiffness of joints, . Skin: Negative for rash, ulcers, itching, dry skin and pigmented lesions. P/E: Constitutional: Appears stated age and in no apparent distress. Head: Normocephalic. Ears: External ear canals patent without inflammation. Tympanic membranes intact with normal light reflex and landmark. Eyes: Pupils are central, bilaterally equal, symmetrical and reacts to light with normal movements and no icterus or pallor. Nose: External nares are patent. Mucosa is pink Mouth-Throat: Good general appearance and condition. No post-pharyngeal/oropharyngeal erythema and tonsillar hypertrophy. Good dental hygiene. Neck-Lymphatic: Neck is supple with normal ROM, no thyromegaly, lymph nodes or masses. JVD is normal with no carotid bruit. Lungs bilateral basal crackles Cardiovascular: S1 and S2 are normal with no murmurs, gallops and rub. GI Exam: No hepatomegaly. Abdomen is soft and non-tender. No Organomegaly , masses or hernias are evident and bowel sounds are normal and active. Neurology: Higher function and all cranial nerves intact, with no gross motor or sensory deficit. Superficial and deep reflexes are normal with downwards planters. No cerebellar deficit with normal gait. Musculoskeletal: No tender spots with normal curvature of the spine with no swelling or restricted ROM of the small and large joints. Extremities: Homans sign absent. Intact pulses with no pitting edema, calf tenderness or skin color changes. Skin: No rash, eruptions or abnormal skin pigmentation LAB/RADIOLOGY: ASSESMENT : Patient has an acute on chronic systolic heart failure with reduced ejection fraction probably precipitate by increase afterload. Subarachnoid, subdural hemorrhage secondary to possible vascular aneurysm or hypertensive bleed. 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 Nonobstructive coronary artery disease PLAN: Continue IV Lasix, hydralazine and isosorbide and Vasotec. Further neurological evaluation for vascular aneurysm. When stable patient will need evaluation for ICD Past Patient History - Infectious Disease Hx of Infectious Diseases: None - Tetanus Immunizations Tetanus Immunization: Unknown - Past Medical History & Family History Past Medical History?: Yes Past Family History: Reviewed and not pertinent - Past Social History Smoking Status: Former Smoker Chewing Tobacco Use: No Cigar Use: No Alcohol: < 2 Drinks/Day Drugs: Denies Home Situation {Lives}: Alone - CARDIAC Hx Hypertension: Yes - PULMONARY Hx Asthma: Yes Hx Chronic Obstructive Pulmonary Disease (COPD): Yes - NEUROLOGICAL Hx Neurological Disorder: No - HEENT Hx HEENT Problems: No - RENAL Hx Chronic Kidney Disease: No - ENDOCRINE/METABOLIC Hx Diabetes Mellitus Type 2: Yes (uncontrolled) - HEMATOLOGICAL/ONCOLOGICAL Hx Blood Disorders: No - INTEGUMENTARY Hx Dermatological Problems: No - MUSCULOSKELETAL/RHEUMATOLOGICAL Hx Musculoskeletal Disorders: No Hx Falls: No - GASTROINTESTINAL Hx Gastrointestinal Disorders: No Other/Comment: "liver problem" - GENITOURINARY/GYNECOLOGICAL Hx Genitourinary Disorders: No - PSYCHIATRIC Hx Substance Use: No - SURGICAL HISTORY Hx Appendectomy: Yes (1997) Hx Coronary Stent: Yes (1 stent placed 5 years ago) - ANESTHESIA Hx Anesthesia: Yes Hx Anesthesia Reactions: No Hx Malignant Hyperthermia: No Meds Allergies/Adverse Reactions: Allergies Allergy/AdvReac Type Severity Reaction Status Date / Time No Known Allergies Allergy Verified 05/14/15 06:15 - Medications Medications: Current Medications Acetylcysteine (Acetylcysteine 20%) 8 ml PO Q12 [facility] Stop: 08/06/17 22:01 Carvedilol (Coreg) 25 mg PO BID [facility] Enalapril Maleate (Vasotec) 20 mg PO DAILY [facility] Famotidine (Pepcid) 20 mg IVP DAILY [facility] Furosemide (Lasix) 40 mg PO DAILY [facility] Last Admin: 08/05/17 10:09 Dose: 40 mg Hydralazine HCl (Apresoline) 10 mg IVP STAT [facility] Last Admin: 08/04/17 19:04 Dose: 10 mg Hydralazine HCl (Apresoline) 10 mg PO Q8H [facility] Last Admin: 08/05/17 10:40 Dose: 10 mg Nicardipine HCl 25 mg/ Sodium (Chloride) 250 mls @ 50 mls/hr IV .Q5H JESSE; 5 MG/ HR PRN Reason: Protocol Last Admin: 08/05/17 09:15 Dose: 10 mg/hr, 100 mls/hr Levetiracetam 500 mg/ Dextrose 105 mls @ 420 mls/hr IVPB Q12H [facility] Insulin Aspart (Novolog) 0 unit SC Q4 JESSE PRN Reason: Protocol Last Admin: 08/05/17 10:10 Dose: 4 unit Insulin Detemir (Levemir) 20 unit SC HS JESSE Isosorbide Dinitrate (Isordil) 10 mg PO BID [facility] Last Admin: 08/05/17 10:40 Dose: 10 mg Nitroglycerin (Nitrostat Sl Tab) 0.4 mg SL Q5M PRN PRN Reason: Shortness of Breath Last Admin: 08/04/17 18:50 Dose: 0.4 mg Results - Vital Signs Recent Vital Signs: Last Vital Signs Temp 97.7 F 08/05/17 04:00 Pulse 73 08/05/17 13:38 Resp 13 08/05/17 13:38 BP 113/68 08/05/17 13:38 Pulse Ox 100 08/05/17 13:02 - Labs Result Diagrams: 08/05/17 06:00 08/05/17 06:00 Labs: Laboratory Results - last 24 hr 08/04/17 08/04/17 08/04/17 17:20 17:20 17:25 WBC 10.6 D RBC 4.05 L Hgb 12.5 Hct 35.5 MCV 87.8 D MCH 30.8 MCHC 35.1 RDW 13.6 Plt Count 239 MPV 9.0 Neut % (Auto) 76.7 H Lymph % (Auto) 16.9 L Avery % (Auto) 5.1 Eos % (Auto) 0.7 Baso % (Auto) 0.6 Neut # (Auto) 8.1 H Lymph # (Auto) 1.8 Avery # (Auto) 0.5 Eos # (Auto) 0.1 Baso # (Auto) 0.1 PT INR APTT Puncture Site pCO2 pO2 HCO3 ABG pH ABG Total CO2 ABG O2 Saturation ABG Base Excess ABG Hemoglobin ABG Carboxyhemoglobin POC ABG HHb (Measured) ABG Methemoglobin Davon Test A-a O2 Difference Respiratory Index Hgb O2 Saturation Liter Flow FiO2 Sodium 137 Potassium 3.8 Chloride 104 Carbon Dioxide 20 L Anion Gap 18 BUN 26 H Creatinine 1.5 Est GFR ( Amer) 58 Est GFR (Non-Af Amer) 48 POC Glucose (mg/dL) 413 H* Random Glucose 455 H* D Hemoglobin A1c Calcium 9.1 Phosphorus Magnesium Total Bilirubin 0.6 AST 65 H D ALT 48 Alkaline Phosphatase 169 H D Troponin I NT-Pro-B Natriuret Pep Total Protein 7.4 Albumin 3.7 Globulin 3.7 Albumin/Globulin Ratio 1.0 Triglycerides Cholesterol LDL Cholesterol Direct HDL Cholesterol Urine Color Urine Clarity Urine pH Ur Specific Norton Urine Protein Urine Glucose (UA) Urine Ketones Urine Blood Urine Nitrate Urine Bilirubin Urine Urobilinogen Ur Leukocyte Esterase Urine WBC (Auto) Urine RBC (Auto) Ur Squamous Epith Cells Amorphous Sediment Urine Bacteria 08/04/17 08/04/17 08/04/17 17:27 18:33 19:06 WBC RBC Hgb Hct MCV MCH MCHC RDW Plt Count MPV Neut % (Auto) Lymph % (Auto) Avery % (Auto) Eos % (Auto) Baso % (Auto) Neut # (Auto) Lymph # (Auto) Avery # (Auto) Eos # (Auto) Baso # (Auto) PT INR APTT Puncture Site pCO2 pO2 HCO3 ABG pH ABG Total CO2 ABG O2 Saturation ABG Base Excess ABG Hemoglobin ABG Carboxyhemoglobin POC ABG HHb (Measured) ABG Methemoglobin Davon Test A-a O2 Difference Respiratory Index Hgb O2 Saturation Liter Flow FiO2 Sodium Potassium Chloride Carbon Dioxide Anion Gap BUN Creatinine Est GFR ( Amer) Est GFR (Non-Af Amer) POC Glucose (mg/dL) 419 H* 349 H Random Glucose Hemoglobin A1c Calcium Phosphorus Magnesium Total Bilirubin AST ALT Alkaline Phosphatase Troponin I 0.0770 NT-Pro-B Natriuret Pep 8630 H Total Protein Albumin Globulin Albumin/Globulin Ratio Triglycerides Cholesterol LDL Cholesterol Direct HDL Cholesterol Urine Color Urine Clarity Urine pH Ur Specific [place] Urine Protein Urine Glucose (UA) Urine Ketones Urine Blood Urine Nitrate Urine Bilirubin Urine Urobilinogen Ur Leukocyte Esterase Urine WBC (Auto) Urine RBC (Auto) Ur Squamous Epith Cells Amorphous Sediment Urine Bacteria 08/04/17 08/04/17 08/04/17 20:32 21:06 21:14 WBC RBC Hgb Hct MCV MCH MCHC RDW Plt Count MPV Neut % (Auto) Lymph % (Auto) Avery % (Auto) Eos % (Auto) Baso % (Auto) Neut # (Auto) Lymph # (Auto) Avery # (Auto) Eos # (Auto) Baso # (Auto) PT 11.7 INR 1.1 APTT 34 Puncture Site Rba pCO2 31 L pO2 262 H HCO3 21.3 ABG pH 7.40 ABG Total CO2 20.2 L ABG O2 Saturation 100.1 H ABG Base Excess -4.6 L ABG Hemoglobin 12.3 ABG Carboxyhemoglobin 1.8 H POC ABG HHb (Measured) -0.1 L ABG Methemoglobin 1.3 Davon Test Pos A-a O2 Difference 412.0 Respiratory Index 1.6 Hgb O2 Saturation 97.1 Liter Flow 15.0 FiO2 100.0 Sodium Potassium Chloride Carbon Dioxide Anion Gap BUN Creatinine Est GFR ( Amer) Est GFR (Non-Af Amer) POC Glucose (mg/dL) 354 H Random Glucose Hemoglobin A1c Calcium Phosphorus Magnesium Total Bilirubin AST ALT Alkaline Phosphatase Troponin I NT-Pro-B Natriuret Pep Total Protein Albumin Globulin Albumin/Globulin Ratio Triglycerides Cholesterol LDL Cholesterol Direct HDL Cholesterol Urine Color Urine Clarity Urine pH Ur Specific [place] Urine Protein Urine Glucose (UA) Urine Ketones Urine Blood Urine Nitrate Urine Bilirubin Urine Urobilinogen Ur Leukocyte Esterase Urine WBC (Auto) Urine RBC (Auto) Ur Squamous Epith Cells Amorphous Sediment Urine Bacteria 08/04/17 08/05/17 08/05/17 23:45 06:00 06:00 WBC RBC Hgb Hct MCV MCH MCHC RDW Plt Count MPV Neut % (Auto) Lymph % (Auto) Avery % (Auto) Eos % (Auto) Baso % (Auto) Neut # (Auto) Lymph # (Auto) Avery # (Auto) Eos # (Auto) Baso # (Auto) PT INR APTT Puncture Site pCO2 pO2 HCO3 ABG pH ABG Total CO2 ABG O2 Saturation ABG Base Excess ABG Hemoglobin ABG Carboxyhemoglobin POC ABG HHb (Measured) ABG Methemoglobin Davon Test A-a O2 Difference Respiratory Index Hgb O2 Saturation Liter Flow FiO2 Sodium 141 Potassium 3.5 L Chloride 105 Carbon Dioxide 22 Anion Gap 18 BUN 30 H Creatinine 1.5 Est GFR ( Amer) 58 Est GFR (Non-Af Amer) 48 POC Glucose (mg/dL) 475 H* Random Glucose 333 H Hemoglobin A1c Calcium 8.6 Phosphorus 3.9 Magnesium 1.9 Total Bilirubin 0.6 AST 29 ALT 30 Alkaline Phosphatase 116 Troponin I 0.1170 NT-Pro-B Natriuret Pep Total Protein 6.7 Albumin 3.2 L Globulin 3.5 Albumin/Globulin Ratio 0.9 L Triglycerides 65 D Cholesterol 253 H LDL Cholesterol Direct 154 H HDL Cholesterol 82 H Urine Color Yellow Urine Clarity Hazy Urine pH 5.0 Ur Specific Norton 1.021 Urine Protein 2+ H Urine Glucose (UA) 3+ H Urine Ketones 1+ H Urine Blood 1+ H Urine Nitrate Negative Urine Bilirubin Negative Urine Urobilinogen Normal Ur Leukocyte Esterase Neg Urine WBC (Auto) 2 Urine RBC (Auto) 7 H Ur Squamous Epith Cells 2 Amorphous Sediment Occ H Urine Bacteria Rare 08/05/17 08/05/17 08/05/17 06:00 06:13 09:22 WBC 10.1 RBC 3.65 L Hgb 11.3 L Hct 32.2 L MCV 88.3 MCH 31.0 MCHC 35.1 RDW 14.2 Plt Count 224 MPV 9.4 Neut % (Auto) Lymph % (Auto) Avery % (Auto) Eos % (Auto) Baso % (Auto) Neut # (Auto) Lymph # (Auto) Avery # (Auto) Eos # (Auto) Baso # (Auto) PT INR APTT Puncture Site pCO2 pO2 HCO3 ABG pH ABG Total CO2 ABG O2 Saturation ABG Base Excess ABG Hemoglobin ABG Carboxyhemoglobin POC ABG HHb (Measured) ABG Methemoglobin Davon Test A-a O2 Difference Respiratory Index Hgb O2 Saturation Liter Flow FiO2 Sodium Potassium Chloride Carbon Dioxide Anion Gap BUN Creatinine Est GFR ( Amer) Est GFR (Non-Af Amer) POC Glucose (mg/dL) 343 H 254 H Random Glucose Hemoglobin A1c Calcium Phosphorus Magnesium Total Bilirubin AST ALT Alkaline Phosphatase Troponin I NT-Pro-B Natriuret Pep Total Protein Albumin Globulin Albumin/Globulin Ratio Triglycerides Cholesterol LDL Cholesterol Direct HDL Cholesterol Urine Color Urine Clarity Urine pH Ur Specific [place] Urine Protein Urine Glucose (UA) Urine Ketones Urine Blood Urine Nitrate Urine Bilirubin Urine Urobilinogen Ur Leukocyte Esterase Urine WBC (Auto) Urine RBC (Auto) Ur Squamous Epith Cells Amorphous Sediment Urine Bacteria 08/05/17 08/05/17 08/05/17 10:52 10:52 11:43 WBC RBC Hgb Hct MCV MCH MCHC RDW Plt Count MPV Neut % (Auto) Lymph % (Auto) Avery % (Auto) Eos % (Auto) Baso % (Auto) Neut # (Auto) Lymph # (Auto) Avery # (Auto) Eos # (Auto) Baso # (Auto) PT INR APTT Puncture Site pCO2 pO2 HCO3 ABG pH ABG Total CO2 ABG O2 Saturation ABG Base Excess ABG Hemoglobin ABG Carboxyhemoglobin POC ABG HHb (Measured) ABG Methemoglobin Davon Test A-a O2 Difference Respiratory Index Hgb O2 Saturation Liter Flow FiO2 Sodium Potassium Chloride Carbon Dioxide Anion Gap BUN Creatinine Est GFR ( Amer) Est GFR (Non-Af Amer) POC Glucose (mg/dL) 175 H Random Glucose Hemoglobin A1c 11.8 H D Calcium Phosphorus Magnesium Total Bilirubin AST ALT Alkaline Phosphatase Troponin I 0.1320 H* NT-Pro-B Natriuret Pep Total Protein Albumin Globulin Albumin/Globulin Ratio Triglycerides Cholesterol LDL Cholesterol Direct HDL Cholesterol Urine Color Urine Clarity Urine pH Ur Specific [place] Urine Protein Urine Glucose (UA) Urine Ketones Urine Blood Urine Nitrate Urine Bilirubin Urine Urobilinogen Ur Leukocyte Esterase Urine WBC (Auto) Urine RBC (Auto) Ur Squamous Epith Cells Amorphous Sediment Urine Bacteria
[2017-08-05] MEDS ORDERED: ceFAZolin 1 gm in NS 1 GM/100 ML BAG IVPB ONE (14:40)
--- NOTE | 2017-08-05 15:51 | CP.PCM.CON ---
History of Present Illness - History of Present Illness History of Present Illness: Neurology Consultation Note: Mr. Osuna is a 56-year-old man with a past medical history of HTN, DM, HLD, Cardiac disease s/p stent, cardiomyopthy, who is currently admitted for perimesencephalic subarachnoid hemorrhage. His initial presentation was severe headache and accelerated hypertension. He developed flash pulmonary edema and required management in the ICU. His pressures have been better controlled overnight. He continues to complain of a bifrontal headache and double vision. Review of Systems - Review of Systems All systems: reviewed and no additional remarkable complaints except Past Patient History - Infectious Disease Hx of Infectious Diseases: None - Tetanus Immunizations Tetanus Immunization: Unknown - Past Medical History & Family History Past Medical History?: Yes Past Family History: Reviewed and not pertinent - Past Social History Smoking Status: Former Smoker Chewing Tobacco Use: No Cigar Use: No Alcohol: < 2 Drinks/Day Drugs: Denies Home Situation {Lives}: Alone - CARDIAC Hx Cardiac Disorders: Yes (CARDIAC STENT ) Hx Hypertension: Yes - PULMONARY Hx Chronic Obstructive Pulmonary Disease (COPD): Yes - NEUROLOGICAL Hx Neurological Disorder: No - HEENT Hx HEENT Problems: No - RENAL Hx Chronic Kidney Disease: No - ENDOCRINE/METABOLIC Hx Diabetes Mellitus Type 2: Yes (uncontrolled) - HEMATOLOGICAL/ONCOLOGICAL Hx Blood Disorders: No - INTEGUMENTARY Hx Dermatological Problems: No - MUSCULOSKELETAL/RHEUMATOLOGICAL Hx Musculoskeletal Disorders: No Hx Falls: No - GASTROINTESTINAL Hx Gastrointestinal Disorders: No Other/Comment: "liver problem" - GENITOURINARY/GYNECOLOGICAL Hx Genitourinary Disorders: No - PSYCHIATRIC Hx Substance Use: No - SURGICAL HISTORY Hx Appendectomy: Yes (1997) Hx Coronary Stent: Yes (1 stent placed 5 years ago) - ANESTHESIA Hx Anesthesia: Yes Hx Anesthesia Reactions: No Hx Malignant Hyperthermia: No Meds Allergies/Adverse Reactions: Allergies Allergy/AdvReac Type Severity Reaction Status Date / Time No Known Allergies Allergy Verified 05/14/15 06:15 - Medications Medications: Current Medications Acetylcysteine (Acetylcysteine 20%) 8 ml PO Q12 [facility] Stop: 08/06/17 22:01 Carvedilol (Coreg) 25 mg PO BID [facility] Enalapril Maleate (Vasotec) 20 mg PO DAILY [facility] Famotidine (Pepcid) 20 mg IVP DAILY [facility] Furosemide (Lasix) 40 mg PO DAILY [facility] Last Admin: 08/05/17 10:09 Dose: 40 mg Hydralazine HCl (Apresoline) 10 mg IVP STAT [facility] Last Admin: 08/04/17 19:04 Dose: 10 mg Hydralazine HCl (Apresoline) 10 mg PO Q8H [facility] Last Admin: 08/05/17 10:40 Dose: 10 mg Nicardipine HCl 25 mg/ Sodium (Chloride) 250 mls @ 50 mls/hr IV .Q5H [facility]; 5 MG/ HR PRN Reason: Protocol Last Admin: 08/05/17 15:21 Dose: Not Given Levetiracetam 500 mg/ Dextrose 105 mls @ 420 mls/hr IVPB Q12H [facility] Insulin Aspart (Novolog) 0 unit SC Q4 [facility] PRN Reason: Protocol Last Admin: 08/05/17 10:10 Dose: 4 unit Insulin Detemir (Levemir) 20 unit SC HS [facility] Isosorbide Dinitrate (Isordil) 10 mg PO BID [facility] Last Admin: 08/05/17 10:40 Dose: 10 mg Nitroglycerin (Nitrostat Sl Tab) 0.4 mg SL Q5M PRN PRN Reason: Shortness of Breath Last Admin: 08/04/17 18:50 Dose: 0.4 mg Physical Exam - Neurological Exam Neurological exam: Alert, Oriented x3, Reflexes Normal Additional comments: Lateral rectus, 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 Diplopia worse on right lateral gaze. Coordination is slightly impaired on the right side. Otherwise, strength is symmetrical, sensation is intact, gait was not assessed, reflexes were normal. Results - Vital Signs Recent Vital Signs: Last Vital Signs Temp 98.1 F 08/05/17 12:00 Pulse 73 08/05/17 13:38 Resp 13 08/05/17 13:38 BP 113/68 08/05/17 13:38 Pulse Ox 100 08/05/17 13:02 - Labs Result Diagrams: 08/05/17 06:00 08/05/17 06:00 Labs: Laboratory Results - last 24 hr 08/04/17 08/04/17 08/04/17 17:20 17:20 17:25 WBC 10.6 D RBC 4.05 L Hgb 12.5 Hct 35.5 MCV 87.8 D MCH 30.8 MCHC 35.1 RDW 13.6 Plt Count 239 MPV 9.0 Neut % (Auto) 76.7 H Lymph % (Auto) 16.9 L Rowan % (Auto) 5.1 Eos % (Auto) 0.7 Baso % (Auto) 0.6 Neut # (Auto) 8.1 H Lymph # (Auto) 1.8 Rowan # (Auto) 0.5 Eos # (Auto) 0.1 Baso # (Auto) 0.1 PT INR APTT Puncture Site pCO2 pO2 HCO3 ABG pH ABG Total CO2 ABG O2 Saturation ABG Base Excess ABG Hemoglobin ABG Carboxyhemoglobin POC ABG HHb (Measured) ABG Methemoglobin Davon Test A-a O2 Difference Respiratory Index Hgb O2 Saturation Liter Flow FiO2 Sodium 137 Potassium 3.8 Chloride 104 Carbon Dioxide 20 L Anion Gap 18 BUN 26 H Creatinine 1.5 Est GFR ( Amer) 58 Est GFR (Non-Af Amer) 48 POC Glucose (mg/dL) 413 H* Random Glucose 455 H* D Hemoglobin A1c Calcium 9.1 Phosphorus Magnesium Total Bilirubin 0.6 AST 65 H D ALT 48 Alkaline Phosphatase 169 H D Troponin I NT-Pro-B Natriuret Pep Total Protein 7.4 Albumin 3.7 Globulin 3.7 Albumin/Globulin Ratio 1.0 Triglycerides Cholesterol LDL Cholesterol Direct HDL Cholesterol Urine Color Urine Clarity Urine pH Ur Specific [place] Urine Protein Urine Glucose (UA) Urine Ketones Urine Blood Urine Nitrate Urine Bilirubin Urine Urobilinogen Ur Leukocyte Esterase Urine WBC (Auto) Urine RBC (Auto) Ur Squamous Epith Cells Amorphous Sediment Urine Bacteria 08/04/17 08/04/17 08/04/17 17:27 18:33 19:06 WBC RBC Hgb Hct MCV MCH MCHC RDW Plt Count MPV Neut % (Auto) Lymph % (Auto) Rowan % (Auto) Eos % (Auto) Baso % (Auto) Neut # (Auto) Lymph # (Auto) Rowan # (Auto) Eos # (Auto) Baso # (Auto) PT INR APTT Puncture Site pCO2 pO2 HCO3 ABG pH ABG Total CO2 ABG O2 Saturation ABG Base Excess ABG Hemoglobin ABG Carboxyhemoglobin POC ABG HHb (Measured) ABG Methemoglobin Davon Test A-a O2 Difference Respiratory Index Hgb O2 Saturation Liter Flow FiO2 Sodium Potassium Chloride Carbon Dioxide Anion Gap BUN Creatinine Est GFR ( Amer) Est GFR (Non-Af Amer) POC Glucose (mg/dL) 419 H* 349 H Random Glucose Hemoglobin A1c Calcium Phosphorus Magnesium Total Bilirubin AST ALT Alkaline Phosphatase Troponin I 0.0770 NT-Pro-B Natriuret Pep 8630 H Total Protein Albumin Globulin Albumin/Globulin Ratio Triglycerides Cholesterol LDL Cholesterol Direct HDL Cholesterol Urine Color Urine Clarity Urine pH Ur Specific [place] Urine Protein Urine Glucose (UA) Urine Ketones Urine Blood Urine Nitrate Urine Bilirubin Urine Urobilinogen Ur Leukocyte Esterase Urine WBC (Auto) Urine RBC (Auto) Ur Squamous Epith Cells Amorphous Sediment Urine Bacteria 08/04/17 08/04/17 08/04/17 20:32 21:06 21:14 WBC RBC Hgb Hct MCV MCH MCHC RDW Plt Count MPV Neut % (Auto) Lymph % (Auto) Rowan % (Auto) Eos % (Auto) Baso % (Auto) Neut # (Auto) Lymph # (Auto) Rowan # (Auto) Eos # (Auto) Baso # (Auto) PT 11.7 INR 1.1 APTT 34 Puncture Site Rba pCO2 31 L pO2 262 H HCO3 21.3 ABG pH 7.40 ABG Total CO2 20.2 L ABG O2 Saturation 100.1 H ABG Base Excess -4.6 L ABG Hemoglobin 12.3 ABG Carboxyhemoglobin 1.8 H POC ABG HHb (Measured) -0.1 L ABG Methemoglobin 1.3 Davon Test Pos A-a O2 Difference 412.0 Respiratory Index 1.6 Hgb O2 Saturation 97.1 Liter Flow 15.0 FiO2 100.0 Sodium Potassium Chloride Carbon Dioxide Anion Gap BUN Creatinine Est GFR ( Amer) Est GFR (Non-Af Amer) POC Glucose (mg/dL) 354 H Random Glucose Hemoglobin A1c Calcium Phosphorus Magnesium Total Bilirubin AST ALT Alkaline Phosphatase Troponin I NT-Pro-B Natriuret Pep Total Protein Albumin Globulin Albumin/Globulin Ratio Triglycerides Cholesterol LDL Cholesterol Direct HDL Cholesterol Urine Color Urine Clarity Urine pH Ur Specific [place] Urine Protein Urine Glucose (UA) Urine Ketones Urine Blood Urine Nitrate Urine Bilirubin Urine Urobilinogen Ur Leukocyte Esterase Urine WBC (Auto) Urine RBC (Auto) Ur Squamous Epith Cells Amorphous Sediment Urine Bacteria 08/04/17 08/05/17 08/05/17 23:45 06:00 06:00 WBC RBC Hgb Hct MCV MCH MCHC RDW Plt Count MPV Neut % (Auto) Lymph % (Auto) Rowan % (Auto) Eos % (Auto) Baso % (Auto) Neut # (Auto) Lymph # (Auto) Rowan # (Auto) Eos # (Auto) Baso # (Auto) PT INR APTT Puncture Site pCO2 pO2 HCO3 ABG pH ABG Total CO2 ABG O2 Saturation ABG Base Excess ABG Hemoglobin ABG Carboxyhemoglobin POC ABG HHb (Measured) ABG Methemoglobin Davon Test A-a O2 Difference Respiratory Index Hgb O2 Saturation Liter Flow FiO2 Sodium 141 Potassium 3.5 L Chloride 105 Carbon Dioxide 22 Anion Gap 18 BUN 30 H Creatinine 1.5 Est GFR ( Amer) 58 Est GFR (Non-Af Amer) 48 POC Glucose (mg/dL) 475 H* Random Glucose 333 H Hemoglobin A1c Calcium 8.6 Phosphorus 3.9 Magnesium 1.9 Total Bilirubin 0.6 AST 29 ALT 30 Alkaline Phosphatase 116 Troponin I 0.1170 NT-Pro-B Natriuret Pep Total Protein 6.7 Albumin 3.2 L Globulin 3.5 Albumin/Globulin Ratio 0.9 L Triglycerides 65 D Cholesterol 253 H LDL Cholesterol Direct 154 H HDL Cholesterol 82 H Urine Color Yellow Urine Clarity Hazy Urine pH 5.0 Ur Specific [place] 1.021 Urine Protein 2+ H Urine Glucose (UA) 3+ H Urine Ketones 1+ H Urine Blood 1+ H Urine Nitrate Negative Urine Bilirubin Negative Urine Urobilinogen Normal Ur Leukocyte Esterase Neg Urine WBC (Auto) 2 Urine RBC (Auto) 7 H Ur Squamous Epith Cells 2 Amorphous Sediment Occ H Urine Bacteria Rare 08/05/17 08/05/17 08/05/17 06:00 06:13 09:22 WBC 10.1 RBC 3.65 L Hgb 11.3 L Hct 32.2 L MCV 88.3 MCH 31.0 MCHC 35.1 RDW 14.2 Plt Count 224 MPV 9.4 Neut % (Auto) Lymph % (Auto) Rowan % (Auto) Eos % (Auto) Baso % (Auto) Neut # (Auto) Lymph # (Auto) Rowan # (Auto) Eos # (Auto) Baso # (Auto) PT INR APTT Puncture Site pCO2 pO2 HCO3 ABG pH ABG Total CO2 ABG O2 Saturation ABG Base Excess ABG Hemoglobin ABG Carboxyhemoglobin POC ABG HHb (Measured) ABG Methemoglobin Davon Test A-a O2 Difference Respiratory Index Hgb O2 Saturation Liter Flow FiO2 Sodium Potassium Chloride Carbon Dioxide Anion Gap BUN Creatinine Est GFR ( Amer) Est GFR (Non-Af Amer) POC Glucose (mg/dL) 343 H 254 H Random Glucose Hemoglobin A1c Calcium Phosphorus Magnesium Total Bilirubin AST ALT Alkaline Phosphatase Troponin I NT-Pro-B Natriuret Pep Total Protein Albumin Globulin Albumin/Globulin Ratio Triglycerides Cholesterol LDL Cholesterol Direct HDL Cholesterol Urine Color Urine Clarity Urine pH Ur Specific [place] Urine Protein Urine Glucose (UA) Urine Ketones Urine Blood Urine Nitrate Urine Bilirubin Urine Urobilinogen Ur Leukocyte Esterase Urine WBC (Auto) Urine RBC (Auto) Ur Squamous Epith Cells Amorphous Sediment Urine Bacteria 08/05/17 08/05/17 08/05/17 10:52 10:52 11:43 WBC RBC Hgb Hct MCV MCH MCHC RDW Plt Count MPV Neut % (Auto) Lymph % (Auto) Rowan % (Auto) Eos % (Auto) Baso % (Auto) Neut # (Auto) Lymph # (Auto) Rowan # (Auto) Eos # (Auto) Baso # (Auto) PT INR APTT Puncture Site pCO2 pO2 HCO3 ABG pH ABG Total CO2 ABG O2 Saturation ABG Base Excess ABG Hemoglobin ABG Carboxyhemoglobin POC ABG HHb (Measured) ABG Methemoglobin Davon Test A-a O2 Difference Respiratory Index Hgb O2 Saturation Liter Flow FiO2 Sodium Potassium Chloride Carbon Dioxide Anion Gap BUN Creatinine Est GFR ( Amer) Est GFR (Non-Af Amer) POC Glucose (mg/dL) 175 H Random Glucose Hemoglobin A1c 11.8 H D Calcium Phosphorus Magnesium Total Bilirubin AST ALT Alkaline Phosphatase Troponin I 0.1320 H* NT-Pro-B Natriuret Pep Total Protein Albumin Globulin Albumin/Globulin Ratio Triglycerides Cholesterol LDL Cholesterol Direct HDL Cholesterol Urine Color Urine Clarity Urine pH Ur Specific [place] Urine Protein Urine Glucose (UA) Urine Ketones Urine Blood Urine Nitrate Urine Bilirubin Urine Urobilinogen Ur Leukocyte Esterase Urine WBC (Auto) Urine RBC (Auto) Ur Squamous Epith Cells Amorphous Sediment Urine Bacteria Assessment & Plan (1) Subarachnoid hemorrhage Assessment and Plan: The patient was evaluated by neurointerventional and is scheduled for a diagnostic cerebral angiogram to evaluate for aneurysms. BP recommendations per neurointerventional. Keep HOB elevated to 40 degrees. Avoid antiplatelet or anticoagulant agents. Avoid fever or hyperglycemia. Status: Acute Priority: High (2) Pulmonary edema Status: Acute (3) Chronic congestive heart failure Status: Acute
--- NOTE | 2017-08-05 15:55 | PCM.OP ---
Operative Report - Operative Report Date of Surgery/Procedure: 08/05/17 Time of Surgery/Procedure: 14:00 Surgeon: Dr. Katie MD [employer]: Sherry Anesthesia/Sedation: MAC with anasthesia present Pre-Operative Diagnosis: SAH Post-Operative Diagnosis: SAH Indication for Surgery: SAH Operative Findings: No source for the patient's bleed found. No aneurysm, no AVM, no shunting lesions observed. Procedure/Operation Description: Diagnostic Cerebral Angiogram Estimated Blood Loss: minimal Blood Replaced: n/a Sponge/Instrument Count: n/a. All catheters and decvices removed. Right groin closed with a 6 bengali angioseal vascular closure device. Drains: none Complications: none Specimen: none Discharge & Condition: Must lay flat for 3.5 hours, cannot move right leg. distal pulses and groin checks as per protocol.
[2017-08-05] MEDS: Insulin Detemir 100 units/ml Vial (Levemir) SC SCH (21:25)
[2017-08-06] MEDS: (Novolog) Insulin Aspart, Recombinant 100 u/ml 10 ml vial SC SCH ×6 (04:00→21:45)
[2017-08-06 06:36] LABS: BASO # 0.1 K/uL (0.0-0.2); BASO % 0.7 % (0.0-2.0); EOS # 0.1 K/uL (0.0-0.7); EOS % 1.6 % (0.0-4.0); HEMOGLOBIN 10.3 g/dL (12.0-18.0); LYMPH # 2.1 K/uL (1.0-4.3); LYMPH % 21.7 % (20.0-40.0); MEAN CELL VOLUME 88.5 fL (80.0-94.0); MEAN CORPUSCULAR HEMOGLOBIN 30.5 pg (27.0-31.0); MEAN CORPUSCULAR HGB CONC 34.4 g/dL (33.0-37.0); MEAN PLATELET VOLUME 8.9 fL (7.2-11.7); MONO # 0.7 K/uL (0.0-0.8); NEUT # 6.6 K/uL (1.8-7.0); RBC 3.39 Mil/uL (4.40-5.90); RED CELL DISTRIBUTION WIDTH 14.6 % (11.5-14.5); WHITE BLOOD COUNT 9.5 K/uL (4.8-10.8)
[2017-08-06 06:53] LABS: ALB/GLOB RATIO 0.9 (1.0-2.1); ALBUMIN 2.7 g/dL (3.5-5.0); ALT/SGPT 31 U/L (21-72); AST/SGOT 25 U/L (17-59); BLOOD UREA NITROGEN 27 mg/dL (9-20); CALCIUM 7.8 mg/dl (8.6-10.4); GFR AFRICAN-AMERICAN > 60; GFR NON-AFRICAN AMERICAN 52
--- NOTE | 2017-08-06 07:24 | CP.PCM.PN ---
Subjective - Date & Time of Evaluation Date of Evaluation: 08/06/17 Time of Evaluation: 07:22 - Subjective Subjective: Mr. Osuna was seen and examined at the bedside in ICU. He remains alert, oriented in all spheres. He denies any headache, but has diplopia when both eyes are open. 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 Diplopia worse on right lateral gaze. Coordination is slightly impaired on the right side. Otherwise, strength is symmetrical, sensation is intact, gait was not assessed, reflexes were normal. He had cerebral angiogram yesterday with no source for the patient's bleed found. No aneurysm, no AVM, no shunting lesions observed. Right femoral area no s/s hematoma, soft with no tenderness noted. There was no untoward events overnight. Objective - Vital Signs/Intake and Output Vital Signs (last 24 hours): Temp Pulse Resp BP Pulse Ox 97.5 F L 71 24 141/93 H 99 08/06/17 04:00 08/06/17 05:01 08/06/17 05:01 08/06/17 05:01 08/06/17 05:01 Intake and Output: 08/06/17 08/06/17 06:59 18:59 Intake Total 1060 Output Total 0 Balance 1060 - Medications Medications: Current Medications Acetylcysteine (Acetylcysteine 20%) 8 ml PO Q12 [facility] Stop: 08/06/17 22:01 Last Admin: 08/05/17 23:20 Dose: 8 ml Carvedilol (Coreg) 25 mg PO BID [facility] Last Admin: 08/05/17 19:06 Dose: 25 mg Enalapril Maleate (Vasotec) 20 mg PO DAILY [facility] Famotidine (Pepcid) 20 mg PO DAILY [facility] Furosemide (Lasix) 40 mg PO DAILY [facility] Last Admin: 08/05/17 10:09 Dose: 40 mg Hydralazine HCl (Apresoline) 10 mg IVP STAT [facility] Last Admin: 08/04/17 19:04 Dose: 10 mg Hydralazine HCl (Apresoline) 10 mg PO Q8H [facility] Last Admin: 08/06/17 03:00 Dose: 10 mg Levetiracetam 500 mg/ Dextrose 105 mls @ 420 mls/hr IVPB Q12H [facility] Last Admin: 08/05/17 21:35 Dose: 420 mls/hr Insulin Aspart (Novolog) 0 unit SC Q4 [facility] PRN Reason: Protocol Last Admin: 08/06/17 04:00 Dose: Not Given Insulin Detemir (Levemir) [address] [facility] Last Admin: 08/05/17 21:25 Dose: 20 unit Isosorbide Dinitrate (Isordil) 10 mg PO BID [facility] Last Admin: 08/05/17 19:01 Dose: 10 mg Nitroglycerin (Nitrostat Sl Tab) 0.4 mg SL Q5M PRN PRN Reason: Shortness of Breath Last Admin: 08/04/17 18:50 Dose: 0.4 mg Rosuvastatin Calcium (Crestor) [address] 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 Diplopia worse on right lateral gaze. Coordination is slightly impaired on the right side. 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 CN 2-12 are normal. Diplopia worse on right lateral gaze. Coordination is slightly impaired on the right side. Assessment and Plan (1) Subarachnoid hemorrhage Assessment & Plan: Case discussed with Dr. Roque, continue all current medical regimen including neurointerventionalist orders. Recommend blood pressure and glycemic control, normothermic, head of bed elevated, and avoiding antiplatelet or anticoagulant agents at this time. Recommend repeat CT scan of the head without contrast this am to evaluate subarachnoid hemorrhage. Status: Acute
--- NOTE | 2017-08-06 10:34 | CP.CCUPN ---
"<LucasmaralJerod - Last Filed: 08/06/17 10:56> CCU Subjective - Physician Review Subjective (Free Text): Patient seen and examined at bedside. No overnight events reported. Patient still complains of blurry vision (Improved), and headache (Improve). Patient denies any fever, chills, SOB, abdominal pain, nausea, vomiting, change sin bowel habits or urinary symptoms. CCU Objective - Vital Signs / Intake & Output Vital Signs (Last 4 hours): Vital Signs Pulse Resp BP Pulse Ox 08/06/17 09:48 159/99 H 08/06/17 09:47 159/99 H 08/06/17 09:46 159/99 H 08/06/17 08:01 71 16 146/91 H 100 08/06/17 07:01 74 26 H 147/93 H 100 Intake and Output (Last 8hrs): Intake & Output 08/05/17 08/06/17 08/06/17 22:59 06:59 14:59 Intake Total 800 480 Output Total 700 400 0 Balance 100 80 0 Weight 180 lb 15.992 oz Intake: IV 100 Intake, IV Amount 100 Left Antecubital 100 Right Antecubital 0 Oral 600 480 Output: Urine 700 400 0 Urine, Voided 700 400 0 Other: # Voids Urine, Voided 1 - Physical Exam Head: Positive for: Atraumatic, Normocephalic Pupils: Positive for: PERRL Extroacular Muscles: Positive for: EOMI Conjunctiva: Positive for: Normal Mouth: Positive for: Moist Mucous Membranes Respiratory/Chest: Positive for: Clear to Auscultation Cardiovascular: Positive for: Regular Rate and Rhythm, Normal S1, S2 Abdomen: Positive for: Normal Bowel Sounds. Negative for: Tenderness Upper Extremity: Positive for: Normal Inspection Lower Extremity: Positive for: Normal Inspection Neurological: Positive for: GCS=15, CN II-XII Intact, Motor Func Grossly Intact , Normal Sensory Function Psychiatric: Positive for: Alert, Oriented x 3, Normal Affect, Normal Mood - Medications Active Medications: Active Medications Generic Name Dose Route Start Last Admin Trade Name Freq PRN Reason Stop Dose Admin Acetylcysteine 8 ml 08/05/17 10:45 08/05/17 23:20 Acetylcysteine 20% PO 08/06/17 22:01 8 ml Q12 JESSE Administration Carvedilol 25 mg 08/05/17 18:00 08/06/17 09:48 Coreg PO 25 mg BID JESSE Administration Enalapril Maleate 20 mg 08/06/17 10:00 08/06/17 09:46 Vasotec PO 20 mg DAILY JESSE Administration Famotidine 20 mg 08/06/17 10:00 08/06/17 09:52 Pepcid PO 20 mg DAILY JESSE Administration Furosemide 40 mg 08/05/17 10:00 08/06/17 09:47 Lasix PO 40 mg DAILY JESSE Administration Hydralazine HCl 10 mg 08/04/17 19:15 08/04/17 19:04 Apresoline IVP 10 mg STAT JESSE Administration Hydralazine HCl 10 mg 08/05/17 10:00 08/06/17 09:47 Apresoline PO 10 mg Q8H JESSE Administration Levetiracetam 500 mg/ Dextrose 105 mls @ 420 mls/hr 08/05/17 10:00 08/06/17 09:43 IVPB 420 mls/hr Q12H JESSE Administration Insulin Aspart 0 unit 08/06/17 11:30 Novolog SC ACHS [facility] Protocol Insulin Detemir 20 unit 08/05/17 09:12 08/05/17 21:25 Levemir SC 20 unit HS JESSE Administration Isosorbide Dinitrate 10 mg 08/05/17 10:00 08/06/17 09:46 Isordil PO 10 mg BID JESSE Administration Nitroglycerin 0.4 mg 08/04/17 19:03 08/04/17 18:50 Nitrostat Sl Tab SL 0.4 mg Q5M PRN Administration Shortness of Breath Rosuvastatin Calcium 20 mg 08/05/17 22:00 08/05/17 21:25 Crestor PO 20 mg HS JESSE Administration - Patient Studies Lab Studies: Lab Studies 08/06/17 08/06/17 08/06/17 Range/Units 07:34 06:23 06:23 WBC 9.5 (4.8-10.8) K/uL RBC 3.39 L (4.40-5.90) Mil/uL Hgb 10.3 L (12.0-18.0) g/dL Hct 30.0 L (35.0-51.0) % MCV 88.5 (80.0-94.0) fL MCH 30.5 (27.0-31.0) pg MCHC 34.4 (33.0-37.0) g/dL RDW 14.6 H (11.5-14.5) % Plt Count 266 (130-400) K/uL MPV 8.9 (7.2-11.7) fL Neut % (Auto) 69.0 (50.0-75.0) % Lymph % (Auto) 21.7 (20.0-40.0) % [place] % (Auto) 7.0 (0.0-10.0) % Eos % (Auto) 1.6 (0.0-4.0) % Baso % (Auto) 0.7 (0.0-2.0) % Neut # (Auto) 6.6 (1.8-7.0) K/uL Lymph # (Auto) 2.1 (1.0-4.3) K/uL [place] # (Auto) 0.7 (0.0-0.8) K/uL Eos # (Auto) 0.1 (0.0-0.7) K/uL Baso # (Auto) 0.1 (0.0-0.2) K/uL Sodium 139 (132-148) mmol/L Potassium 3.6 (3.6-5.2) mmol/L Chloride 108 H (98-107) mmol/L Carbon Dioxide 21 L (22-30) mmol/L Anion Gap 14 (10-20) BUN 27 H (9-20) mg/dL Creatinine 1.4 (0.8-1.5) mg/dL Est GFR ( Amer) > 60 Est GFR (Non-Af Amer) 52 POC Glucose (mg/dL) 81 (65-110) mg/dL Random Glucose 89 (75-110) mg/dL Hemoglobin A1c (4.2-6.5) % Calcium 7.8 L (8.6-10.4) mg/dl Phosphorus 4.0 (2.5-4.5) mg/dL Magnesium 1.8 (1.6-2.3) mg/dL Total Bilirubin 0.4 (0.2-1.3) mg/dL AST 25 (17-59) U/L ALT 31 (21-72) U/L Alkaline Phosphatase 89 (38-126) U/L Troponin I (0.00-0.120) ng/mL Total Protein 5.9 L (6.3-8.3) g/dL Albumin 2.7 L (3.5-5.0) g/dL Globulin 3.2 (2.2-3.9) gm/dL Albumin/Globulin Ratio 0.9 L (1.0-2.1) 08/06/17 08/05/17 08/05/17 Range/Units 04:38 23:42 20:07 WBC (4.8-10.8) K/uL RBC (4.40-5.90) Mil/uL Hgb (12.0-18.0) g/dL Hct (35.0-51.0) % MCV (80.0-94.0) fL MCH (27.0-31.0) pg MCHC (33.0-37.0) g/dL RDW (11.5-14.5) % Plt Count (130-400) K/uL MPV (7.2-11.7) fL Neut % (Auto) (50.0-75.0) % Lymph % (Auto) (20.0-40.0) % [place] % (Auto) (0.0-10.0) % Eos % (Auto) (0.0-4.0) % Baso % (Auto) (0.0-2.0) % Neut # (Auto) (1.8-7.0) K/uL Lymph # (Auto) (1.0-4.3) K/uL [place] # (Auto) (0.0-0.8) K/uL Eos # (Auto) (0.0-0.7) K/uL Baso # (Auto) (0.0-0.2) K/uL Sodium (132-148) mmol/L Potassium (3.6-5.2) mmol/L Chloride (98-107) mmol/L Carbon Dioxide (22-30) mmol/L Anion Gap (10-20) BUN (9-20) mg/dL Creatinine (0.8-1.5) mg/dL Est GFR ( Amer) Est GFR (Non-Af Amer) POC Glucose (mg/dL) 80 186 H 262 H (65-110) mg/dL Random Glucose (75-110) mg/dL Hemoglobin A1c (4.2-6.5) % Calcium (8.6-10.4) mg/dl Phosphorus (2.5-4.5) mg/dL Magnesium (1.6-2.3) mg/dL Total Bilirubin (0.2-1.3) mg/dL AST (17-59) U/L ALT (21-72) U/L Alkaline Phosphatase (38-126) U/L Troponin I (0.00-0.120) ng/mL Total Protein (6.3-8.3) g/dL Albumin (3.5-5.0) g/dL Globulin (2.2-3.9) gm/dL Albumin/Globulin Ratio (1.0-2.1) 08/05/17 08/05/17 08/05/17 Range/Units 17:13 16:19 11:43 WBC (4.8-10.8) K/uL RBC (4.40-5.90) Mil/uL Hgb (12.0-18.0) g/dL Hct (35.0-51.0) % MCV (80.0-94.0) fL MCH (27.0-31.0) pg MCHC (33.0-37.0) g/dL RDW (11.5-14.5) % Plt Count (130-400) K/uL MPV (7.2-11.7) fL Neut % (Auto) (50.0-75.0) % Lymph % (Auto) (20.0-40.0) % [place] % (Auto) (0.0-10.0) % Eos % (Auto) (0.0-4.0) % Baso % (Auto) (0.0-2.0) % Neut # (Auto) (1.8-7.0) K/uL Lymph # (Auto) (1.0-4.3) K/uL [place] # (Auto) (0.0-0.8) K/uL Eos # (Auto) (0.0-0.7) K/uL Baso # (Auto) (0.0-0.2) K/uL Sodium (132-148) mmol/L Potassium (3.6-5.2) mmol/L Chloride (98-107) mmol/L Carbon Dioxide (22-30) mmol/L Anion Gap (10-20) BUN (9-20) mg/dL Creatinine (0.8-1.5) mg/dL Est GFR ( Amer) Est GFR (Non-Af Amer) POC Glucose (mg/dL) 195 H 150 H 175 H (65-110) mg/dL Random Glucose (75-110) mg/dL Hemoglobin A1c (4.2-6.5) % Calcium (8.6-10.4) mg/dl Phosphorus (2.5-4.5) mg/dL Magnesium (1.6-2.3) mg/dL Total Bilirubin (0.2-1.3) mg/dL AST (17-59) U/L ALT (21-72) U/L Alkaline Phosphatase (38-126) U/L Troponin I (0.00-0.120) ng/mL Total Protein (6.3-8.3) g/dL Albumin (3.5-5.0) g/dL Globulin (2.2-3.9) gm/dL Albumin/Globulin Ratio (1.0-2.1) 08/05/17 08/05/17 Range/Units 10:52 10:52 WBC (4.8-10.8) K/uL RBC (4.40-5.90) Mil/uL Hgb (12.0-18.0) g/dL Hct (35.0-51.0) % MCV (80.0-94.0) fL MCH (27.0-31.0) pg MCHC (33.0-37.0) g/dL RDW (11.5-14.5) % Plt Count (130-400) K/uL MPV (7.2-11.7) fL Neut % (Auto) (50.0-75.0) % Lymph % (Auto) (20.0-40.0) % [place] % (Auto) (0.0-10.0) % Eos % (Auto) (0.0-4.0) % Baso % (Auto) (0.0-2.0) % Neut # (Auto) (1.8-7.0) K/uL Lymph # (Auto) (1.0-4.3) K/uL [place] # (Auto) (0.0-0.8) K/uL Eos # (Auto) (0.0-0.7) K/uL Baso # (Auto) (0.0-0.2) K/uL Sodium (132-148) mmol/L Potassium (3.6-5.2) mmol/L Chloride (98-107) mmol/L Carbon Dioxide (22-30) mmol/L Anion Gap (10-20) BUN (9-20) mg/dL Creatinine (0.8-1.5) mg/dL Est GFR ( Amer) Est GFR (Non-Af Amer) POC Glucose (mg/dL) (65-110) mg/dL Random Glucose (75-110) mg/dL Hemoglobin A1c 11.8 H D (4.2-6.5) % Calcium (8.6-10.4) mg/dl Phosphorus (2.5-4.5) mg/dL Magnesium (1.6-2.3) mg/dL Total Bilirubin (0.2-1.3) mg/dL AST (17-59) U/L ALT (21-72) U/L Alkaline Phosphatase (38-126) U/L Troponin I 0.1320 H* (0.00-0.120) ng/mL Total Protein (6.3-8.3) g/dL Albumin (3.5-5.0) g/dL Globulin (2.2-3.9) gm/dL Albumin/Globulin Ratio (1.0-2.1) Laboratory Results - last 24 hr 08/05/17 08/05/17 08/05/17 10:52 10:52 11:43 WBC RBC Hgb Hct MCV MCH MCHC RDW Plt Count MPV Neut % (Auto) Lymph % (Auto) [place] % (Auto) Eos % (Auto) Baso % (Auto) Neut # (Auto) Lymph # (Auto) [place] # (Auto) Eos # (Auto) Baso # (Auto) Sodium Potassium Chloride Carbon Dioxide Anion Gap BUN Creatinine Est GFR ( Amer) Est GFR (Non-Af Amer) POC Glucose (mg/dL) 175 H Random Glucose Hemoglobin A1c 11.8 H D Calcium Phosphorus Magnesium Total Bilirubin AST ALT Alkaline Phosphatase Troponin I 0.1320 H* Total Protein Albumin Globulin Albumin/Globulin Ratio 08/05/17 08/05/17 08/05/17 16:19 17:13 20:07 WBC RBC Hgb Hct MCV MCH MCHC RDW Plt Count MPV Neut % (Auto) Lymph % (Auto) [place] % (Auto) Eos % (Auto) Baso % (Auto) Neut # (Auto) Lymph # (Auto) [place] # (Auto) Eos # (Auto) Baso # (Auto) Sodium Potassium Chloride Carbon Dioxide Anion Gap BUN Creatinine Est GFR ( Amer) Est GFR (Non-Af Amer) POC Glucose (mg/dL) 150 H 195 H 262 H Random Glucose Hemoglobin A1c Calcium Phosphorus Magnesium Total Bilirubin AST ALT Alkaline Phosphatase Troponin I Total Protein Albumin Globulin Albumin/Globulin Ratio 08/05/17 08/06/17 08/06/17 23:42 04:38 06:23 WBC 9.5 RBC 3.39 L Hgb 10.3 L Hct 30.0 L MCV 88.5 MCH 30.5 MCHC 34.4 RDW 14.6 H Plt Count 266 MPV 8.9 Neut % (Auto) 69.0 Lymph % (Auto) 21.7 [place] % (Auto) 7.0 Eos % (Auto) 1.6 Baso % (Auto) 0.7 Neut # (Auto) 6.6 Lymph # (Auto) 2.1 [place] # (Auto) 0.7 Eos # (Auto) 0.1 Baso # (Auto) 0.1 Sodium Potassium Chloride Carbon Dioxide Anion Gap BUN Creatinine Est GFR ( Amer) Est GFR (Non-Af Amer) POC Glucose (mg/dL) 186 H 80 Random Glucose Hemoglobin A1c Calcium Phosphorus Magnesium Total Bilirubin AST ALT Alkaline Phosphatase Troponin I Total Protein Albumin Globulin Albumin/Globulin Ratio 08/06/17 08/06/17 06:23 07:34 WBC RBC Hgb Hct MCV MCH MCHC RDW Plt Count MPV Neut % (Auto) Lymph % (Auto) [place] % (Auto) Eos % (Auto) Baso % (Auto) Neut # (Auto) Lymph # (Auto) [place] # (Auto) Eos # (Auto) Baso # (Auto) Sodium 139 Potassium 3.6 Chloride 108 H Carbon Dioxide 21 L Anion Gap 14 BUN 27 H Creatinine 1.4 Est GFR ( Amer) > 60 Est GFR (Non-Af Amer) 52 POC Glucose (mg/dL) 81 Random Glucose 89 Hemoglobin A1c Calcium 7.8 L Phosphorus 4.0 Magnesium 1.8 Total Bilirubin 0.4 AST 25 ALT 31 Alkaline Phosphatase 89 Troponin I Total Protein 5.9 L Albumin 2.7 L Globulin 3.2 Albumin/Globulin Ratio 0.9 L Fingerstick Blood Sugar Results: 81 Review of Systems - Review of Systems Review of Systems: Per Subjective Critical Care Progress Note - Nutrition Nutrition: Nutrition Category Date Time Status Heart Healthy Diet [DIET] Diets 08/05/17 Lunch Active Assessment/Plan - Assessment and Plan (Free Text) Assessment: 56 years old male with hx of DM II, HTN , CAD and Alcohol dependence, comes with sudden unset of headache associated with dizziness, blurring of the vision , nausea and vomits. In the ED he was found to have Blood Pressure of 248/ 136mmHg. Here he also developed sudden Shortness of breath with rales in both lung bergman.In the ICU he was noted to have weakness of the right lateral rectus muscle. CT of the Head was positive for a large Subarachnoid HEmmorhage. Plan: Neuro: GCS: 15 Sedation: None Consult: Neurology, Neurosurgery, IR - Recs Appreciated. A: Subarachnoid Hemmorhage (ANeurysmal/avm rupture vs permiicecephalic bleed) CT Head (Adm): The current study reveals what appears represent a large amount of subarachnoid hemorrhage pre pontine cistern extending posteriorly and inferiorly into the ambient cistern more so on the right side and premedullary cistern and anterior to upper cervicomedullary junction. . Hemorrhage is also seen layering along the tentorium. While this could be secondary to rupture of a telangiectasia the possibility of a basilar tip aneurysm must also be excluded. Followup CTA of the brain is recommended. CTA (Adm): No significant vascular abnormalities are visualized. Stenosis, no aneurysm, no arterial occlusion. Cerebral Angiogram (08/05): No source for the patient's bleed found. No aneurysm , no AVM, no shunting lesions observed ECHO (08/05): PENDING CT Head (08/06): PENDING READ Troponins: NEGATIVE Neuro checks Q1h Maintain head of bed 45 degrees up Swallow evaluation PT/OT Keppra 500 Q12H for Seizure proph NitroStat SL tab PRN Cardio A: Hypertensive Emergency, Acute on Chronic CHF Exacerbation (EF of 20-25%) Consult: Cardiology - Recs Appreciated Elevated LDL, Total Chol. TG and HDL WNL. Elevated BNP on Admission Lasix 20mg IVP Daily | Hydralazine 10mg PO Q8H | Carvedilol 25 PO BID | Enalapril 20mg PO Daily| Isosorbid Dinitrate 10mg BID | Nitrostat PRN Pulm A: Pulm Edema Cont. 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 Proph Pepcid/SCD's Patient seen and discussed with Attending Jerod Flood, PGY-1 <Praful Villagran S - Last Filed: 08/06/17 16:56> CCU Objective - Vital Signs / Intake & Output Vital Signs (Last 4 hours): Vital Signs Temp Pulse Resp BP Pulse Ox 08/06/17 16:00 98.3 F 76 26 H 132/96 H 92 L 08/06/17 15:00 70 19 126/87 97 08/06/17 14:28 76 25 H 112/75 99 08/06/17 13:01 72 31 H 123/85 97 Intake and Output (Last 8hrs): Intake & Output 08/06/17 08/06/17 08/06/17 06:59 14:59 22:59 Intake Total 480 455 0 Output Total 400 0 Balance 80 455 0 Weight 180 lb 15.992 oz Intake: Intake, IV Amount 105 Left Antecubital 105 Oral 480 350 0 Output: Urine 400 0 Urine, Voided 400 0 Other: # Voids Urine, Voided 1 0 0 # Bowel Movements 0 0 - Medications Active Medications: Active Medications Generic Name Dose Route Start Last Admin Trade Name Freq PRN Reason Stop Dose Admin Acetylcysteine 8 ml 08/05/17 10:45 08/06/17 10:59 Acetylcysteine 20% PO 08/06/17 22:01 8 ml Q12 JESSE Administration Carvedilol 25 mg 08/05/17 18:00 08/06/17 09:48 Coreg PO 25 mg BID JESSE Administration Docusate Sodium 100 mg 08/06/17 14:00 08/06/17 15:02 Colace PO 100 mg TID JESSE Administration Enalapril Maleate 20 mg 08/06/17 10:00 08/06/17 09:46 Vasotec PO 20 mg DAILY JESSE Administration Famotidine 20 mg 08/06/17 10:00 08/06/17 09:52 Pepcid PO 20 mg DAILY JESSE Administration Furosemide 40 mg 08/05/17 10:00 08/06/17 09:47 Lasix PO 40 mg DAILY JESSE Administration Hydralazine HCl 10 mg 08/04/17 19:15 08/04/17 19:04 Apresoline IVP 10 mg STAT JESSE Administration Hydralazine HCl 10 mg 08/05/17 10:00 08/06/17 09:47 Apresoline PO 10 mg Q8H JESSE Administration Levetiracetam 500 mg/ Dextrose 105 mls @ 420 mls/hr 08/05/17 10:00 08/06/17 09:43 IVPB 420 mls/hr Q12H JESSE Administration Insulin Aspart 0 unit 08/06/17 11:30 08/06/17 16:32 Novolog SC 6 unit ACHS JESSE Administration Protocol Insulin Detemir 20 unit 08/05/17 09:12 08/05/17 21:25 Levemir SC 20 unit HS JESSE Administration Isosorbide Dinitrate 10 mg 08/05/17 10:00 08/06/17 09:46 Isordil PO 10 mg BID JESSE Administration Nitroglycerin 0.4 mg 08/04/17 19:03 08/04/17 18:50 Nitrostat Sl Tab SL 0.4 mg Q5M PRN Administration Shortness of Breath Rosuvastatin Calcium 20 mg 08/05/17 22:00 08/05/17 21:25 Crestor PO 20 mg HS JESSE Administration - Patient Studies Lab Studies: Microbiology Studies 08/04/17 22:06 MRSA Culture (Admit) - Final Naris MRSA NOT DETECTED Lab Studies 08/06/17 08/06/17 08/06/17 Range/Units 16:22 15:21 11:48 WBC (4.8-10.8) K/uL RBC (4.40-5.90) Mil/uL Hgb (12.0-18.0) g/dL Hct (35.0-51.0) % MCV (80.0-94.0) fL MCH (27.0-31.0) pg MCHC (33.0-37.0) g/dL RDW (11.5-14.5) % Plt Count (130-400) K/uL MPV (7.2-11.7) fL Neut % (Auto) (50.0-75.0) % Lymph % (Auto) (20.0-40.0) % [place] % (Auto) (0.0-10.0) % Eos % (Auto) (0.0-4.0) % Baso % (Auto) (0.0-2.0) % Neut # (Auto) (1.8-7.0) K/uL Lymph # (Auto) (1.0-4.3) K/uL [place] # (Auto) (0.0-0.8) K/uL Eos # (Auto) (0.0-0.7) K/uL Baso # (Auto) (0.0-0.2) K/uL Sodium (132-148) mmol/L Potassium (3.6-5.2) mmol/L Chloride (98-107) mmol/L Carbon Dioxide (22-30) mmol/L Anion Gap (10-20) BUN (9-20) mg/dL Creatinine (0.8-1.5) mg/dL Est GFR ( Amer) Est GFR (Non-Af Amer) POC Glucose (mg/dL) 299 H 296 H (65-110) mg/dL Random Glucose (75-110) mg/dL Calcium (8.6-10.4) mg/dl Phosphorus (2.5-4.5) mg/dL Magnesium (1.6-2.3) mg/dL Total Bilirubin (0.2-1.3) mg/dL AST (17-59) U/L ALT (21-72) U/L Alkaline Phosphatase (38-126) U/L Troponin I 0.0840 (0.00-0.120) ng/mL Total Protein (6.3-8.3) g/dL Albumin (3.5-5.0) g/dL Globulin (2.2-3.9) gm/dL Albumin/Globulin Ratio (1.0-2.1) 08/06/17 08/06/17 08/06/17 Range/Units 07:34 06:23 06:23 WBC 9.5 (4.8-10.8) K/uL RBC 3.39 L (4.40-5.90) Mil/uL Hgb 10.3 L (12.0-18.0) g/dL Hct 30.0 L (35.0-51.0) % MCV 88.5 (80.0-94.0) fL MCH 30.5 (27.0-31.0) pg MCHC 34.4 (33.0-37.0) g/dL RDW 14.6 H (11.5-14.5) % Plt Count 266 (130-400) K/uL MPV 8.9 (7.2-11.7) fL Neut % (Auto) 69.0 (50.0-75.0) % Lymph % (Auto) 21.7 (20.0-40.0) % [place] % (Auto) 7.0 (0.0-10.0) % Eos % (Auto) 1.6 (0.0-4.0) % Baso % (Auto) 0.7 (0.0-2.0) % Neut # (Auto) 6.6 (1.8-7.0) K/uL Lymph # (Auto) 2.1 (1.0-4.3) K/uL [place] # (Auto) 0.7 (0.0-0.8) K/uL Eos # (Auto) 0.1 (0.0-0.7) K/uL Baso # (Auto) 0.1 (0.0-0.2) K/uL Sodium 139 (132-148) mmol/L Potassium 3.6 (3.6-5.2) mmol/L Chloride 108 H (98-107) mmol/L Carbon Dioxide 21 L (22-30) mmol/L Anion Gap 14 (10-20) BUN 27 H (9-20) mg/dL Creatinine 1.4 (0.8-1.5) mg/dL Est GFR ( Amer) > 60 Est GFR (Non-Af Amer) 52 POC Glucose (mg/dL) 81 (65-110) mg/dL Random Glucose 89 (75-110) mg/dL Calcium 7.8 L (8.6-10.4) mg/dl Phosphorus 4.0 (2.5-4.5) mg/dL Magnesium 1.8 (1.6-2.3) mg/dL Total Bilirubin 0.4 (0.2-1.3) mg/dL AST 25 (17-59) U/L ALT 31 (21-72) U/L Alkaline Phosphatase 89 (38-126) U/L Troponin I (0.00-0.120) ng/mL Total Protein 5.9 L (6.3-8.3) g/dL Albumin 2.7 L (3.5-5.0) g/dL Globulin 3.2 (2.2-3.9) gm/dL Albumin/Globulin Ratio 0.9 L (1.0-2.1) 08/06/17 08/05/17 08/05/17 Range/Units 04:38 23:42 20:07 WBC (4.8-10.8) K/uL RBC (4.40-5.90) Mil/uL Hgb (12.0-18.0) g/dL Hct (35.0-51.0) % MCV (80.0-94.0) fL MCH (27.0-31.0) pg MCHC (33.0-37.0) g/dL RDW (11.5-14.5) % Plt Count (130-400) K/uL MPV (7.2-11.7) fL Neut % (Auto) (50.0-75.0) % Lymph % (Auto) (20.0-40.0) % [place] % (Auto) (0.0-10.0) % Eos % (Auto) (0.0-4.0) % Baso % (Auto) (0.0-2.0) % Neut # (Auto) (1.8-7.0) K/uL Lymph # (Auto) (1.0-4.3) K/uL [place] # (Auto) (0.0-0.8) K/uL Eos # (Auto) (0.0-0.7) K/uL Baso # (Auto) (0.0-0.2) K/uL Sodium (132-148) mmol/L Potassium (3.6-5.2) mmol/L Chloride (98-107) mmol/L Carbon Dioxide (22-30) mmol/L Anion Gap (10-20) BUN (9-20) mg/dL Creatinine (0.8-1.5) mg/dL Est GFR ( Amer) Est GFR (Non-Af Amer) POC Glucose (mg/dL) 80 186 H 262 H (65-110) mg/dL Random Glucose (75-110) mg/dL Calcium (8.6-10.4) mg/dl Phosphorus (2.5-4.5) mg/dL Magnesium (1.6-2.3) mg/dL Total Bilirubin (0.2-1.3) mg/dL AST (17-59) U/L ALT (21-72) U/L Alkaline Phosphatase (38-126) U/L Troponin I (0.00-0.120) ng/mL Total Protein (6.3-8.3) g/dL Albumin (3.5-5.0) g/dL Globulin (2.2-3.9) gm/dL Albumin/Globulin Ratio (1.0-2.1) 08/05/17 Range/Units 17:13 WBC (4.8-10.8) K/uL RBC (4.40-5.90) Mil/uL Hgb (12.0-18.0) g/dL Hct (35.0-51.0) % MCV (80.0-94.0) fL MCH (27.0-31.0) pg MCHC (33.0-37.0) g/dL RDW (11.5-14.5) % Plt Count (130-400) K/uL MPV (7.2-11.7) fL Neut % (Auto) (50.0-75.0) % Lymph % (Auto) (20.0-40.0) % [place] % (Auto) (0.0-10.0) % Eos % (Auto) (0.0-4.0) % Baso % (Auto) (0.0-2.0) % Neut # (Auto) (1.8-7.0) K/uL Lymph # (Auto) (1.0-4.3) K/uL [place] # (Auto) (0.0-0.8) K/uL Eos # (Auto) (0.0-0.7) K/uL Baso # (Auto) (0.0-0.2) K/uL Sodium (132-148) mmol/L Potassium (3.6-5.2) mmol/L Chloride (98-107) mmol/L Carbon Dioxide (22-30) mmol/L Anion Gap (10-20) BUN (9-20) mg/dL Creatinine (0.8-1.5) mg/dL Est GFR ( Amer) Est GFR (Non-Af Amer) POC Glucose (mg/dL) 195 H (65-110) mg/dL Random Glucose (75-110) mg/dL Calcium (8.6-10.4) mg/dl Phosphorus (2.5-4.5) mg/dL Magnesium (1.6-2.3) mg/dL Total Bilirubin (0.2-1.3) mg/dL AST (17-59) U/L ALT (21-72) U/L Alkaline Phosphatase (38-126) U/L Troponin I (0.00-0.120) ng/mL Total Protein (6.3-8.3) g/dL Albumin (3.5-5.0) g/dL Globulin (2.2-3.9) gm/dL Albumin/Globulin Ratio (1.0-2.1) Laboratory Results - last 24 hr 08/05/17 08/05/17 08/05/17 17:13 20:07 23:42 WBC RBC Hgb Hct MCV MCH MCHC RDW Plt Count MPV Neut % (Auto) Lymph % (Auto) [place] % (Auto) Eos % (Auto) Baso % (Auto) Neut # (Auto) Lymph # (Auto) [place] # (Auto) Eos # (Auto) Baso # (Auto) Sodium Potassium Chloride Carbon Dioxide Anion Gap BUN Creatinine Est GFR ( Amer) Est GFR (Non-Af Amer) POC Glucose (mg/dL) 195 H 262 H 186 H Random Glucose Calcium Phosphorus Magnesium Total Bilirubin AST ALT Alkaline Phosphatase Troponin I Total Protein Albumin Globulin Albumin/Globulin Ratio 08/06/17 08/06/17 08/06/17 04:38 06:23 06:23 WBC 9.5 RBC 3.39 L Hgb 10.3 L Hct 30.0 L MCV 88.5 MCH 30.5 MCHC 34.4 RDW 14.6 H Plt Count 266 MPV 8.9 Neut % (Auto) 69.0 Lymph % (Auto) 21.7 [place] % (Auto) 7.0 Eos % (Auto) 1.6 Baso % (Auto) 0.7 Neut # (Auto) 6.6 Lymph # (Auto) 2.1 [place] # (Auto) 0.7 Eos # (Auto) 0.1 Baso # (Auto) 0.1 Sodium 139 Potassium 3.6 Chloride 108 H Carbon Dioxide 21 L Anion Gap 14 BUN 27 H Creatinine 1.4 Est GFR ( Amer) > 60 Est GFR (Non-Af Amer) 52 POC Glucose (mg/dL) 80 Random Glucose 89 Calcium 7.8 L Phosphorus 4.0 Magnesium 1.8 Total Bilirubin 0.4 AST 25 ALT 31 Alkaline Phosphatase 89 Troponin I Total Protein 5.9 L Albumin 2.7 L Globulin 3.2 Albumin/Globulin Ratio 0.9 L 08/06/17 08/06/17 08/06/17 07:34 11:48 15:21 WBC RBC Hgb Hct MCV MCH MCHC RDW Plt Count MPV Neut % (Auto) Lymph % (Auto) [place] % (Auto) Eos % (Auto) Baso % (Auto) Neut # (Auto) Lymph # (Auto) [place] # (Auto) Eos # (Auto) Baso # (Auto) Sodium Potassium Chloride Carbon Dioxide Anion Gap BUN Creatinine Est GFR ( Amer) Est GFR (Non-Af Amer) POC Glucose (mg/dL) 81 296 H Random Glucose Calcium Phosphorus Magnesium Total Bilirubin AST ALT Alkaline Phosphatase Troponin I 0.0840 Total Protein Albumin Globulin Albumin/Globulin Ratio 08/06/17 16:22 WBC RBC Hgb Hct MCV MCH MCHC RDW Plt Count MPV Neut % (Auto) Lymph % (Auto) [place] % (Auto) Eos % (Auto) Baso % (Auto) Neut # (Auto) Lymph # (Auto) [place] # (Auto) Eos # (Auto) Baso # (Auto) Sodium Potassium Chloride Carbon Dioxide Anion Gap BUN Creatinine Est GFR ( Amer) Est GFR (Non-Af Amer) POC Glucose (mg/dL) 299 H Random Glucose Calcium Phosphorus Magnesium Total Bilirubin AST ALT Alkaline Phosphatase Troponin I Total Protein Albumin Globulin Albumin/Globulin Ratio Critical Care Progress Note - Nutrition Nutrition: Nutrition Category Date Time Status Heart Healthy Diet [DIET] Diets 08/05/17 Lunch Active Attending/Attestation - Attestation I have personally seen and examined this patient.: Yes I have fully participated in the care of the patient.: Yes I have reviewed all pertinent clinical information: Yes Notes (Text): 08/06/17 16:54 Patient seen and examined in the intensive care unit. Patient is awake and alert oriented stable for transfer to floor as per neurology"
--- NOTE | 2017-08-06 10:47 | CT ---
PROCEDURE: CT HEAD WITHOUT CONTRAST. HISTORY: subarachnoid hemorrhage COMPARISON: 08/05/2017. TECHNIQUE: Axial computed tomography images were obtained through the head/brain without intravenous contrast. Radiation dose: Total exam DLP = 1071.64 mGy-cm. This CT exam was performed using one or more of the following dose reduction techniques: Automated exposure control, adjustment of the mA and/or kV according to patient size, and/or use of iterative reconstruction technique. FINDINGS: HEMORRHAGE: There is interval evaluation of known large right posterior fossa subarachnoid hemorrhage in the interpeduncular, right [place] prepontine and pre medullary cisterns as well as right suprasellar cistern and along the tentorium cerebella I more on the right. There is also small subarachnoid hemorrhage in the left parietal lobe cistern, more conspicuous on the current examination. BRAIN: There are mild chronic microangiopathic changes. There is no mass, mass effect or territorial infarction. There is apparent hyperdensity in the sella turcica. VENTRICLES: There is redemonstration of intraventricular extension of hemorrhage layering in the atria of lateral ventricles. No hydrocephalus. CALVARIUM: The skull base and calvarium are normal. PARANASAL SINUSES: Predominantly clear. MASTOID AIR CELLS: Predominantly clear. OTHER FINDINGS: None. IMPRESSION: 1. Interval evolution of known large posterior fossa subarachnoid hemorrhage with intraventricular extension as described above and small left parietal subarachnoid hemorrhage. No hydrocephalus. 2. Hyperdensity in the midline sella turcica, of uncertain etiology. A dedicated MRI of the brain without and with intravenous contrast with pituitary protocol is recommended for definitive evaluation.
[2017-08-06] MEDS: Acetylcysteine 20% Inhal Soln (4ml) PO SCH ×2 (10:59→21:15)
--- NOTE | 2017-08-06 13:36 | CP.PCM.PN ---
Subjective - Date & Time of Evaluation Date of Evaluation: 08/06/17 Time of Evaluation: 13:00 - Subjective Subjective: Hospitalist Progress Note Patient was seen and examined at 11:30 AM ICU Bed 6 56 year old male who presented with headache and was found to have Hypertensive Emergency and Subarachnoid Hemorrhage. Patient had Diagnostic Angiogram of Brain performed by Interventional Neuroradiologist on 08/05/17 and NO aneurysm/ source of bleeding was found. Repeat CT Head 08/06/17 showed interval evolution of known large posterior fossa subarachnoid hemorrhage with intraventricular extension in the atria of lateral ventricles, small left parietal subarachnoid hemorrhage, no hydrocephalus, hyperdensity in the sellu turcica of uncertain etiology 08/05/17: Upon questioning patient he is unable to provide any information what medications he takes, when was the last time that he took them, where in [place] he gets them filled or the name of the pharmacy where he gets them filled. I have asked him to have his friend who will be coming by later after work to bring his medications from home. I spoke with his PMD Dr. Cardenas and updated her as to patient status. She explained that the patient has a history of coming to see her after he has run out of his medications. His last time at her office for exam was some time in March 2017 and at that time he was taking the following medications: Saxagliptin 5 mg PO 1x/day Lasix 20 mg PO 1x/day Lipitor 40 mg PO 1x/day Metformin 1,000 mg PO 2x/day ASA 81 mg PO 1x/day Dr. Cardenas explained that the patient was also supposed to be taking Coreg, Fenofibrate but he stated at the time that he stopped them on his own. Upon FULL ROS: Headache has improved Diplopia upon asking him to focus on distant objects (such as the tv in his room which he states that he sees 2 of) however NO diplopia upon close objects. He states that he has been experiencing this since he presented at the time of this admission but can not state exactly how long it has been present. 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 (states that this has been present for years but can not tell situation around what caused this), EOM for Left Eye are intact, NO cervical/supraclavicular/submandibular lymphadenopathy, NO pharyngeal erythema/exudate, Nasal Turbinates are nonerythematous/nonedematous, Oral Mucosa is moist Cardio: NS1 and NS2, NO M/R/G Resp: CTA B/L, NO R/R/W GI: BSx4, Soft, NT, NO HSM, NO guarding/rebound tenderness Ext: Pulses are strong and equal, Capillary Refill is 2 seconds, NO edema Neuro: 5/5 strength with flexion and extension against resistance Bilateral UE and LE, NO loss of sensation in any of the extremities Assessment and Plan: 1). SAH Levetiracetam 500 mg PO Q12H Diagnostic Brain Angiogram 08/05/17 performed by Intervential Radiologist did not show evidence of aneurysm MRI Brain with and without contrast ordered for 08/07/17 for further evaluation of the hyperdensity in the sella turcica area Eye patch for the left eye ordered 2). Uncontrolled Blood Pressure Hydralazine 10 mg PO Q8H Coreg 25 mg PO 2x/day Isosorbide Dinitrate 10 mg PO 2x/day Lasix 40 mg PO 1x/day Lisinopril 40 mg PO 1x/day NO longer on nicardipine drip 3). CAD with Stent/HFrEF Cardiac Catheterization by Dr. Arellano 2015 showed cariomyopathy with EF 20-25% Coreg 25 mg PO 1x/day Lasix 40 mg PO 1x/day Hydralazine 10 mg PO Q8H Isosorbide Dinitrate 10 mg PO 2x/day Will need outpatient evaluation for AICD 4). COPD/Asthma NOT on medications at this time 5). HLD Crestor 20 mg PO 1x/day 6). DM 2 Levemir 20 units SC HS HgBA1C is 11.8 7). Elevated Troponin Ordered stat repeat along with EKG 8). Prophylaxis Acetylcystien 20% PO Q12H x 4 doses Pepcid 20 mg PO 1x/day NO anticoagulation considering SAH: SCDs for now Colace 100 mg PO TID and Prune Juice 8 ounces 2x/day for the constipation Andrew Robles D.O. Objective - Vital Signs/Intake and Output Vital Signs (last 24 hours): Temp Pulse Resp BP Pulse Ox 97.5 F L 70 16 126/84 98 08/06/17 04:00 08/06/17 12:01 08/06/17 12:01 08/06/17 12:01 08/06/17 12:01 Intake and Output: 08/06/17 08/06/17 06:59 18:59 Intake Total 1060 150 Output Total 400 0 Balance 660 150 - Medications Medications: Current Medications Acetylcysteine (Acetylcysteine 20%) 8 ml PO Q12 [facility] Stop: 08/06/17 22:01 Last Admin: 08/06/17 10:59 Dose: 8 ml Carvedilol (Coreg) 25 mg PO BID [facility] Last Admin: 08/06/17 09:48 Dose: 25 mg Enalapril Maleate (Vasotec) 20 mg PO DAILY [facility] Last Admin: 08/06/17 09:46 Dose: 20 mg Famotidine (Pepcid) 20 mg PO DAILY [facility] Last Admin: 08/06/17 09:52 Dose: 20 mg Furosemide (Lasix) 40 mg PO DAILY [facility] Last Admin: 08/06/17 09:47 Dose: 40 mg Hydralazine HCl (Apresoline) 10 mg IVP STAT [facility] Last Admin: 08/04/17 19:04 Dose: 10 mg Hydralazine HCl (Apresoline) 10 mg PO Q8H [facility] Last Admin: 08/06/17 09:47 Dose: 10 mg Levetiracetam 500 mg/ Dextrose 105 mls @ 420 mls/hr IVPB Q12H [facility] Last Admin: 08/06/17 09:43 Dose: 420 mls/hr Insulin Aspart (Novolog) 0 unit SC ACHS [facility] PRN Reason: Protocol Last Admin: 08/06/17 11:55 Dose: 6 unit Insulin Detemir (Levemir) 20 unit SC HS [facility] Last Admin: 08/05/17 21:25 Dose: 20 unit Isosorbide Dinitrate (Isordil) 10 mg PO BID [facility] Last Admin: 08/06/17 09:46 Dose: 10 mg Nitroglycerin (Nitrostat Sl Tab) 0.4 mg SL Q5M PRN PRN Reason: Shortness of Breath Last Admin: 08/04/17 18:50 Dose: 0.4 mg Rosuvastatin Calcium (Crestor) 20 mg PO HS [facility] Last Admin: 08/05/17 21:25 Dose: 20 mg - Labs Labs: 08/06/17 06:23 08/06/17 06:23 PT 11.7 SECONDS (9.7-12.2) 08/04/17 21:06 INR 1.1 08/04/17 21:06 APTT 34 SECONDS (21-34) 08/04/17 21:06
--- NOTE | 2017-08-06 14:17 | CP.PCM.PN ---
Subjective - Date & Time of Evaluation Date of Evaluation: 08/06/17 Time of Evaluation: 14:15 - Subjective Subjective: Patient's congestive heart failure has improved on medications. Continue the present medications. Patient had nonobstructive coronary artery disease, patient does not have any stent. Patient has a cardiomyopathy with EF of 20-25%. Patient has a stable subarachnoid hemorrhage mostly in the posterior fossa. Cerebral angiogram failed to reveal any aneurysm or AV malformation. Continue present neurological treatment. 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 Patient may need to see neuro-ophthalmology for special glasses for reading and seeing. Objective - Vital Signs/Intake and Output Vital Signs (last 24 hours): Temp Pulse Resp BP Pulse Ox 97.5 F L 70 16 126/84 98 08/06/17 04:00 08/06/17 12:01 08/06/17 12:01 08/06/17 12:01 08/06/17 12:01 Intake and Output: 08/06/17 08/06/17 11:59 23:59 Intake Total 390 Output Total 400 Balance -10 - Medications Medications: Current Medications Acetylcysteine (Acetylcysteine 20%) 8 ml PO Q12 [facility] Stop: 08/06/17 22:01 Last Admin: 08/06/17 10:59 Dose: 8 ml Carvedilol (Coreg) 25 mg PO BID [facility] Last Admin: 08/06/17 09:48 Dose: 25 mg Docusate Sodium (Colace) 100 mg PO TID [facility] Enalapril Maleate (Vasotec) 20 mg PO DAILY [facility] Last Admin: 08/06/17 09:46 Dose: 20 mg Famotidine (Pepcid) 20 mg PO DAILY [facility] Last Admin: 08/06/17 09:52 Dose: 20 mg Furosemide (Lasix) 40 mg PO DAILY [facility] Last Admin: 08/06/17 09:47 Dose: 40 mg Hydralazine HCl (Apresoline) 10 mg IVP STAT [facility] Last Admin: 08/04/17 19:04 Dose: 10 mg Hydralazine HCl (Apresoline) 10 mg PO Q8H [facility] Last Admin: 08/06/17 09:47 Dose: 10 mg Levetiracetam 500 mg/ Dextrose 105 mls @ 420 mls/hr IVPB Q12H [facility] Last Admin: 08/06/17 09:43 Dose: 420 mls/hr Insulin Aspart (Novolog) 0 unit SC ACHS [facility] PRN Reason: Protocol Last Admin: 08/06/17 11:55 Dose: 6 unit Insulin Detemir (Levemir) 20 unit SC HS [facility] Last Admin: 08/05/17 21:25 Dose: 20 unit Isosorbide Dinitrate (Isordil) 10 mg PO BID [facility] Last Admin: 08/06/17 09:46 Dose: 10 mg Nitroglycerin (Nitrostat Sl Tab) 0.4 mg SL Q5M PRN PRN Reason: Shortness of Breath Last Admin: 08/04/17 18:50 Dose: 0.4 mg Rosuvastatin Calcium (Crestor) 20 mg PO [facility] Last Admin: 08/05/17 21:25 Dose: 20 mg - Labs Labs: 08/06/17 06:23 08/06/17 06:23 PT 11.7 SECONDS (9.7-12.2) 08/04/17 21:06 INR 1.1 08/04/17 21:06 APTT 34 SECONDS (21-34) 08/04/17 21:06
[2017-08-06] MEDS: Insulin Detemir 100 units/ml Vial (Levemir) SC SCH (21:15)
--- NOTE | 2017-08-07 02:13 | CARD ---
APPROVED REPORT EKG Measurement Heart [id number] [place] [id number] <Conclusion> Normal sinus rhythm T wave abnormality, consider anterolateral ischemia Prolonged QT Abnormal ECG
--- NOTE | 2017-08-07 02:36 | CARD ---
APPROVED REPORT EKG Measurement Heart [id number] [place] [id number] [id number] <Conclusion> Sinus tachycardia ST & T wave abnormality, consider lateral ischemia Abnormal ECG
--- NOTE | 2017-08-07 02:37 | CARD ---
APPROVED REPORT EKG Measurement Heart [id number] [place] 170P33 [id number] <Conclusion> Sinus tachycardia Nonspecific ST and T wave abnormality Abnormal ECG
[2017-08-07 04:09] VITALS: RESP 20
[2017-08-07] MEDS: (Novolog) Insulin Aspart, Recombinant 100 u/ml 10 ml vial SC SCH ×4 (08:06→21:45)
--- NOTE | 2017-08-07 08:06 | CP.PCM.PN ---
<Dorothea Mix - Last Filed: 08/07/17 14:07> Subjective - Date & Time of Evaluation Date of Evaluation: 08/07/17 Time of Evaluation: 07:00 - Subjective Subjective: Medicine Progress Note: Patient was seen and examined at bedside in the AM. No acute events overnight. Patient states he does not have double vision today. Patient denies chest pain, shortness of breath, palpitations, headache, nausea, vomiting, fever, chills, diarrhea or constipation. Patient states he last bowel movement was this morning and that he is eating well. Objective - Vital Signs/Intake and Output Vital Signs (last 24 hours): Temp Pulse Resp BP Pulse Ox 97.6 F 70 20 151/94 H 100 08/07/17 07:59 08/07/17 07:59 08/07/17 07:59 08/07/17 07:59 08/07/17 07:59 Intake and Output: 08/07/17 08/07/17 06:59 18:59 Intake Total 340 Balance 340 - Medications Medications: Current Medications Carvedilol (Coreg) 25 mg PO BID [facility] Last Admin: 08/06/17 17:32 Dose: 25 mg Docusate Sodium (Colace) 100 mg PO TID [facility] Last Admin: 08/06/17 17:32 Dose: 100 mg Enalapril Maleate (Vasotec) 20 mg PO DAILY [facility] Last Admin: 08/06/17 09:46 Dose: 20 mg Famotidine (Pepcid) 20 mg PO DAILY [facility] Last Admin: 08/06/17 09:52 Dose: 20 mg Furosemide (Lasix) 40 mg PO DAILY [facility] Last Admin: 08/06/17 09:47 Dose: 40 mg Hydralazine HCl (Apresoline) 10 mg IVP STAT [facility] Last Admin: 08/04/17 19:04 Dose: 10 mg Hydralazine HCl (Apresoline) 10 mg PO Q8H [facility] Last Admin: 08/07/17 02:29 Dose: 10 mg Levetiracetam 500 mg/ Dextrose 105 mls @ 420 mls/hr IVPB Q12H [facility] Last Admin: 08/06/17 21:15 Dose: 420 mls/hr Insulin Aspart (Novolog) 0 unit SC ACHS [facility] PRN Reason: Protocol Last Admin: 08/06/17 21:45 Dose: 4 unit Insulin Detemir (Levemir) 20 unit SC [facility] Last Admin: 08/06/17 21:15 Dose: 20 unit Isosorbide Dinitrate (Isordil) 10 mg PO BID [facility] Last Admin: 08/06/17 17:32 Dose: 10 mg Nitroglycerin (Nitrostat Sl Tab) 0.4 mg SL Q5M PRN PRN Reason: Shortness of Breath Last Admin: 08/04/17 18:50 Dose: 0.4 mg Rosuvastatin Calcium (Crestor) 20 mg PO [facility] Last Admin: 08/06/17 21:15 Dose: 20 mg - Labs Labs: 08/06/17 06:23 08/06/17 06:23 PT 11.7 SECONDS (9.7-12.2) 08/04/17 21:06 INR 1.1 08/04/17 21:06 APTT 34 SECONDS (21-34) 08/04/17 21:06 - Constitutional Appears: No Acute Distress - Head Exam Head Exam: ATRAUMATIC, NORMAL INSPECTION - Eye Exam Eye Exam: EOMI (for the left eye ), PERRL. absent: Scleral icterus Additional comments: Right Eye without ability to abduct laterally - ENT Exam ENT Exam: Mucous Membranes Moist - Respiratory Exam Respiratory Exam: Rales (right lower lung ), NORMAL BREATHING PATTERN - Cardiovascular Exam Cardiovascular Exam: REGULAR RHYTHM, +S1, +S2 - GI/Abdominal Exam GI & Abdominal Exam: Soft, Normal Bowel Sounds. absent: Tenderness - Extremities Exam Extremities Exam: Normal Capillary Refill, Normal Inspection. absent: Joint Swelling, Pedal Edema, Tenderness - Neurological Exam Neurological Exam: Alert, Awake, Oriented x3, Reflexes Normal Neuro motor strength exam: Left Upper Extremity: 5, Right Upper Extremity: 5, Left Lower Extremity: 5, Right Lower Extremity: 5 - Psychiatric Exam Psychiatric exam: Normal Affect - Skin Skin Exam: Normal Color Assessment and Plan - Assessment and Plan (Free Text) Assessment: Subarachnoid Hemorrhage Levetiracetam 500 mg PO Q12H - Diagnostic Brain Angiogram 08/05/17 performed by Intervential Radiologist did not show evidence of aneurysm - MRI Brain with and without contrast ordered for 08/07/17 for further evaluation of the hyperdensity in the sella turcica area * Brain MRI: Subarachnoid hemorrhage within the posterior fossa subarachnoid spaces and along the tentorium less well seen on this study as compared to CT scan. Small focal area of restricted diffusion left cerebellum bordering the tentorium. This could represent a tiny acute/subacute infarct. Chronic white matter and basal nuclei ischemic changes. Mild moderate generalized volume loss. * Pituitary MRI: Unremarkable pre and post MRI of the pituitary gland. No adenoma seen. Residual subarachnoid hemorrhage in the posterior fossa subarachnoid spaces in cyst is less well seen on this study compared to high- resolution CT scan. Please refer to that report for additional details - Repeat head CT w/o contrast 08/08/17 - Eye patch for the left eye ordered Uncontrolled Blood Pressure - Medications * Hydralazine 10 mg PO Q8H * Coreg 25 mg PO 2x/day * Isosorbide Dinitrate 10 mg PO 2x/day * Lasix 40 mg PO 1x/day * Lisinopril 40 mg PO 1x/day NO longer on nicardipine drip History of CAD - Cardiac Catheterization by Dr. Arellano 2015 showed cariomyopathy with EF 20-25% <--- this is a correction from the previous note as based off the Dr. Arellano's cath report the patient's coronaries are clear with no stents placed. - Medications: * Coreg 25 mg PO 1x/day * Lasix 40 mg PO 1x/day * Hydralazine 10 mg PO Q8H * Isosorbide Dinitrate 10 mg PO 2x/day - Will need outpatient evaluation for AICD History of COPD/Asthma - NOT on medications at this time History of HLD - Crestor 20 mg PO 1x/day History of DM type 2 Levemir 20 units SC HS HgBA1C is 11.8 Elevated Troponin 0.0770 --> 0.1320 --> 0.0840 Prophylaxis - Acetylcystien 20% PO Q12H x 4 doses - Pepcid 20 mg PO 1x/day - NO anticoagulation considering SAH: SCDs for now - Colace 100 mg PO TID and Prune Juice 8 ounces 2x/day for the constipation - Physical Therapy Eval and Treat Case discussed with Dr. Travis Mix PGY-1 <Andrew Robles - Last Filed: 08/07/17 17:59> Objective - Vital Signs/Intake and Output Vital Signs (last 24 hours): Temp Pulse Resp BP Pulse Ox 98 F 70 20 145/98 H 98 08/07/17 16:00 08/07/17 16:00 08/07/17 16:00 08/07/17 17:03 08/07/17 16:00 Intake and Output: 08/07/17 08/07/17 06:59 18:59 Intake Total 340 600 Balance 340 600 - Medications Medications: Current Medications Carvedilol (Coreg) 25 mg PO BID [facility] Last Admin: 08/07/17 17:03 Dose: Not Given Docusate Sodium (Colace) 100 mg PO TID [facility] Last Admin: 08/07/17 17:01 Dose: 100 mg Enalapril Maleate (Vasotec) 20 mg PO DAILY [facility] Last Admin: 08/07/17 11:16 Dose: 20 mg Famotidine (Pepcid) 20 mg PO DAILY [facility] Last Admin: 08/07/17 09:57 Dose: 20 mg Furosemide (Lasix) 40 mg PO DAILY [facility] Last Admin: 08/07/17 09:57 Dose: 40 mg Hydralazine HCl (Apresoline) 10 mg IVP STAT [facility] Last Admin: 08/04/17 19:04 Dose: 10 mg Hydralazine HCl (Apresoline) 10 mg PO Q8H [facility] Last Admin: 08/07/17 17:03 Dose: Not Given Levetiracetam 500 mg/ Dextrose 105 mls @ 420 mls/hr IVPB Q12H [facility] Last Admin: 08/07/17 10:18 Dose: 420 mls/hr Insulin Aspart (Novolog) 0 unit SC ACHS [facility] PRN Reason: Protocol Last Admin: 08/07/17 17:01 Dose: 2 unit Insulin Detemir (Levemir) 20 unit SC [facility] Last Admin: 08/06/17 21:15 Dose: 20 unit Isosorbide Dinitrate (Isordil) 10 mg PO BID [facility] Last Admin: 08/07/17 17:04 Dose: Not Given Nitroglycerin (Nitrostat Sl Tab) 0.4 mg SL Q5M PRN PRN Reason: Shortness of Breath Last Admin: 08/04/17 18:50 Dose: 0.4 mg Rosuvastatin Calcium (Crestor) 20 mg PO HS [facility] Last Admin: 08/06/17 21:15 Dose: 20 mg - Labs Labs: 08/07/17 11:25 08/07/17 11:25 PT 11.7 SECONDS (9.7-12.2) 08/04/17 21:06 INR 1.1 08/04/17 21:06 APTT 34 SECONDS (21-34) 08/04/17 21:06 Attending/Attestation - Attestation I have personally seen and examined this patient.: Yes I have fully participated in the care of the patient.: Yes I have reviewed all pertinent clinical information, including history, physical exam and plan: Yes Notes (Text): 08/07/17 17:54 Patient was seen and examined at with resident Dr. Heather Mix. Exam, assessment and plan were gone over with Dr. Mix. Please note patient no longer complaining of diplopia even with far vision. Also he is now able to to abduct the right eye past the midline which he was not able to do upto this point We will get repeat CT Head without contrast in morning 08/07/17 and if no worsening of the SAH we will discharge patient. Andrew Robles D.O.
--- NOTE | 2017-08-07 08:29 | OP ---
PROCEDURE DATE: 08/05/2017 DIAGNOSTIC CEREBRAL ANGIOGRAM REFERRING PHYSICIAN: Adryan Roque MD. SURGEON: Alejandro Syed MD. BRIEF HISTORY: The patient is a 56-year-old male with multiple vascular risk factors, he presented to the emergency room at [facility] yesterday after experiencing a severe headache. Noninvasive acute neurovascular imaging demonstrated a subarachnoid hemorrhage with predominance in the posterior fossa on noncontrast CT. CTA was done of the head and cerebral mittal and demonstrated no evidence of vascular abnormalities, specifically aneurysmal or AVM. Diagnostic cerebral angiography was requested by the primary team as to further define and delineate the patient's exact angioarchitecture and also to rule out any underlying vascular abnormalities that can pose a continued risk of bleeding. I had detailed discussion with the patient, with the aid of an sample hand and with his family. I explained the risks and benefits of the procedure, the risks being allergic reaction, renal damage, complication, hemorrhage, risk of stroke with severe persistent deficit as well as complications related to anesthesia. After discussing with the anesthesiologist, it was determined that given the patient has low ejection fraction and yesterday suffered flash pulmonary edema, we would attempt to do the angiogram with minimally conscious sedation, reserving intubation, only if the patient was too uncomfortable to participate, question of initial safety, where we were unable to get diagnostic imaging. Informed consent was obtained. PROCEDURE: The patient was brought into the room. Time-outs were performed and verified by everyone there. The patient was prepped in a sterile fashion. Chlorhexidine was used and allowed to dry for 3 seconds procedure, 10 mL of lidocaine was given into the right groin. Right femoral artery was accessed using a modified Seldinger technique and access was obtained to the right femoral artery. A 5-V[place]an diagnostic sheath was placed under continuous heparinized flush. All the images were obtained under digital subtraction angiography with road map guidance when needed for navigation and under direct visualization. A 5-[place] diagnostic catheter connected up with continuous heparinized flush, was then advanced into the aorta, where it was double flushed as per our protocol. Vessel selected: The left subclavian artery was selected. Diagnostic angiography performed in the AP cervical plane demonstrated the origins of the left vertebral artery. There is mild stenosis distal to the origin in the V1 segment; however, this is not flow limiting or were there any evidence of dissection or flow abnormality. Cervical imaging demonstrated a normal course with a slightly dimunitive character of the left vertebral artery of the cervical plane. No evidence of shunting lesion nor aneurysm. Left vertebral artery: Intracranial injections were performed in AP, lateral and oblique projections as well with high speed magnified frame range. These injections demonstrated normal course with slightly dimunitive character of the left vertebral artery, PICA on the left is visualized as well as bilateral SCAs and audiology assistant. Cerebral and cerebellar drainage is seen without any early venous drainage or shunting up there. There is questionable very slight early filling of the bilateral transverse sinuses; however, one of these images were repeated in high speed angiogram, no definitive shunting was observed. Left common carotid artery: Cervical injections were performed in common carotid artery. These injections demonstrated no evidence of high-grade stenosis or severe atherosclerotic disease in the common carotid artery visualized portions of the external and internal carotid artery. Left internal carotid artery: Intracranial AP, lateral and high speed oblique projections were performed from the left internal carotid artery of the intracranial circulation. These demonstrated a normal course and caliber of the visualized portions of the left internal carotid artery. The left A1 is present as well as the left MCA in branches. Further, the left AURORA can be seen healing well. There is slightly early venous emptying seen via superficial cerebral veins of the transverse sinus, in line with the location of the previously described, somewhat brisk filling of the . This occurs after the arterial phase and does not represent definitive evidence of shunting. No evidence of AVM nor aneurysm identified on the injection. Left external carotid artery: Injections were performed to the left external carotid artery. There is normal opacification of the branches in the left external carotid artery with visualization of the left internal maxillary artery, left superior temporal artery, and left middle meningeal artery. No intracranial shunting is observed. On these injections, the left occipital artery were not visualized. Projections were obtained in AP and lateral views. Left occipital artery: Selective injections of the left occipital artery were performed in AP and lateral views. These demonstrated a robust appearance of left occipital artery, slightly enlarged but without evidence of shunting as well as these injections showed reflux into the ipsilateral ascending pharyngeal artery, again noting no evidence of shunting. Right vertebral artery: Cervical views were obtained of the right vertebral artery. These were done in the cervical plane. They demonstrated a slightly dimunitive caliber to the vessel with no evidence of overt luminal abnormality. No shunting was observed nor is there any evidence to suggest aneurysm in these images. Right vertebral artery: Intracranial projections in AP, lateral and oblique views with high-speed frame rate were obtained from the right vertebral artery with intracranial circulation. These demonstrated a slightly diminished caliber of the V2 through V4 segments with opacification of the basilar artery and bilateral audiology assistant as well bilateral SCAs are testified. Cerebral and cerebellar venous drainage are within normal limits, again noted on these projections is a slight increased velocity of filling seen on the transverse sinuses; however, no definitive shunting is observed. No evidence of aneurysm nor AVM. Right subclavian artery: Injection of the right subclavian artery demonstrates no evidence of stenosis of the visualized portions of the right vertebral artery. Further visualized portions of the right thyrocervical and costocervical trunk are seen and there is nothing to suggest shunting lesion nor supply. Right common carotid artery: Injections were performed in oblique field of the right common carotid artery. These injections demonstrated normal luminal caliber of the right common carotid artery with visualizations of the proximal portion of both internal and external carotid artery. There is no evidence flow limiting stenosis nor high-grade stenosis. Right internal carotid artery: Injections from the right internal carotid artery were obtained in an intracranial projections AP, lateral and magnified high speed oblique bergman. These injections demonstrated normal course and caliber of the intracranial and visualized right ICA as well as opacification of the right MCA and all of its branches as well as the right A1 and AURORA. The ophthalmic artery and anterior carotid artery are seen here as well as a pseudo configuration of the right Pcom. Overall, in regards of appearance of these arteries is consistent with moderate intracranial atherosclerotic disease to be observed in the M2 branches and the A3 distal vasculature. Right occipital artery: right occipital artery were performed in AP via lateral and oblique projections. They demonstrated no evidence of shunting. Right external carotid artery: Injections of the right external carotid artery were performed in AP, lateral projections. Filling was seen of the right , right superior temporal artery, right middle meningeal artery, as well as flash filling of the right ascending pharyngeal artery. No shunting is observed. Right femoral arteriography was performed. This demonstrated puncture site above the carotid bifurcation suitable for deployment of AngioSeal vascular closure device. Hemostasis: Hemostasis was achieved with deployment of a 6-Venezuelan vascular closure device as well prior to this all catheters and devices were removed. Complications: No complications, no hematoma. The patient tolerated the procedure well with no new focal neurological deficits at the end of the procedure. IMPRESSION: This diagnostic cerebral angiogram did not display any definitive cause for this patient's subarachnoid hemorrhage. There was no definitive evidence of aneurysm, arteriovenous malformation, nor shunting lesion. Of questionable concern, was the appearance of somewhat brisk but no definitively early venous drainage into the bilateral transverse sinuses. This could represent a normal anatomical variance with a slight stenosis, giving somewhat irregular two-faced film. Does not appear to represent a fistula or arteriovenous malformation. Results were relayed to the treating team at that time. Recommend repeat vascular imaging in the next 4 to 7 days. Alejandro Syed MD
[2017-08-07] MEDS ORDERED: Gadodiamide 287 mg/ml 20 ml IV ONE (08:30)
--- NOTE | 2017-08-07 10:04 | MRI ---
PROCEDURE: MRI BRAIN AND PITUITARY WITH AND WITHOUT CONTRAST HISTORY: SAH, Diplopia, Hyperdensity in Sella Turcica COMPARISON: Correlation made with concurrent MRI of the brain. Comparison made with CT scan brain 08/06/2017. TECHNIQUE: Multiplanar, multisequence MR images of the pituitary glad were obtained, including high resolution sagittal T2 and dynamic, multiphasic contrast coronal T1 weighted images of the sellar turcica. FINDINGS: PITUITARY GLAND: Unremarkable. No mass, abnormal enhancement or signal abnormality. Infundibulum midline. OPTIC CHIASM: Unremarkable. SUPRASELLAR CISTERN: Unremarkable. CAVERNOUS SINUSES: Unremarkable. BRAIN (LIMITED): Chronic white matter and basal nuclei ischemic changes. Mild moderate generalized volume loss VENTRICLES: No obstructive hydrocephalus. OTHER FINDINGS: Residual subarachnoid hemorrhage in the posterior fossa is less well seen on this study as compared to CT scan brain 08/06/2017 please refer that study for additional details IMPRESSION: Unremarkable pre and post MRI of the pituitary gland. No adenoma seen. Residual subarachnoid hemorrhage in the posterior fossa subarachnoid spaces in cyst is less well seen on this study compared to high-resolution CT scan. Please refer to that report for additional details
--- NOTE | 2017-08-07 10:14 | MRI ---
PROCEDURE: MRI BRAIN WITH AND WITHOUT CONTRAST HISTORY: Hypodensity, Sella Turcica, New Onset Diplopia COMPARISON: Comparison made with prior CT scan of the brain 08/06/2017. . TECHNIQUE: Multiplanar, multisequence MR images of the brain were obtained with and without intravenous contrast enhancement. FINDINGS: HEMORRHAGE: Subarachnoid hemorrhage layering along the tentorium as well as within posterior fossa subarachnoid spaces less well seen compared to CT scan 08/06/2017. Subarachnoid hemorrhage is also again seen layering along the DWI: There is a small focal area of restricted diffusion an left aspect of the posterior fossa which appears to be located along the cerebellum and/or tentorium. While this could represent a tiny acute/subacute infarct. BRAIN PARENCHYMA: Mild to moderate diffuse/confluent chronic periventricular white matter ischemic changes are seen extending peripherally into the deep and subcortical regions of both cerebral hemispheres. Additionally, there are scattered chronic appearing bilateral basal nuclei lacunar type infarcts. ENHANCEMENT: No abnormal intracranial enhancement. VENTRICLES: Unremarkable. No hydrocephalus. CRANIUM: Unremarkable. ORBITS: Grossly unremarkable. PARANASAL SINUSES/MASTOIDS: Clear VASCULAR SYSTEM: Visualized major vascular flow voids at skull base patent. OTHER FINDINGS: None . IMPRESSION: Subarachnoid hemorrhage within the posterior fossa subarachnoid spaces and along the tentorium less well seen on this study as compared to CT scan. Small focal area of restricted diffusion left cerebellum bordering the tentorium. This could represent a tiny acute/subacute infarct. Chronic white matter and basal nuclei ischemic changes. Mild moderate generalized volume loss. Findings discussed with Dr Hernandez at 10 a.m. with written down and read back verification.
[2017-08-07 11:41] LABS: BASO # 0.1 K/uL (0.0-0.2); BASO % 0.9 % (0.0-2.0); EOS # 0.1 K/uL (0.0-0.7); EOS % 1.2 % (0.0-4.0); HEMOGLOBIN 10.7 g/dL (12.0-18.0); LYMPH # 1.8 K/uL (1.0-4.3); LYMPH % 22.8 % (20.0-40.0); MEAN CELL VOLUME 89.6 fL (80.0-94.0); MEAN CORPUSCULAR HGB CONC 34.7 g/dL (33.0-37.0); MEAN PLATELET VOLUME 9.1 fL (7.2-11.7); MONO # 0.7 K/uL (0.0-0.8); MONO % 8.6 % (0.0-10.0); NEUT # 5.3 K/uL (1.8-7.0); NEUT % 66.5 % (50.0-75.0); NRBC % 0.1 % (0.0-2.0); RBC 3.46 Mil/uL (4.40-5.90); RED CELL DISTRIBUTION WIDTH 14.3 % (11.5-14.5)
[2017-08-07 12:10] LABS: ALB/GLOB RATIO 0.9 (1.0-2.1); ALBUMIN 2.8 g/dL (3.5-5.0); CALCIUM 8.2 mg/dl (8.6-10.4)
--- NOTE | 2017-08-07 14:46 | CP.PCM.PN ---
Subjective - Date & Time of Evaluation Date of Evaluation: 08/07/17 Time of Evaluation: 14:43 - Subjective Subjective: CHIEF COMPLAINTS TODAY : CLINICALLY IMPROVING NOCP/SOB DIASTOLIC BP UP ROS. HEENT : N. Resp : No cough, wheezing ,pleuritic CP ,or hemoptysis Cardio : No anginal CP, PND, orthopnea, palpitation GI : No abd.pain, n/v ,diarrhea or GI bleeding . 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 Musculoskel : No joint swelling , Derm : No rash Psych : Normal affect. Ext : No swelling ,calf pain PE. Pt. is alert awake in no distress. V.S As noted in the chart Head ,ear nose,throat and eyes : Normal. Neck : Supple with normal carotids. Lungs: Clear air entry. Heart : S1 & S2 normal with S4. No murmur. Abd : Soft non tender with normal bowel sounds. Neuro : Moves all ext. with no localized deficit. Ext : No edema with intact pulses.Non tender calves Derm : No rashes or decubitus ulcer. LABS/RADIOLOGY: MRI HEAD , NOTHING ACUTE OR NEW , RESOLVING SAH ASSESSMENT/PLAN : CONT PRESENT CARDIAC MEDS Objective - Vital Signs/Intake and Output Vital Signs (last 24 hours): Temp Pulse Resp BP Pulse Ox 97.6 F 70 20 138/92 H 100 08/07/17 07:59 08/07/17 12:00 08/07/17 07:59 08/07/17 11:16 08/07/17 07:59 - Medications Medications: Current Medications Carvedilol (Coreg) 25 mg PO BID [facility] Last Admin: 08/07/17 09:58 Dose: 25 mg Docusate Sodium (Colace) 100 mg PO TID [facility] Last Admin: 08/07/17 13:34 Dose: 100 mg Enalapril Maleate (Vasotec) 20 mg PO DAILY [facility] Last Admin: 08/07/17 11:16 Dose: 20 mg Famotidine (Pepcid) 20 mg PO DAILY [facility] Last Admin: 08/07/17 09:57 Dose: 20 mg Furosemide (Lasix) 40 mg PO DAILY [facility] Last Admin: 08/07/17 09:57 Dose: 40 mg Hydralazine HCl (Apresoline) 10 mg IVP STAT [facility] Last Admin: 08/04/17 19:04 Dose: 10 mg Hydralazine HCl (Apresoline) 10 mg PO Q8H [facility] Last Admin: 08/07/17 09:57 Dose: 10 mg Levetiracetam 500 mg/ Dextrose 105 mls @ 420 mls/hr IVPB Q12H [facility] Last Admin: 08/07/17 10:18 Dose: 420 mls/hr Insulin Aspart (Novolog) [address] [facility] PRN Reason: Protocol Last Admin: 08/07/17 12:27 Dose: 4 unit Insulin Detemir (Levemir) 20 unit SC [facility] Last Admin: 08/06/17 21:15 Dose: 20 unit Isosorbide Dinitrate (Isordil) 10 mg PO BID [facility] Last Admin: 08/07/17 09:57 Dose: 10 mg Nitroglycerin (Nitrostat Sl Tab) 0.4 mg SL Q5M PRN PRN Reason: Shortness of Breath Last Admin: 08/04/17 18:50 Dose: 0.4 mg Rosuvastatin Calcium (Crestor) 20 mg PO [facility] Last Admin: 08/06/17 21:15 Dose: 20 mg - Labs Labs: 08/07/17 11:25 08/07/17 11:25 PT 11.7 SECONDS (9.7-12.2) 08/04/17 21:06 INR 1.1 08/04/17 21:06 APTT 34 SECONDS (21-34) 08/04/17 21:06
--- NOTE | 2017-08-07 16:23 | CARD ---
APPROVED REPORT EXAM: Two-dimensional and M-mode echocardiogram with Doppler and color Doppler. Other Information Quality : GoodRhythm : INDICATION Cardiac Disease: CAD RISK FACTORS Hypertension Diabetes 2D DIMENSIONS IVSd1.1 (0.7-1.1cm)LVDd5.6 (3.9-5.9cm) PWd1.2 (0.7-1.1cm)LVDs4.8 (2.5-4.0cm) FS (%) 12.8 %LVEF (%)25.0 (>50%) M-Mode DIMENSIONS Left Atrium (MM)4.13 (2.5-4.0cm)IVSd1.15 (0.7-1.1cm) Aortic Root3.49 (2.2-3.7cm)LVDd6.44 (4.0-5.6cm) Aortic Cusp Exc.1.74 (1.5-2.0cm)PWd1.10 (0.7-1.1cm) FS (%) 17 %LVDs5.37 (2.0-3.8cm) LVEF (%)34 (>50%) Mitral Valve MV E Yocpnhzv67.4cm/sMV A Xnlnpvsz38.4cm/sE/A ratio2.8 TDI E/Lateral E'0.0E/Medial E'0.0 Tricuspid Valve TR Peak [id number]/sTR Peak Gr.[id number] LEFT VENTRICLE The left ventricle is normal size. There is normal left ventricular wall thickness. The systolic function is severely impaired. ATRIA The left atrium is moderately dilated. AORTIC VALVE The aortic valve is normal in structure. MITRAL VALVE Mitral regurgitation is mild to moderate. TRICUSPID VALVE There is mild to moderate tricuspid regurgitation. <Conclusion> Severe LV systolic dysfunction. Dilated LA. Mild to moderate MR. Mild to moderate TR.
[2017-08-07] MEDS: Insulin Detemir 100 units/ml Vial (Levemir) SC SCH (21:46)
[2017-08-08 07:44] LABS: BASO # 0.1 K/uL (0.0-0.2); BASO % 0.9 % (0.0-2.0); EOS # 0.1 K/uL (0.0-0.7); EOS % 1.9 % (0.0-4.0); HEMOGLOBIN 11.8 g/dL (12.0-18.0); LYMPH % 26.6 % (20.0-40.0); MEAN CELL VOLUME 89.2 fL (80.0-94.0); MEAN CORPUSCULAR HEMOGLOBIN 30.9 pg (27.0-31.0); MEAN CORPUSCULAR HGB CONC 34.6 g/dL (33.0-37.0); MEAN PLATELET VOLUME 9.2 fL (7.2-11.7); MONO # 0.7 K/uL (0.0-0.8); MONO % 8.9 % (0.0-10.0); NEUT # 4.6 K/uL (1.8-7.0); NEUT % 61.7 % (50.0-75.0); RBC 3.81 Mil/uL (4.40-5.90); RED CELL DISTRIBUTION WIDTH 14.3 % (11.5-14.5); WHITE BLOOD COUNT 7.4 K/uL (4.8-10.8)
[2017-08-08 07:52] LABS: ALB/GLOB RATIO 0.9 (1.0-2.1); ALBUMIN 2.9 g/dL (3.5-5.0); ALT/SGPT 92 U/L (21-72); AST/SGOT 96 U/L (17-59); BLOOD UREA NITROGEN 31 mg/dL (9-20); CALCIUM 8.4 mg/dl (8.6-10.4); GFR AFRICAN-AMERICAN > 60; GFR NON-AFRICAN AMERICAN 52
[2017-08-08] MEDS: (Novolog) Insulin Aspart, Recombinant 100 u/ml 10 ml vial SC SCH ×2 (08:30→12:22)
--- NOTE | 2017-08-08 11:31 | CT ---
PROCEDURE: CT HEAD WITHOUT CONTRAST. HISTORY: s/p subarachnoid hemorrhage COMPARISON: None available. TECHNIQUE: Axial computed tomography images were obtained through the head/brain without intravenous contrast. Radiation dose: Total exam DLP = 1071.64 mGy-cm. This CT exam was performed using one or more of the following dose reduction techniques: Automated exposure control, adjustment of the mA and/or kV according to patient size, and/or use of iterative reconstruction technique. . Note that the examination is limited by streak and beam hardening artifact which partially obscures fine soft tissue and bone detail at the skullbase FINDINGS: HEMORRHAGE: Re- demonstrated are residual areas of subarachnoid hemorrhage seen in the pre pontine and pre medullary cistern more so on the right side as well as along the tentorium. No new hemorrhages are identified. . . BRAIN: Mild moderate chronic periventricular white matter ischemic changes with scattered chronic bilateral basal nuclei lacunar type infarcts Mild generalized volume loss VENTRICLES: No obstructive hydrocephalus. CALVARIUM: Unremarkable. PARANASAL SINUSES: Unremarkable as visualized. No significant inflammatory changes. MASTOID AIR CELLS: Unremarkable as visualized. No inflammatory changes. OTHER FINDINGS: None. IMPRESSION: Re- demonstrated are residual areas of subarachnoid hemorrhage seen in the pre pontine and pre medullary cistern more so on the right side as well as along the tentorium. No new hemorrhages are identified. Mild moderate chronic periventricular white matter ischemic changes with scattered chronic bilateral basal nuclei lacunar type infarcts Mild generalized volume loss
--- NOTE | 2017-08-08 12:02 | CP.PCM.DIS ---
<Dorothea Mix - Last Filed: 08/08/17 13:18> Provider - Provider Date of Admission: 08/04/17 20:01 Attending physician: Andrew Robles MD Time Spent in preparation of Discharge (in minutes): 40 Hospital Course - Lab Results Lab Results: Micro Results 08/04/17 22:06 Naris MRSA Culture (Admit) - Final MRSA NOT DETECTED Most Recent Lab Values WBC 7.4 K/uL (4.8-10.8) 08/08/17 07:28 RBC 3.81 Mil/uL (4.40-5.90) L 08/08/17 07:28 Hgb 11.8 g/dL (12.0-18.0) L 08/08/17 07:28 Hct 34.0 % (35.0-51.0) L 08/08/17 07:28 MCV 89.2 fL (80.0-94.0) 08/08/17 07:28 MCH 30.9 pg (27.0-31.0) 08/08/17 07:28 MCHC 34.6 g/dL (33.0-37.0) 08/08/17 07:28 RDW 14.3 % (11.5-14.5) 08/08/17 07:28 Plt Count 232 K/uL (130-400) 08/08/17 07:28 MPV 9.2 fL (7.2-11.7) 08/08/17 07:28 Neut % (Auto) 61.7 % (50.0-75.0) 08/08/17 07:28 Lymph % (Auto) 26.6 % (20.0-40.0) 08/08/17 07:28 [place] % (Auto) 8.9 % (0.0-10.0) 08/08/17 07:28 Eos % (Auto) 1.9 % (0.0-4.0) 08/08/17 07:28 Baso % (Auto) 0.9 % (0.0-2.0) 08/08/17 07:28 Neut # (Auto) 4.6 K/uL (1.8-7.0) 08/08/17 07:28 Lymph # (Auto) 2.0 K/uL (1.0-4.3) 08/08/17 07:28 [place] # (Auto) 0.7 K/uL (0.0-0.8) 08/08/17 07:28 Eos # (Auto) 0.1 K/uL (0.0-0.7) 08/08/17 07:28 Baso # (Auto) 0.1 K/uL (0.0-0.2) 08/08/17 07:28 PT 11.7 SECONDS (9.7-12.2) 08/04/17 21:06 INR 1.1 08/04/17 21:06 APTT 34 SECONDS (21-34) 08/04/17 21:06 Puncture Site Rba 08/04/17 21:14 pCO2 31 mm/Hg (35-45) L 08/04/17 21:14 pO2 262 mm/Hg (80-100) H 08/04/17 21:14 HCO3 21.3 mmol/L (21-28) 08/04/17 21:14 ABG pH 7.40 (7.35-7.45) 08/04/17 21:14 ABG Total CO2 20.2 mmol/L (22-28) L 08/04/17 21:14 ABG O2 Saturation 100.1 % (95-98) H 08/04/17 21:14 ABG Base Excess -4.6 mmol/L (-2.0-3.0) L 08/04/17 21:14 ABG Hemoglobin 12.3 g/dL (11.7-17.4) 08/04/17 21:14 ABG Carboxyhemoglobin 1.8 % (0.5-1.5) H 08/04/17 21:14 POC ABG HHb (Measured) -0.1 % (0.0-5.0) L 08/04/17 21:14 ABG Methemoglobin 1.3 % (0.0-3.0) 08/04/17 21:14 Davon Test Pos 08/04/17 21:14 A-a O2 Difference 412.0 mm/Hg 08/04/17 21:14 Respiratory Index 1.6 08/04/17 21:14 Hgb O2 Saturation 97.1 % (95.0-98.0) 08/04/17 21:14 Liter Flow 15.0 08/04/17 21:14 FiO2 100.0 % 08/04/17 21:14 Sodium 136 mmol/L (132-148) 08/08/17 07:28 Potassium 3.8 mmol/L (3.6-5.2) 08/08/17 07:28 Chloride 105 mmol/L (98-107) 08/08/17 07:28 Carbon Dioxide 21 mmol/L (22-30) L 08/08/17 07:28 Anion Gap 14 (10-20) 08/08/17 07:28 BUN 31 mg/dL (9-20) H 08/08/17 07:28 Creatinine 1.4 mg/dL (0.8-1.5) 08/08/17 07:28 Est GFR ( Amer) > 60 08/08/17 07:28 Est GFR (Non-Af Amer) 52 08/08/17 07:28 POC Glucose (mg/dL) 224 mg/dL (65-110) H 08/08/17 11:27 Random Glucose 110 mg/dL (75-110) 08/08/17 07:28 Hemoglobin A1c 11.8 % (4.2-6.5) H D 08/05/17 10:52 Calcium 8.4 mg/dl (8.6-10.4) L 08/08/17 07:28 Phosphorus 4.5 mg/dL (2.5-4.5) 08/08/17 07:28 Magnesium 2.1 mg/dL (1.6-2.3) 08/08/17 07:28 Total Bilirubin 0.2 mg/dL (0.2-1.3) 08/08/17 07:28 AST 96 U/L (17-59) H D 08/08/17 07:28 ALT 92 U/L (21-72) H D 08/08/17 07:28 Alkaline Phosphatase 174 U/L (38-126) H D 08/08/17 07:28 Troponin I 0.0840 ng/mL (0.00-0.120) 08/06/17 15:21 NT-Pro-B Natriuret Pep 8630 pg/mL (0-900) H 08/04/17 19:06 Total Protein 6.2 g/dL (6.3-8.3) L 08/08/17 07:28 Albumin 2.9 g/dL (3.5-5.0) L 08/08/17 07:28 Globulin 3.2 gm/dL (2.2-3.9) 08/08/17 07:28 Albumin/Globulin Ratio 0.9 (1.0-2.1) L 08/08/17 07:28 Triglycerides 65 mg/dL (0-149) D 08/05/17 06:00 Cholesterol 253 mg/dL (0-199) H 08/05/17 06:00 LDL Cholesterol Direct 154 mg/dL (0-129) H 08/05/17 06:00 HDL Cholesterol 82 mg/dL (30-70) H 08/05/17 06:00 Urine Color Yellow (YELLOW) 08/05/17 06:00 Urine Clarity Hazy (Clear) 08/05/17 06:00 Urine pH 5.0 (5.0-8.0) 08/05/17 06:00 Ur Specific Padroni 1.021 (1.003-1.030) 08/05/17 06:00 Urine Protein 2+ mg/dL (NEGATIVE) H 08/05/17 06:00 Urine Glucose (UA) 3+ mg/dL (Normal) H 08/05/17 06:00 Urine Ketones 1+ mg/dL (NEGATIVE) H 08/05/17 06:00 Urine Blood 1+ (NEGATIVE) H 08/05/17 06:00 Urine Nitrate Negative (NEGATIVE) 08/05/17 06:00 Urine Bilirubin Negative (NEGATIVE) 08/05/17 06:00 Urine Urobilinogen Normal mg/dL (0.2-1.0) 08/05/17 06:00 Ur Leukocyte Esterase Neg Lb/uL (Negative) 08/05/17 06:00 Urine WBC (Auto) 2 /hpf (0-5) 08/05/17 06:00 Urine RBC (Auto) 7 /hpf (0-3) H 08/05/17 06:00 Ur Squamous Epith Cells 2 /hpf (0-5) 08/05/17 06:00 Amorphous Sediment Occ /ul (<OCC) H 08/05/17 06:00 Urine Bacteria Rare (<OCC) 08/05/17 06:00 - Hospital Course Hospital Course: This is a 56 yo male, originally from [place], with past medical hx of HTN, DM, HLD, cardiac stent, presenting to ER with chief complaint of headache. Pt was brought in by ambulance. 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 He started having a headache suddenly about 1 PM. He denies trauma. He says it has never happened before. It is frontal in location. It was 5/10 in intensity. He denies radiation. Denies fevers, chills, vomiting. He denies chest pain, palpitations, syncope, dizziness. He says he went to tell his supervisor lamp shades and the he was advised to come into ER. He denies any change in vision currently, but did have some blurry vision when the headache first started. Pt had cardiac cath [place] [address] Arellano showing severe cardiomyopathy with EF of 20-25 percent. In ER, blood pressure, was in 240s systolic and patient was given IV labetalol and hydralazine and started on a nicardipine drip. Pt developed shortness of breath and flash pulmonary edema and rales were heard in the lungs. PMD: Theresa Specialists: none Insurance: [employer] PPO Code status: full code PMH: DM, HTN, HLD, cardiac stent (2017), asthma, COPD, heart failure with reduced ejection fraction PSH: appendectomy, cardiac stent Allergies: NKDA FH: Mother- - pt does not know her medical hx Father- - pt does not know his medical hx Social hx: Lives in [place], [place]. Former smoker. Quit 10 yrs ago. Smoked 3 ppd for 20 yrs. Lives alone with dog. Denies drug use. Says he drinks 1 beer/day. 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 Able to do all ADLs and live independently. Hospital Course: Patient was came to the ER for a headache and found to have a subarachnoid hemorrhage on imaging and was admitted to the ICU. Neurology Dr. Roque/Dr. Howell were consulted. Patient was found to have uncontrolled elevated blood pressure. Patient was started initially on a Nicardipine drip and once stabilized patient was then started on oral medications which are noted below. Also due to the patient's history of CAD patient was continued on a statin. Previous cardiac cath [place] [address] Arellano 2015 showed cariomyopathy with EF 20-25% and patient's coronaries are clear with no stents placed. Prior to discharge a repeat head ct was done which showed the subarachnoid hemorrhage was stable. Spoke to neurology Dr. Howell and stated patient was stable for discharge home and to follow up as an outpatient. Discussed with patient that he was stable for discharge but also discussed the importance of medication compliance, following up with PMD Dr. Cardenas and the specialists. Also discussed that the patient should not drive or operate heavy machinery. In addition discussed that the patient should not take ibuprofen, Motrin, Advil, Aleve due to his diagnosis of subarachnoid hemorrhage. Patient was seen and examined prior to discharge. Patient's strength 5/5. Patient's right eye had 80% improvement of abduction. Patient had steady gait and no difficulty walking. Patient denied headache, blurry vision, double vision, chest pain, shortness of breath, palpitations, nausea, vomiting, fever, chills, diarrhea or constipation. Images: - Diagnostic Brain Angiogram 08/05/17 performed by [facility]iologist did not show evidence of aneurysm - MRI Brain with and without contrast ordered for 08/07/17 for further evaluation of the hyperdensity in the sella turcica area - Brain MRI: Subarachnoid hemorrhage within the posterior fossa subarachnoid spaces and along the tentorium less well seen on this study as compared to CT scan. Small focal area of restricted diffusion left cerebellum bordering the tentorium. This could represent a tiny acute/subacute infarct. Chronic white matter and basal nuclei ischemic changes. Mild moderate generalized volume loss. - Pituitary MRI: Unremarkable pre and post MRI of the pituitary gland. No adenoma seen. Residual subarachnoid hemorrhage in the posterior fossa subarachnoid spaces in cyst is less well seen on this study compared to high- resolution CT scan. Please refer to that report for additional details - Head CT: Re- demonstrated are residual areas of subarachnoid hemorrhage seen in the pre pontine and pre medullary cistern more so on the right side as well as along the tentorium. No new hemorrhages are identified. Mild moderate chronic periventricular white matter ischemic changes with scattered chronic bilateral basal nuclei lacunar type infarcts. Mild generalized volume loss Patient is stable for discharge home. Patient is not to go back to work until he is cleared by Neurology and PMD Dr. Cardenas as an outpatient. Patient is not to drive or life heavy machinery. Patient to only take the medications prescribed: 1.) Coreg 25mg twice a day: one tablet at 8AM and one tablet at 8PM 2.) Enalapril Maleate 20mg twice a day: one tablet at 8AM and one tablet at 8PM 3.) Lasix 40mg daily: one tablet at 10AM 4.) Hydralazine 25mg three times per day: one tablet at 10AM; one tablet at 4pm ; one tablet at 10pm 5.) Isosorbide Dinatrate 10mg twice a day: one tablet at 8AM and one tablet at 8PM 6.) Keppra 500mg twice a day: one tablet at 8AM and one tablet at 2pm 7.) Atorvastatin 40mg one tablet at 8pm 8.) Metformin 1000mg twice a day: one tablet at 8AM with breakfast and one tablet at 8pm with dinner --> please start 08/09/17 9.) Glipizide 5mg one tablet at 8AM with breakfast --> please start 08/09/17 10.) Onglyza 5mg one tablet at 2pm with lunch --> please start 08/09/17 Patient to follow up with primary care doctor: Dr. Cardenas within one week. Patient to have a referral from Dr. Cardenas for a neuro-crown pouncer. Patient to follow up with the following specialists: Cardiology: Dr. Jim Arellano Neurology: Dr. Laith Howell/Dr. Roque El paciente no debe regresar al trabajo hasta que sea aprobado por Neurology y Dr. Cardenas. El paciente no debe conducir o manejar maquinaria pesada. El paciente debe regresar a la ethan de emergencias si regresan los tala de dayana. This is a summary of the patient's hospitalization, please review EMR for further details Discharge Exam - Head Exam Head Exam: ATRAUMATIC, NORMAL INSPECTION - Eye Exam Eye Exam: EOMI (for the left eye ), Normal appearance, PERRL. absent: Scleral icterus Additional comments: Right Eye without ability to 100% abduct laterally - Respiratory Exam Respiratory Exam: Clear to PA & Lateral, NORMAL BREATHING PATTERN - Cardiovascular Exam Cardiovascular Exam: REGULAR RHYTHM, +S1, +S2 - GI/Abdominal Exam GI & Abdominal Exam: Normal Bowel Sounds, Soft. absent: Tenderness - Extremities Exam Extremities exam: normal inspection - Neurological Exam Neurological exam: Alert, Normal Gait, Oriented x3, Reflexes Normal Additional comments: Right Eye without ability to abduct laterally 5/5 bilateral upper and lower extremity strength Gait stable - Psychiatric Exam Psychiatric exam: Normal Affect, Normal Mood - Skin Skin Exam: Dry, Intact, Normal Color Discharge Plan - Discharge Medications Prescriptions: Atorvastatin [Lipitor] 40 mg PO HS #30 tab Carvedilol [Coreg] 25 mg PO BID #60 tab Enalapril Maleate [Vasotec] 20 mg PO DAILY #30 tab Furosemide [Lasix] 40 mg PO DAILY #30 tab GlipiZIDE SR [Glucotrol XL] 5 mg PO ACB #30 tab hydrALAZINE [Apresoline] 25 mg PO TID #90 tab Isosorbide Dinitrate [Isordil] 10 mg PO BID #60 tab levETIRAcetam [Keppra] 500 mg IVPB Q12H #60 vial levETIRAcetam [Keppra] 500 mg PO BID #60 tab metFORMIN [glucOPHAGE] 1,000 mg PO BID #60 tab Saxagliptin HCl [Onglyza] 5 mg PO DAILY #30 tab - Follow Up Plan Condition: CRITICAL Disposition: HOME/ ROUTINE Instructions: High Blood Pressure in Adults, Subarachnoid Hemorrhage, High Blood Pressure (DC), Saxagliptin, Controlling Your Blood Pressure Through Lifestyle, High Blood Pressure Emergencies, Atorvastatin, Carvedilol, Enalapril , Furosemide, Glipizide, Hydralazine, Isosorbide Dinitrate, Levetiracetam, Metformin Additional Instructions: Patient is stable for discharge home. Patient is not to go back to work until he is cleared by Neurology and PMD Dr. Cardenas as an outpatient. Patient is not to drive or life heavy machinery. Patient to only take the medications prescribed: 1.) Coreg 25mg twice a day: one tablet at 8AM and one tablet at 8PM 2.) Enalapril Maleate 20mg twice a day: one tablet at 8AM and one tablet at 8PM 3.) Lasix 40mg daily: one tablet at 10AM 4.) Hydralazine 25mg three times per day: one tablet at 10AM; one tablet at 4pm ; one tablet at 10pm 5.) Isosorbide Dinatrate 10mg twice a day: one tablet at 8AM and one tablet at 8PM 6.) Keppra 500mg twice a day: one tablet at 8AM and one tablet at 2pm 7.) Atorvastatin 40mg one tablet at 8pm 8.) Metformin 1000mg twice a day: one tablet at 8AM with breakfast and one tablet at 8pm with dinner --> please start 08/09/17 9.) Glipizide 5mg one tablet at 8AM with breakfast --> please start 08/09/17 10.) Onglyza 5mg one tablet at 2pm with lunch --> please start 08/09/17 Patient to follow up with primary care doctor: Dr. Cardenas within one week. Patient to have a referral from Dr. Cardenas for a neuro-crown pouncer. Patient to follow up with the following specialists: Cardiology: Dr. Jim Arellano Neurology: Dr. Laith Howell/Dr. Roque El paciente no debe regresar al trabajo hasta que sea aprobado por Neurology y Dr. Cardenas. El paciente no debe conducir o manejar maquinaria pesada. El paciente debe regresar a la ethan de emergencias si regresan los tala de dayana. Referrals: Jim Arellano MD [Staff Provider] - Fifi Cardenas MD [Staff Provider] - Laith Howell MD [Staff Provider] - Adryan Roque MD [Staff Provider] - <Andrew Robles - Last Filed: 08/08/17 14:45> Provider - Provider Date of Admission: 08/04/17 20:01 Attending physician: Andrew Robles MD Hospital Course - Lab Results Lab Results: Micro Results 08/04/17 22:06 Naris MRSA Culture (Admit) - Final MRSA NOT DETECTED Most Recent Lab Values WBC 7.4 K/uL (4.8-10.8) 08/08/17 07:28 RBC 3.81 Mil/uL (4.40-5.90) L 08/08/17 07:28 Hgb 11.8 g/dL (12.0-18.0) L 08/08/17 07:28 Hct 34.0 % (35.0-51.0) L 08/08/17 07:28 MCV 89.2 fL (80.0-94.0) 08/08/17 07:28 MCH 30.9 pg (27.0-31.0) 08/08/17 07:28 MCHC 34.6 g/dL (33.0-37.0) 08/08/17 07:28 RDW 14.3 % (11.5-14.5) 08/08/17 07:28 Plt Count 232 K/uL (130-400) 08/08/17 07:28 MPV 9.2 fL (7.2-11.7) 08/08/17 07:28 Neut % (Auto) 61.7 % (50.0-75.0) 08/08/17 07:28 Lymph % (Auto) 26.6 % (20.0-40.0) 08/08/17 07:28 [place] % (Auto) 8.9 % (0.0-10.0) 08/08/17 07: Eos % (Auto) 1.9 % (0.0-4.0) 08/08/17 07: Baso % (Auto) 0.9 % (0.0-2.0) 08/08/17 07:28 Neut # (Auto) 4.6 K/uL (1.8-7.0) 08/08/17 07:28 Lymph # (Auto) 2.0 K/uL (1.0-4.3) 08/08/17 07:28 [place] # (Auto) 0.7 K/uL (0.0-0.8) 08/08/17 07:28 Eos # (Auto) 0.1 K/uL (0.0-0.7) 08/08/17 07:28 Baso # (Auto) 0.1 K/uL (0.0-0.2) 08/08/17 07:28 PT 11.7 SECONDS (9.7-12.2) 08/04/17 21:06 INR 1.1 08/04/17 21:06 APTT 34 SECONDS (21-34) 08/04/17 21:06 Puncture Site Rba 08/04/17 21:14 pCO2 31 mm/Hg (35-45) L 08/04/17 21:14 pO2 262 mm/Hg (80-100) H 08/04/17 21:14 HCO3 21.3 mmol/L (21-28) 08/04/17 21:14 ABG pH 7.40 (7.35-7.45) 08/04/17 21:14 ABG Total CO2 20.2 mmol/L (22-28) L 08/04/17 21:14 ABG O2 Saturation 100.1 % (95-98) H 08/04/17 21:14 ABG Base Excess -4.6 mmol/L (-2.0-3.0) L 08/04/17 21:14 ABG Hemoglobin 12.3 g/dL (11.7-17.4) 08/04/17 21:14 ABG Carboxyhemoglobin 1.8 % (0.5-1.5) H 08/04/17 21:14 POC ABG HHb (Measured) -0.1 % (0.0-5.0) L 08/04/17 21:14 ABG Methemoglobin 1.3 % (0.0-3.0) 08/04/17 21:14 Davon Test Pos 08/04/17 21:14 A-a O2 Difference 412.0 mm/Hg 08/04/17 21:14 Respiratory Index 1.6 08/04/17 21:14 Hgb O2 Saturation 97.1 % (95.0-98.0) 08/04/17 21:14 Liter Flow 15.0 08/04/17 21:14 FiO2 100.0 % 08/04/17 21:14 Sodium 136 mmol/L (132-148) 08/08/17 07:28 Potassium 3.8 mmol/L (3.6-5.2) 08/08/17 07:28 Chloride 105 mmol/L (98-107) 08/08/17 07:28 Carbon Dioxide 21 mmol/L (22-30) L 08/08/17 07:28 Anion Gap 14 (10-20) 08/08/17 07:28 BUN 31 mg/dL (9-20) H 08/08/17 07:28 Creatinine 1.4 mg/dL (0.8-1.5) 08/08/17 07:28 Est GFR ( Amer) > 60 08/08/17 07:28 Est GFR (Non-Af Amer) 52 08/08/17 07:28 POC Glucose (mg/dL) 224 mg/dL (65-110) H 08/08/17 11:27 Random Glucose 110 mg/dL (75-110) 08/08/17 07:28 Hemoglobin A1c 11.8 % (4.2-6.5) H D 08/05/17 10:52 Calcium 8.4 mg/dl (8.6-10.4) L 08/08/17 07:28 Phosphorus 4.5 mg/dL (2.5-4.5) 08/08/17 07:28 Magnesium 2.1 mg/dL (1.6-2.3) 08/08/17 07:28 Total Bilirubin 0.2 mg/dL (0.2-1.3) 08/08/17 07:28 AST 96 U/L (17-59) H D 08/08/17 07:28 ALT 92 U/L (21-72) H D 08/08/17 07:28 Alkaline Phosphatase 174 U/L (38-126) H D 08/08/17 07:28 Troponin I 0.0840 ng/mL (0.00-0.120) 08/06/17 15:21 NT-Pro-B Natriuret Pep 8630 pg/mL (0-900) H 08/04/17 19:06 Total Protein 6.2 g/dL (6.3-8.3) L 08/08/17 07:28 Albumin 2.9 g/dL (3.5-5.0) L 08/08/17 07:28 Globulin 3.2 gm/dL (2.2-3.9) 08/08/17 07:28 Albumin/Globulin Ratio 0.9 (1.0-2.1) L 08/08/17 07:28 Triglycerides 65 mg/dL (0-149) D 08/05/17 06:00 Cholesterol 253 mg/dL (0-199) H 08/05/17 06:00 LDL Cholesterol Direct 154 mg/dL (0-129) H 08/05/17 06:00 HDL Cholesterol 82 mg/dL (30-70) H 08/05/17 06:00 Urine Color Yellow (YELLOW) 08/05/17 06:00 Urine Clarity Hazy (Clear) 08/05/17 06:00 Urine pH 5.0 (5.0-8.0) 08/05/17 06:00 Ur Specific Padroni 1.021 (1.003-1.030) 08/05/17 06:00 Urine Protein 2+ mg/dL (NEGATIVE) H 08/05/17 06:00 Urine Glucose (UA) 3+ mg/dL (Normal) H 08/05/17 06:00 Urine Ketones 1+ mg/dL (NEGATIVE) H 08/05/17 06:00 Urine Blood 1+ (NEGATIVE) H 08/05/17 06:00 Urine Nitrate Negative (NEGATIVE) 08/05/17 06:00 Urine Bilirubin Negative (NEGATIVE) 08/05/17 06:00 Urine Urobilinogen Normal mg/dL (0.2-1.0) 08/05/17 06:00 Ur Leukocyte Esterase Neg Lb/uL (Negative) 08/05/17 06:00 Urine WBC (Auto) 2 /hpf (0-5) 08/05/17 06:00 Urine RBC (Auto) 7 /hpf (0-3) H 08/05/17 06:00 Ur Squamous Epith Cells 2 /hpf (0-5) 08/05/17 06:00 Amorphous Sediment Occ /ul (<OCC) H 08/05/17 06:00 Urine Bacteria Rare (<OCC) 08/05/17 06:00 Attending/Attestation - Attestation I have personally seen and examined this patient.: Yes I have fully participated in the care of the patient.: Yes I have reviewed all pertinent clinical information, including history, physical exam and plan: Yes Notes (Text): 08/08/17 14:44 Patient was seen and examined with resident Dr. Heather Mix. Exam, assessment and plan and discharge instructions were gone over with Dr. Mix who also then went over the instructions with patient in [place] at the time of our exam. I informed patient's PMD Dr. Cardenas via text that patient was being discharged. Andrew Robles D.O.
[2017-08-08 13:36] VITALS: BP 146/92; PULSE 75; TEMP 98.6; O2SAT 97
== END 2017-08-08 14:17 | disposition home or self-care (01) | DRG 65 ==
LOC: C.ER 16:35 → C.9I 20:01 → C.6T 08-07 00:30
PROVIDERS: ADMIT Family Medicine; ATTEND Family Medicine
PROC: B31RYZZ Fluoroscopy of Intracranial Arteries using Other Contrast (ICD-10-PCS; principal; 2017-08-05 14:00)
DX: I60.8 Other nontraumatic subarachnoid hemorrhage (principal); I16.1 Hypertensive emergency; I50.22 Chronic systolic (congestive) heart failure; I42.6 Alcoholic cardiomyopathy; E78.00 Pure hypercholesterolemia, unspecified; I67.2 Cerebral atherosclerosis; E87.6 Hypokalemia; F10.20 Alcohol dependence, uncomplicated; H49.21 Sixth [abducent] nerve palsy, right eye; H49.22 Sixth [abducent] nerve palsy, left eye; I11.0 Hypertensive heart disease with heart failure; I25.10 Atherosclerotic heart disease of native coronary artery without angina pectoris; J44.9 Chronic obstructive pulmonary disease, unspecified; Z79.4 Long term (current) use of insulin; Z91.19 Patient's noncompliance with other medical treatment and regimen; Z95.5 Presence of coronary angioplasty implant and graft